=== PATIENT | female | born 1930 | race Caucasian/White ===

== ENCOUNTER 2016-07-04 15:36 | Inpatient (IN) ==
--- NOTE | 2016-07-04 16:04 | Emergency Department Note ---
Disposition Clinical Impression: Altered mental status, Pneumonia, UTI (urinary tract infection) Disposition: Admitted As Inpatient Condition: Good General Adult HPI - General Chief complaint: ED Altered Mental Status Stated complaint: altered mental Time Seen by Provider: 07/04/16 15:37 Source: patient, EMS Limitations: altered mental status, age - History of Present Illness Pain Scale: 0 - Related Data Home Medications Medication Instructions Recorded Confirmed Alprazolam [Xanax 1 MG Tablet] 1 mg PO TID PRN 07/04/16 07/04/16 Ascorbic Acid [Vitamin C] 1,000 mg PO DAILY 07/04/16 07/04/16 Brimonidine Tartrate/Timolol 1 drop BOTH EYES BID 07/04/16 07/04/16 [Combigan Eye Drops] Brinzolamide 1% [Azopt] 1 drop BOTH EYES QID 07/04/16 07/04/16 Candesartan Cilexetil [Atacand] 4 mg PO DAILY 07/04/16 07/04/16 Cholecalciferol (D-3) [Vitamin D] 1,000 unit PO DAILY 07/04/16 07/04/16 Cyanocobalamin (Vitamin B-12) 1,000 mcg PO DAILY 07/04/16 07/04/16 [Vitamin B12] Cyclosporine [Restasis] 1 each BOTH EYES BID 07/04/16 07/04/16 Docusate [Colace] 100 mg PO BID 07/04/16 07/04/16 Ferrous Sulfate 325 mg PO DAILY 07/04/16 07/04/16 Fluticasone Propionate Nasal 100 mcg NS DAILY 07/04/16 07/04/16 [Flonase] Fluticasone/Salmeterol [Advair 1 each IH BID 07/04/16 07/04/16 250-50 Diskus] Furosemide [Lasix] 20 mg PO DAILY 07/04/16 07/04/16 Latanoprost [Xalatan] 1 drop BOTH EYES HS 07/04/16 07/04/16 Levalbuterol HCl [Xopenex Neb] 1.25 mg IH QID 07/04/16 07/04/16 Levothyroxine [Synthroid] 100 mcg PO DAILY 07/04/16 07/04/16 Metoprolol XL (24 HR) Succ [Toprol 50 mg PO DAILY 07/04/16 07/04/16 XL] Nitroglycerin 0.3 mg SL Q5MIN PRN 07/04/16 07/04/16 Nystatin/Triamcinolone CRM 1 appl TP Q48H 07/04/16 07/04/16 [Mycolog] Omeprazole/Sodium Bicarbonate 1 each PO DAILY 07/04/16 07/04/16 [Zegerid 40 mg Capsule] Oxycodone HCl/Acetaminophen 1 each PO Q4H PRN 07/04/16 07/04/16 [Percocet 10-325 mg Tablet] Oxygen 2.5 l NS AD 07/04/16 07/04/16 PredniSONE 10 mg PO DAILY 07/04/16 07/04/16 Sertraline [Zoloft] 50 mg PO DAILY 07/04/16 07/04/16 Sodium Chloride for inhalation 4 ml IH BID 07/04/16 07/04/16 [Nebusal] Ubidecarenone [Coenzyme Q10] 200 mg PO DAILY 07/04/16 07/04/16 Vit C/E/Zn/Coppr/Lutein/Zeaxan 2 cap PO DAILY 07/04/16 07/04/16 [Preservision Areds 2 Softgel] Allergies Allergy/AdvReac Type Severity Reaction Status Date / Time escitalopram [From Lexapro] Allergy See Verified 07/04/16 15:41 Comments sulfamethoxazole Allergy See Verified 07/04/16 15:41 [From Bactrim] Comments trimethoprim [From Bactrim] Allergy See Verified 07/04/16 15:41 Comments Past Medical History - Past Medical History Medical history: Reports: atrial fibrillation, CHF, COPD, GERD, hyperlipidemia, hypertension, osteoporosis, venous stasis, other Psychiatric history: Reports: depression - Social History Smoking Status: Never smoker Alcohol use: Reports: none Drug use: Reports: none Physical Exam - General Limitations: altered mental status, age General appearance: in no apparent distress, lethargic Course - Reevaluation(s) Reevaluation #1: I saw the patient with resident, Dr. Dillon. Patient presents with altered mental status. She lives at home with family. They report that she is not eating or drinking and not urinating. They say that she is confused. They say she is decreased responsiveness as well. I find the patient to be responsive. However she lies in the bed with her eyes closed claiming that she is legally blind and therefore has to keep them closed. Further conversation indicates that the patient is indeed confused. She looks overall very unhealthy. She was just released from an outside facility after several days of admission for urinary tract infection and altered mental status that according to family was not dissimilar to today's presentation. We will get a workup going. We will get labs and a urine and some imaging studies. Neurologic examination does not indicate any focal findings. There are no signs of head trauma. Disposition will be based on diagnostic results and reevaluation. Time: 16:04 Vital Signs Temperature 98.1 F 07/04/16 15:37 Pulse Rate 77 07/04/16 15:37 Respiratory Rate 16 07/04/16 15:37 Blood Pressure 164/85 07/04/16 15:37 O2 Sat by Pulse Oximetry 97 07/04/16 15:37 Temperature 97.4 F L 07/08/16 11:16 Pulse Rate 82 07/08/16 11:16 Respiratory Rate 25 07/08/16 12:27 Blood Pressure 154/83 07/08/16 11:16 O2 Sat by Pulse Oximetry 99 07/08/16 12:27 Oxygen Delivery Oxygen Delivery Nasal Cannula Medical Decision Making - Lab Data Result diagrams: 07/08/16 04:28 07/08/16 04:28 Lab Results 07/04/16 07/04/16 07/04/16 Range/Units 16:25 16:38 16:38 WBC 11.0 (4.3-11.1) K/mcL RBC 4.48 (3.82-4.97) M/mcL Hgb 13.6 (11.5-15.4) g/dL Hct 43.7 (35.3-44.9) % MCV 97.5 (83.0-100.0) fL MCH 30.4 (28.0-33.3) pg MCHC 31.1 L (31.6-35.5) g/dL RDW 14.0 (11.5-14.5) % Plt Count 253 (140-400) K/mcL MPV 9.4 (9.4-12.4) fL Immature Gran % 3.4 (0-4) % Seg Neutrophils % 75.4 % Lymphocytes % 18.5 % Monocytes % 2.2 % Eosinophils % 0.0 % Basophils % 0.5 % Neutrophils # 8.3 (1.6-8.9) K/mcL Lymphocytes # 2.0 (0.6-4.6) K/mcL Monocytes # 0.2 (0.0-1.3) K/mcL Eosinophils # 0.0 (0.0-0.6) K/mcL Basophils # 0.1 (0.0-0.2) K/mcL PT 13.0 H (9.4-12.1) Seconds INR 1.2 ABG pH 7.38 (7.32-7.45) pH Units ABG pCO2 79 H* (35-45) mmHg ABG pO2 97 (85-104) mmHg ABG HCO3 46.7 H (21-27) mEQ/L ABG Total CO2 49.1 H (20-26) mEq/L ABG O2 Saturation 97 (95-98) % ABG Base Excess 16.3 H (-2.0 to 3.0) mEq/L Liter Flow 3 L/MIN Blood Gas Modality [place] Inspired O2 32 % Sodium (136-145) mEq/L Potassium (3.5-4.5) mEq/L Chloride (98-109) mEq/L Carbon Dioxide (19-29) mEq/L BUN (7-20) mg/dL Creatinine (0.57-1.11) mg/dL Est GFR ( Amer) (> 60) Est GFR (Non-Af Amer) (> 60) BUN/Creatinine Ratio (6-26) Glucose (70-99) mg/dL Calculated Osmolality (280-300) Lactic Acid (0.5-2.2) mmol/L Calcium (8.6-10.8) mg/dL Phosphorus (2.3-4.7) mg/dL Magnesium (1.6-2.6) mg/dL Total Bilirubin (0.2-1.2) mg/dL Direct Bilirubin (0.0-0.5) mg/dL Indirect Bilirubin (0.0-1.2) mg/dL AST (5-34) Units/L ALT (0-55) Units/L Alkaline Phosphatase (38-126) Units/L Ammonia (18-72) mcmol/L Troponin I (0-0.03) ng/mL Serum Total Protein (6.0-8.3) g/dL Albumin (3.5-5.0) g/dL Globulin (2.4-3.5) g/dL Albumin/Globulin Ratio (1.1-2.2) TSH (0.350-4.840) mcIU/mL Urine Color (Yellow) Urine Clarity (Clear) Urine pH (5.0-8.0) pH Units Ur Specific [place] (1.010-1.025) Urine Protein (Neg-Trace) mg/dL Urine Glucose (UA) (Normal) mg/dL Urine Ketones (Negative) mg/dL Urine Blood (Negative) Urine Nitrite (Negative) Urine Bilirubin (Negative) Urine Urobilinogen (Normal) mg/dL Ur Leukocyte Esterase (Negative) Urine Microscopic RBC (0-3) per hpf Urine Microscopic WBC (0-3) per hpf Ur Squamous Epith Cells (None-Few) per lpf Urine Bacteria (None-Few) per hpf Hyaline Casts (None-Few) per lpf Urine Yeast (None Seen) per hpf Ur Culture Indicated? (NO) 07/04/16 07/04/16 07/04/16 Range/Units 16:38 16:38 16:38 WBC (4.3-11.1) K/mcL RBC (3.82-4.97) M/mcL Hgb (11.5-15.4) g/dL Hct (35.3-44.9) % MCV (83.0-100.0) fL MCH (28.0-33.3) pg MCHC (31.6-35.5) g/dL RDW (11.5-14.5) % Plt Count (140-400) K/mcL MPV (9.4-12.4) fL Immature Gran % (0-4) % Seg Neutrophils % % Lymphocytes % % Monocytes % % Eosinophils % % Basophils % % Neutrophils # (1.6-8.9) K/mcL Lymphocytes # (0.6-4.6) K/mcL Monocytes # (0.0-1.3) K/mcL Eosinophils # (0.0-0.6) K/mcL Basophils # (0.0-0.2) K/mcL PT (9.4-12.1) Seconds INR ABG pH (7.32-7.45) pH Units ABG pCO2 (35-45) mmHg ABG pO2 (85-104) mmHg ABG HCO3 (21-27) mEQ/L ABG Total CO2 (20-26) mEq/L ABG O2 Saturation (95-98) % ABG Base Excess (-2.0 to 3.0) mEq/L Liter Flow L/MIN Blood Gas Modality Inspired O2 % Sodium 137 (136-145) mEq/L Potassium 4.1 (3.5-4.5) mEq/L Chloride 89 L (98-109) mEq/L Carbon Dioxide 39 H (19-29) mEq/L BUN 23 H (7-20) mg/dL Creatinine 0.83 (0.57-1.11) mg/dL Est GFR ( Amer) > 60 (> 60) Est GFR (Non-Af Amer) > 60 (> 60) BUN/Creatinine Ratio 28 H (6-26) Glucose 124 H (70-99) mg/dL Calculated Osmolality 289 (280-300) Lactic Acid 1.1 (0.5-2.2) mmol/L Calcium 9.8 (8.6-10.8) mg/dL Phosphorus 4.0 (2.3-4.7) mg/dL Magnesium 1.0 L (1.6-2.6) mg/dL Total Bilirubin 0.4 (0.2-1.2) mg/dL Direct Bilirubin 0.2 (0.0-0.5) mg/dL Indirect Bilirubin 0.2 (0.0-1.2) mg/dL AST 17 (5-34) Units/L ALT 7 (0-55) Units/L Alkaline Phosphatase 172 H (38-126) Units/L Ammonia (18-72) mcmol/L Troponin I 0.02 (0-0.03) ng/mL Serum Total Protein 6.4 (6.0-8.3) g/dL Albumin 2.2 L (3.5-5.0) g/dL Globulin 4.2 H (2.4-3.5) g/dL Albumin/Globulin Ratio 0.5 L (1.1-2.2) TSH 3.872 (0.350-4.840) mcIU/mL Urine Color (Yellow) Urine Clarity (Clear) Urine pH (5.0-8.0) pH Units Ur Specific [place] (1.010-1.025) Urine Protein (Neg-Trace) mg/dL Urine Glucose (UA) (Normal) mg/dL Urine Ketones (Negative) mg/dL Urine Blood (Negative) Urine Nitrite (Negative) Urine Bilirubin (Negative) Urine Urobilinogen (Normal) mg/dL Ur Leukocyte Esterase (Negative) Urine Microscopic RBC (0-3) per hpf Urine Microscopic WBC (0-3) per hpf Ur Squamous Epith Cells (None-Few) per lpf Urine Bacteria (None-Few) per hpf Hyaline Casts (None-Few) per lpf Urine Yeast (None Seen) per hpf Ur Culture Indicated? (NO) 07/04/16 07/04/16 Range/Units 16:38 18:52 WBC (4.3-11.1) K/mcL RBC (3.82-4.97) M/mcL Hgb (11.5-15.4) g/dL Hct (35.3-44.9) % MCV (83.0-100.0) fL MCH (28.0-33.3) pg MCHC (31.6-35.5) g/dL RDW (11.5-14.5) % Plt Count (140-400) K/mcL MPV (9.4-12.4) fL Immature Gran % (0-4) % Seg Neutrophils % % Lymphocytes % % Monocytes % % Eosinophils % % Basophils % % Neutrophils # (1.6-8.9) K/mcL Lymphocytes # (0.6-4.6) K/mcL Monocytes # (0.0-1.3) K/mcL Eosinophils # (0.0-0.6) K/mcL Basophils # (0.0-0.2) K/mcL PT (9.4-12.1) Seconds INR ABG pH (7.32-7.45) pH Units ABG pCO2 (35-45) mmHg ABG pO2 (85-104) mmHg ABG HCO3 (21-27) mEQ/L ABG Total CO2 (20-26) mEq/L ABG O2 Saturation (95-98) % ABG Base Excess (-2.0 to 3.0) mEq/L Liter Flow L/MIN Blood Gas Modality Inspired O2 % Sodium (136-145) mEq/L Potassium (3.5-4.5) mEq/L Chloride (98-109) mEq/L Carbon Dioxide (19-29) mEq/L BUN (7-20) mg/dL Creatinine (0.57-1.11) mg/dL Est GFR ( Amer) (> 60) Est GFR (Non-Af Amer) (> 60) BUN/Creatinine Ratio (6-26) Glucose (70-99) mg/dL Calculated Osmolality (280-300) Lactic Acid (0.5-2.2) mmol/L Calcium (8.6-10.8) mg/dL Phosphorus (2.3-4.7) mg/dL Magnesium (1.6-2.6) mg/dL Total Bilirubin (0.2-1.2) mg/dL Direct Bilirubin (0.0-0.5) mg/dL Indirect Bilirubin (0.0-1.2) mg/dL AST (5-34) Units/L ALT (0-55) Units/L Alkaline Phosphatase (38-126) Units/L Ammonia 13 L (18-72) mcmol/L Troponin I (0-0.03) ng/mL Serum Total Protein (6.0-8.3) g/dL Albumin (3.5-5.0) g/dL Globulin (2.4-3.5) g/dL Albumin/Globulin Ratio (1.1-2.2) TSH (0.350-4.840) mcIU/mL Urine Color Yellow (Yellow) Urine Clarity Cloudy A (Clear) Urine pH 5.5 (5.0-8.0) pH Units Ur Specific [place] 1.014 (1.010-1.025) Urine Protein Negative (Neg-Trace) mg/dL Urine Glucose (UA) Normal (Normal) mg/dL Urine Ketones Negative (Negative) mg/dL Urine Blood Negative (Negative) Urine Nitrite Negative (Negative) Urine Bilirubin Negative (Negative) Urine Urobilinogen Normal (Normal) mg/dL Ur Leukocyte Esterase Large H (Negative) Urine Microscopic RBC 0-3 (0-3) per hpf Urine Microscopic WBC TNTC H (0-3) per hpf Ur Squamous Epith Cells Few (None-Few) per lpf Urine Bacteria Few (None-Few) per hpf Hyaline Casts Few (None-Few) per lpf Urine Yeast Moderate H (None Seen) per hpf Ur Culture Indicated? YES A (NO) Attestation Statement - Attestation Attestation: I, Dr. Diaz, examined this patient [id number] and my medical decision- making was reviewed with Dr. Dillon, Resident Physician. I agree with the documented findings, disposition and treatment plan as described except to the extent set forth below. Please see my progress notes for details.
--- NOTE | 2016-07-04 16:14 | Emergency Department Note ---
Disposition Clinical Impression: Altered mental status Qualifiers: Altered mental status type: unspecified Qualified Code(s): R41.82 - Altered mental status, unspecified Pneumonia Qualifiers: Pneumonia type: due to unspecified organism Laterality: left Lung location: unspecified part of lung Qualified Code(s): J18.9 - Pneumonia, unspecified organism UTI (urinary tract infection) Qualifiers: Urinary tract infection type: site unspecified Hematuria presence: without hematuria Qualified Code(s): N39.0 - Urinary tract infection, site not specified Disposition: Admitted As Inpatient Condition: Good Forms: ED Satisfaction Letter Altered Mental Status HPI - General Chief Complaint: ED Altered Mental Status Stated Complaint: altered mental Time Seen by Provider: 07/04/16 15:37 Source: patient, EMS Limitations: altered mental status, age Nursing Notes Reviewed: Yes Vital Signs Reviewed: Yes - History of Present Illness HPI Narrative: Patient here for evaluation of altered mental status. Patient is an 86-year- old female with previous heart history including CHF and pacemaker placement, COPD requiring home oxygen. Present by EMS without family present at time of initial interview. Patient is alert and able to answer questions however she does not remember her date [employer] to go on tangents. [facility] with UTI upon similar symptoms. - Related Data Home Medications Medication Instructions Recorded Confirmed Alprazolam [Xanax 1 MG Tablet] 1 mg PO TID PRN 07/04/16 07/04/16 Ascorbic Acid [Vitamin C] 1,000 mg PO DAILY 07/04/16 07/04/16 Brimonidine Tartrate/Timolol 1 drop BOTH EYES BID 07/04/16 07/04/16 [Combigan Eye Drops] Brinzolamide 1% [Azopt] 1 drop BOTH EYES QID 07/04/16 07/04/16 Candesartan Cilexetil [Atacand] 4 mg PO DAILY 07/04/16 07/04/16 Cholecalciferol (D-3) [Vitamin D] 1,000 unit PO DAILY 07/04/16 07/04/16 Cyanocobalamin (Vitamin B-12) 1,000 mcg PO DAILY 07/04/16 07/04/16 [Vitamin B12] Cyclosporine [Restasis] 1 each BOTH EYES BID 07/04/16 07/04/16 Docusate [Colace] 100 mg PO BID 07/04/16 07/04/16 Ferrous Sulfate 325 mg PO DAILY 07/04/16 07/04/16 Fluticasone Propionate Nasal 100 mcg NS DAILY 07/04/16 07/04/16 [Flonase] Fluticasone/Salmeterol [Advair 1 each IH BID 07/04/16 07/04/16 250-50 Diskus] Furosemide [Lasix] 20 mg PO DAILY 07/04/16 07/04/16 Latanoprost [Xalatan] 1 drop BOTH EYES HS 07/04/16 07/04/16 Levalbuterol HCl [Xopenex Neb] 1.25 mg IH QID 07/04/16 07/04/16 Levothyroxine [Synthroid] 100 mcg PO DAILY 07/04/16 07/04/16 Metoprolol XL (24 HR) Succ [Toprol 50 mg PO DAILY 07/04/16 07/04/16 XL] Nitroglycerin 0.3 mg SL Q5MIN PRN 07/04/16 07/04/16 Nystatin/Triamcinolone CRM 1 appl TP Q48H 07/04/16 07/04/16 [Mycolog] Omeprazole/Sodium Bicarbonate 1 each PO DAILY 07/04/16 07/04/16 [Zegerid 40 mg Capsule] Oxycodone HCl/Acetaminophen 1 each PO Q4H PRN 07/04/16 07/04/16 [Percocet 10-325 mg Tablet] Oxygen 2.5 l NS AD 07/04/16 07/04/16 PredniSONE 10 mg PO DAILY 07/04/16 07/04/16 Sertraline [Zoloft] 50 mg PO DAILY 07/04/16 07/04/16 Sodium Chloride for inhalation 4 ml IH BID 07/04/16 07/04/16 [Nebusal] Ubidecarenone [Coenzyme Q10] 200 mg PO DAILY 07/04/16 07/04/16 Vit C/E/Zn/Coppr/Lutein/Zeaxan 2 cap PO DAILY 07/04/16 07/04/16 [Preservision Areds 2 Softgel] Allergies Allergy/AdvReac Type Severity Reaction Status Date / Time escitalopram [From Lexapro] Allergy See Verified 07/04/16 15:41 Comments sulfamethoxazole Allergy See Verified 07/04/16 15:41 [From Bactrim] Comments trimethoprim [From Bactrim] Allergy See Verified 07/04/16 15:41 Comments All systems ED: reviewed and negative except as stated. Constitutional: Reports: chills, weakness. Denies: fever Eyes: Denies: eye pain ENT ED: Denies: ear pain Cardiovascular: Denies: chest pain Respiratory: Denies: cough Gastrointestinal: Denies: abdominal pain, nausea, vomiting Genitourinary: Denies: urgency, dysuria Musculoskeletal: Denies: back pain Integumentary: Denies: rash Neurological: Reports: weakness, confusion. Denies: headache Endocrine: Reports: fatigue Past Medical History - Past Medical History Medical history: Reports: CHF, COPD, hypertension - Social History Smoking Status: Never smoker Alcohol use: Reports: none Drug use: Reports: none Physical Exam - General Limitations: altered mental status, age General appearance: in no apparent distress, lethargic - Head Head exam: atraumatic, normocephalic - Eye Eye exam: Present: normal appearance - ENT ENT exam: normal exam, normal oropharynx, mucous membranes dry - Neck Neck exam: Present: normal inspection - Chest Chest inspection: Present: normal inspection, symmetric chest wall rise, other ( candidal infection). Absent: tenderness - Respiratory Respiratory exam: Present: normal lung sounds bilaterally. 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 Initial ulcer superficial through the epidermis. Second ulcer into the dermis. Purple color change of the skin approximately 8 cm x 9 cm without erythema or purulent drainage.) - Neurological Exam Neurological exam: Present: other (Able to state name birthdate year and converse as well as follow simple commands.) - Skin Skin exam: Present: other (As described in other organ systems) Course - Reevaluation(s) Reevaluation #1: After discussing with social work. Patient has not been seen at this facility because the patient recently moved from [place]. Patient was initially healthy and then 1 day was not able to walk. Patient has had workup for that at the [facility] in February as well as geriatric eval which was unable to find a specific problem. Patient passed competency test. Patient is currently undergoing private home health care with cost about $12,000 monthly. Family moved to be closer to her grandson as he is able to help participate in care. Reevaluation #2: Patient's x-ray concerning for pneumonia. In light of her continued mental status the patient was placed on BiPAP. BiPAP delayed secondary to CO2 elevation appearing compensated and not likely causing her to mental status change. Patient has been on home oxygen that has been kept around 100% on 2 L. This time the patient was initially given ceftriaxone for concern of urinary tract infection however after chest x-ray reveals concern for pneumonia azithromycin was also added. Patient is not tolerating BiPAP and is upset that we would try to keep her from sleeping. Patient states she does not want that and she was told that we would put it on without pressure just to help get her used to it. Patient states she is not having any problems and is able to state her name and what is going on, that she is at the hospital. At this time will continue to encourage her getting used to BiPAP but she is not having an acute need for support. Recommend continued breathing treatments and encouragement of BiPAP at this time. - Consultations Consultation #1: Discussed with hospitalist. Dr. Ovalle. Patient accepted for admission. Vital Signs Temperature 98.1 F 07/04/16 15:37 Pulse Rate 77 07/04/16 15:37 Respiratory Rate 16 07/04/16 15:37 Blood Pressure 164/85 07/04/16 15:37 O2 Sat by Pulse Oximetry 97 07/04/16 15:37 Temperature 98.1 F 07/04/16 15:37 Pulse Rate 71 07/04/16 20:25 Respiratory Rate 14 07/04/16 20:25 Blood Pressure 145/62 07/04/16 20:25 O2 Sat by Pulse Oximetry 99 07/04/16 20:25 Oxygen Delivery Oxygen Delivery Nasal Cannula Altered Mental Status - Medical Records Medical records reviewed: Yes I reviewed the patient's medical records. - Lab Data Lab results reviewed: Yes I reviewed the patient's lab results. Result diagrams: 07/04/16 16:38 07/04/16 16:38 Lab Results 07/04/16 07/04/16 07/04/16 Range/Units 16:25 16:38 16:38 WBC 11.0 (4.3-11.1) K/mcL RBC 4.48 (3.82-4.97) M/mcL Hgb 13.6 (11.5-15.4) g/dL Hct 43.7 (35.3-44.9) % MCV 97.5 (83.0-100.0) fL MCH 30.4 (28.0-33.3) pg MCHC 31.1 L (31.6-35.5) g/dL RDW 14.0 (11.5-14.5) % Plt Count 253 (140-400) K/mcL MPV 9.4 (9.4-12.4) fL Immature Gran % 3.4 (0-4) % Seg Neutrophils % 75.4 % Lymphocytes % 18.5 % Monocytes % 2.2 % Eosinophils % 0.0 % Basophils % 0.5 % Neutrophils # 8.3 (1.6-8.9) K/mcL Lymphocytes # 2.0 (0.6-4.6) K/mcL Monocytes # 0.2 (0.0-1.3) K/mcL Eosinophils # 0.0 (0.0-0.6) K/mcL Basophils # 0.1 (0.0-0.2) K/mcL PT 13.0 H (9.4-12.1) Seconds INR 1.2 ABG pH 7.38 (7.32-7.45) pH Units ABG pCO2 79 H* (35-45) mmHg ABG pO2 97 (85-104) mmHg ABG HCO3 46.7 H (21-27) mEQ/L ABG Total CO2 49.1 H (20-26) mEq/L ABG O2 Saturation 97 (95-98) % ABG Base Excess 16.3 H (-2.0 to 3.0) mEq/L Liter Flow 3 L/MIN Blood Gas Modality NC Inspired O2 32 % Sodium (136-145) mEq/L Potassium (3.5-4.5) mEq/L Chloride (98-109) mEq/L Carbon Dioxide (19-29) mEq/L BUN (7-20) mg/dL Creatinine (0.57-1.11) mg/dL Est GFR ( Amer) (> 60) Est GFR (Non-Af Amer) (> 60) BUN/Creatinine Ratio (6-26) Glucose (70-99) mg/dL Calculated Osmolality (280-300) Lactic Acid (0.5-2.2) mmol/L Calcium (8.6-10.8) mg/dL Phosphorus (2.3-4.7) mg/dL Magnesium (1.6-2.6) mg/dL Total Bilirubin (0.2-1.2) mg/dL Direct Bilirubin (0.0-0.5) mg/dL Indirect Bilirubin (0.0-1.2) mg/dL AST (5-34) Units/L ALT (0-55) Units/L Alkaline Phosphatase (38-126) Units/L Ammonia (18-72) mcmol/L Troponin I (0-0.03) ng/mL Serum Total Protein (6.0-8.3) g/dL Albumin (3.5-5.0) g/dL Globulin (2.4-3.5) g/dL Albumin/Globulin Ratio (1.1-2.2) TSH (0.350-4.840) mcIU/mL Urine Color (Yellow) Urine Clarity (Clear) Urine pH (5.0-8.0) pH Units Ur Specific Mineral (1.010-1.025) Urine Protein (Neg-Trace) mg/dL Urine Glucose (UA) (Normal) mg/dL Urine Ketones (Negative) mg/dL Urine Blood (Negative) Urine Nitrite (Negative) Urine Bilirubin (Negative) Urine Urobilinogen (Normal) mg/dL Ur Leukocyte Esterase (Negative) Urine Microscopic RBC (0-3) per hpf Urine Microscopic WBC (0-3) per hpf Ur Squamous Epith Cells (None-Few) per lpf Urine Bacteria (None-Few) per hpf Hyaline Casts (None-Few) per lpf Urine Yeast (None Seen) per hpf Ur Culture Indicated? (NO) 07/04/16 07/04/16 07/04/16 Range/Units 16:38 16:38 16:38 WBC (4.3-11.1) K/mcL RBC (3.82-4.97) M/mcL Hgb (11.5-15.4) g/dL Hct (35.3-44.9) % MCV (83.0-100.0) fL MCH (28.0-33.3) pg MCHC (31.6-35.5) g/dL RDW (11.5-14.5) % Plt Count (140-400) K/mcL MPV (9.4-12.4) fL Immature Gran % (0-4) % Seg Neutrophils % % Lymphocytes % % Monocytes % % Eosinophils % % Basophils % % Neutrophils # (1.6-8.9) K/mcL Lymphocytes # (0.6-4.6) K/mcL Monocytes # (0.0-1.3) K/mcL Eosinophils # (0.0-0.6) K/mcL Basophils # (0.0-0.2) K/mcL PT (9.4-12.1) Seconds INR ABG pH (7.32-7.45) pH Units ABG pCO2 (35-45) mmHg ABG pO2 (85-104) mmHg ABG HCO3 (21-27) mEQ/L ABG Total CO2 (20-26) mEq/L ABG O2 Saturation (95-98) % ABG Base Excess (-2.0 to 3.0) mEq/L Liter Flow L/MIN Blood Gas Modality Inspired O2 % Sodium 137 (136-145) mEq/L Potassium 4.1 (3.5-4.5) mEq/L Chloride 89 L (98-109) mEq/L Carbon Dioxide 39 H (19-29) mEq/L BUN 23 H (7-20) mg/dL Creatinine 0.83 (0.57-1.11) mg/dL Est GFR ( Amer) > 60 (> 60) Est GFR (Non-Af Amer) > 60 (> 60) BUN/Creatinine Ratio 28 H (6-26) Glucose 124 H (70-99) mg/dL Calculated Osmolality 289 (280-300) Lactic Acid 1.1 (0.5-2.2) mmol/L Calcium 9.8 (8.6-10.8) mg/dL Phosphorus 4.0 (2.3-4.7) mg/dL Magnesium 1.0 L (1.6-2.6) mg/dL Total Bilirubin 0.4 (0.2-1.2) mg/dL Direct Bilirubin 0.2 (0.0-0.5) mg/dL Indirect Bilirubin 0.2 (0.0-1.2) mg/dL AST 17 (5-34) Units/L ALT 7 (0-55) Units/L Alkaline Phosphatase 172 H (38-126) Units/L Ammonia (18-72) mcmol/L Troponin I 0.02 (0-0.03) ng/mL Serum Total Protein 6.4 (6.0-8.3) g/dL Albumin 2.2 L (3.5-5.0) g/dL Globulin 4.2 H (2.4-3.5) g/dL Albumin/Globulin Ratio 0.5 L (1.1-2.2) TSH 3.872 (0.350-4.840) mcIU/mL Urine Color (Yellow) Urine Clarity (Clear) Urine pH (5.0-8.0) pH Units Ur Specific Mineral (1.010-1.025) Urine Protein (Neg-Trace) mg/dL Urine Glucose (UA) (Normal) mg/dL Urine Ketones (Negative) mg/dL Urine Blood (Negative) Urine Nitrite (Negative) Urine Bilirubin (Negative) Urine Urobilinogen (Normal) mg/dL Ur Leukocyte Esterase (Negative) Urine Microscopic RBC (0-3) per hpf Urine Microscopic WBC (0-3) per hpf Ur Squamous Epith Cells (None-Few) per lpf Urine Bacteria (None-Few) per hpf Hyaline Casts (None-Few) per lpf Urine Yeast (None Seen) per hpf Ur Culture Indicated? (NO) 07/04/16 07/04/16 Range/Units 16:38 18:52 WBC (4.3-11.1) K/mcL RBC (3.82-4.97) M/mcL Hgb (11.5-15.4) g/dL Hct (35.3-44.9) % MCV (83.0-100.0) fL MCH (28.0-33.3) pg MCHC (31.6-35.5) g/dL RDW (11.5-14.5) % Plt Count (140-400) K/mcL MPV (9.4-12.4) fL Immature Gran % (0-4) % Seg Neutrophils % % Lymphocytes % % Monocytes % % Eosinophils % % Basophils % % Neutrophils # (1.6-8.9) K/mcL Lymphocytes # (0.6-4.6) K/mcL Monocytes # (0.0-1.3) K/mcL Eosinophils # (0.0-0.6) K/mcL Basophils # (0.0-0.2) K/mcL PT (9.4-12.1) Seconds INR ABG pH (7.32-7.45) pH Units ABG pCO2 (35-45) mmHg ABG pO2 (85-104) mmHg ABG HCO3 (21-27) mEQ/L ABG Total CO2 (20-26) mEq/L ABG O2 Saturation (95-98) % ABG Base Excess (-2.0 to 3.0) mEq/L Liter Flow L/MIN Blood Gas Modality Inspired O2 % Sodium (136-145) mEq/L Potassium (3.5-4.5) mEq/L Chloride (98-109) mEq/L Carbon Dioxide (19-29) mEq/L BUN (7-20) mg/dL Creatinine (0.57-1.11) mg/dL Est GFR ( Amer) (> 60) Est GFR (Non-Af Amer) (> 60) BUN/Creatinine Ratio (6-26) Glucose (70-99) mg/dL Calculated Osmolality (280-300) Lactic Acid (0.5-2.2) mmol/L Calcium (8.6-10.8) mg/dL Phosphorus (2.3-4.7) mg/dL Magnesium (1.6-2.6) mg/dL Total Bilirubin (0.2-1.2) mg/dL Direct Bilirubin (0.0-0.5) mg/dL Indirect Bilirubin (0.0-1.2) mg/dL AST (5-34) Units/L ALT (0-55) Units/L Alkaline Phosphatase (38-126) Units/L Ammonia 13 L (18-72) mcmol/L Troponin I (0-0.03) ng/mL Serum Total Protein (6.0-8.3) g/dL Albumin (3.5-5.0) g/dL Globulin (2.4-3.5) g/dL Albumin/Globulin Ratio (1.1-2.2) TSH (0.350-4.840) mcIU/mL Urine Color Yellow (Yellow) Urine Clarity Cloudy A (Clear) Urine pH 5.5 (5.0-8.0) pH Units Ur Specific Mineral 1.014 (1.010-1.025) Urine Protein Negative (Neg-Trace) mg/dL Urine Glucose (UA) Normal (Normal) mg/dL Urine Ketones Negative (Negative) mg/dL Urine Blood Negative (Negative) Urine Nitrite Negative (Negative) Urine Bilirubin Negative (Negative) Urine Urobilinogen Normal (Normal) mg/dL Ur Leukocyte Esterase Large H (Negative) Urine Microscopic RBC 0-3 (0-3) per hpf Urine Microscopic WBC TNTC H (0-3) per hpf Ur Squamous Epith Cells Few (None-Few) per lpf Urine Bacteria Few (None-Few) per hpf Hyaline Casts Few (None-Few) per lpf Urine Yeast Moderate H (None Seen) per hpf Ur Culture Indicated? YES A (NO) - Radiology Data Radiology results reviewed: Yes I reviewed the patient's radiology results. - EKG Data EKG attestation: Yes I reviewed and interpreted this EKG. EKG results narrative: EKG shows paced rhythm with ventricular rate of 83 bpm. NH interval 159. QRS 155. QTC 448. Discogram ST segment elevation to V1 and V2 of approximately 1.5 boxes. T-wave inversions in lead 3 and aVF. No previous EKG. TPA Checklist - LKW: 3-4.5 hrs Add. Contraindications Patient/family understanding: The patient/family members have been counseled and understood the risk, benefit , and alternatives of treatment.
[2016-07-04 16:36] LABS: ABG Base Excess 16.3 mEq/L (-2.0 to 3.0); ABG HCO3 46.7 mEQ/L (21-27); ABG Oxygen Saturation 97 % (95-98); ABG PH 7.38 pH Units (7.32-7.45); ABG PO2 97 mmHg (85-104); ABG TCO2 49.1 mEq/L (20-26)
[2016-07-04 16:38] LABS: ABG PCO2 79 mmHg (35-45); Blood Gas FiO2 32 %; Blood Gas Liter Flow 3 L/MIN
[2016-07-04] MEDS ORDERED: Ipratropium/Albuterol Neb 3 ML IH ONE (16:58)
[2016-07-04 17:02] LABS: Basophils # 0.1 K/mcL (0.0-0.2); Basophils % 0.5 %; Hematocrit 43.7 % (35.3-44.9); Hemoglobin 13.6 g/dL (11.5-15.4); Immature Granulocytes % 3.4 % (0-4); Lymphocytes % 18.5 %; Mean Corpuscular HGB Conc 31.1 g/dL (31.6-35.5); Mean Corpuscular Hemoglobin 30.4 pg (28.0-33.3); Mean Corpuscular Volume 97.5 fL (83.0-100.0); Mean Platelet Volume 9.4 fL (9.4-12.4); Monocytes # 0.2 K/mcL (0.0-1.3); Monocytes % 2.2 %; Neutrophils # 8.3 K/mcL (1.6-8.9); Platelet Count 253 K/mcL (140-400); Red Blood Count 4.48 M/mcL (3.82-4.97); Segmented Neutrophils % 75.4 %
[2016-07-04 17:08] LABS: INR 1.2
[2016-07-04 17:20] LABS: Alanine Aminotransferase 7 Units/L (0-55); Albumin 2.2 g/dL (3.5-5.0); Albumin/Globulin Ratio 0.5 (1.1-2.2); Alkaline Phosphatase 172 Units/L (38-126); Aspartate Amino Transferase 17 Units/L (5-34); BUN/Creatinine Ratio 28 (6-26); Bilirubin,Direct 0.2 mg/dL (0.0-0.5); Bilirubin,Indirect 0.2 mg/dL (0.0-1.2); Bilirubin,Total 0.4 mg/dL (0.2-1.2); Blood Urea Nitrogen 23 mg/dL (7-20); Calcium 9.8 mg/dL (8.6-10.8); Carbon Dioxide 39 mEq/L (19-29); Chloride 89 mEq/L (98-109); Globulin 4.2 g/dL (2.4-3.5); Glucose 124 mg/dL (70-99); Osmolality,Calculated 289 (280-300); Potassium 4.1 mEq/L (3.5-4.5); Sodium 137 mEq/L (136-145); Total Protein 6.4 g/dL (6.0-8.3); eGFR For African Americans > 60 (> 60); eGFR For Non-African Americans > 60 (> 60)
[2016-07-04 18:14] LABS: Thyroid Stimulating Hormone 3.872 mcIU/mL (0.350-4.840)
[2016-07-04 19:03] LABS: Bilirubin,Urine Negative (Negative); Blood,Urine Negative (Negative); Clarity,Urine Cloudy (Clear); Color,Urine Yellow (Yellow); Glucose,Urine (UA) Normal (Normal); Ketones,Urine Negative (Negative); Leukocyte Esterase,Urine Large (Negative); Nitrite,Urine Negative (Negative); PH,Urine 5.5 pH Units (5.0-8.0); Protein,Urine Negative (Neg-Trace); Specific Gravity,Urine 1.014 (1.010-1.025); Urobilinogen,Urine Normal (Normal)
[2016-07-04 19:04] LABS: Squamous Epithelial Cell,Urine Few per lpf (None-Few); WBC,Urine TNTC per hpf (0-3)
[2016-07-04 19:15] LABS: RBC,Urine 0-3 per hpf (0-3)
[2016-07-04 19:16] LABS: Bacteria,Urine Few per hpf (None-Few); Hyaline Casts,Urine Few per lpf (None-Few); Yeast,Urine Moderate per hpf (None Seen)
[2016-07-04] MEDS ORDERED: Azithromycin 500 MG in D5% in Water 250 ML IVPB ONE (20:19)
[2016-07-04] MEDS ORDERED: Magnesium Sulfate 2 GM in D5% in Water 100 ML IVPB ONE (20:48)
[2016-07-04] MEDS ORDERED: Acetaminophen 325 MG TABLET PO PRN (22:07)
[2016-07-04] MEDS ORDERED: Naloxone 0.4 MG/ML INJ IVP PRN (22:07)
[2016-07-04] MEDS ORDERED: Nitroglycerin 0.4 MG TAB.SUBL SL PRN (22:17)
[2016-07-04] MEDS ORDERED: Albuterol 2.5 MG/3 ML NEBULIZER IH PRN (22:22)
--- NOTE | 2016-07-04 22:46 | Internal Med History&Physical ---
<Bethany Stein M - Last Filed: 07/04/16 23:40> Date of Encounter: 07/04/16 Time of Encounter: 22:28 Assessment and Plan (1) Pneumonia Current visit: Yes Status: Acute Patient with cough and some shortness of breath. CXR showed consolidative airspace disease of left lung base, moderate right basilar atelectasis, and mild diffuse interstitial edema. Ceftriaxone and Azithromycin initiated by ED Patient with recent admission to outside hospital for UTI, will treat for HCAP. Start Vancomycin and Zosyn. Duoneb treatments QIDR Albuterol nebulizer Q2 PRN titrate O2 to maintain O2 sat >92% Qualifiers: Pneumonia type: due to unspecified organism Laterality: left Lung location: unspecified part of lung Qualified Code(s): J18.9 - Pneumonia, unspecified organism (2) UTI (urinary tract infection) Current visit: Yes Status: Acute Patient with recent hospitalization for UTI. Urine cloudy in [place]. UA concerning for UTI, cultures pending. Rocephin/Azithromycin given by ED. Will start on Vanc/Zosyn for HCAP, which should also cover her UTI. Qualifiers: Urinary tract infection type: site unspecified Hematuria presence: without hematuria Qualified Code(s): N39.0 - Urinary tract infection, site not specified (3) Hypomagnesemia Current visit: Yes Status: Acute Magnesium of 1.0 2g magnesium sulfate IVPB given recheck in the morning. (4) COPD (chronic obstructive pulmonary disease) Current visit: Yes Status: Acute Wears 2L NC at home. titrate O2 to maintain O2 saturation > 92% duoneb treatments QIDR Albuterol nebulizer Q2hr PRN Qualifiers: COPD type: unspecified COPD Qualified Code(s): J44.9 - Chronic obstructive pulmonary disease, unspecified (5) Pressure ulcer of back Current visit: Yes Status: Acute Consult wound team Qualifiers: Pressure ulcer stage: unspecified pressure ulcer stage Qualified Code(s): L89.109 - Pressure ulcer of unspecified part of back, unspecified stage (6) Functional quadriplegia Current visit: Yes Status: Acute Patient has been bed bound for years, with know discernible cause. Per family, work up has not revealed any cause. She has 24 hour home health care. Turn and position Q2 hours Social work consulted Palliative care consulted (7) Altered mental status Current visit: Yes Status: Acute Patient alert and oriented x 2, but cannot remember birthdate. She answers questions appropriately and is aware of situation and context. CT head with no acute process Similar presentation as recent UTI. Likely due to infection. Qualifiers: Altered mental status type: unspecified Qualified Code(s): R41.82 - Altered mental status, unspecified (8) Hypertension Current visit: Yes Status: Acute Continued home doses of candesartan and metoprolol. Hydralazine 10mg IVP for SBP > 160. Qualifiers: Hypertension type: essential hypertension Qualified Code(s): I10 - Essential (primary) hypertension (9) DVT prophylaxis Current visit: Yes Status: Acute Up to chair BID as tolerated anti-embolic stockings Heparin 5,000u SQ BID Internal Medicine - H&P: HPI Chief complaint: Altered mental status Admitted From: Emergency Dept Plans for Post Hospital Care: [facility] History of present illness: Ms. Schulte is a 86 year old female with history of hypertension, hyperlipidemia , CAD s/p CABG, Afib, pacemaker, COPD presented to the ED with mental status change. Patient mildly confused and refusing to open her eyes, and family stated this is how she behaved when diagnosed with a UTI recently. Patient alert and oriented x 2, but cannot remember her own birthday. She reports worsening cough and shortness of breath. She wears oxygen at home. She denies any chest pain, palpitations, headache, nausea, vomiting or diarrhea. Evaluation in the ED was significant for CXR which showed consolidative airspace disease of left lung base, moderate right basilar atelectasis, and mild diffuse interstitial edema. UA consistent with UTI, cultures pending. Magnesium was low at 1.0 and she was given 2g of magnesium IVPB. Patient is functionally quadriplegic, having been bed bound for years and has 24 hour care at home. Per the family, she has been worked up for this, with no answers. On exam, patient is alert and oriented x 2, in no distress, and appears comfortable. Lungs have mild crackles in bilateral bases, Heart with regular rate and rhythm. Urine appears cloudy in sanches bag. Past Med Surg Social Fam HX - Past Medical History Medical history: atrial fibrillation, CHF, COPD, coronary artery disease, hyperlipidemia, hypertension Psychiatric history: depression - Past Surgical History Surgical History: coronary bypass (CABG), pacemaker - Social History Smoking Status: Never smoker Alcohol use: none Drug use: none Current living situation: Home Activity Level: Bed bound - Family History Mother Living Status: Age at : 69 Cause of : cva Father Living Status: Age at : 80 Cause of : CVA Internal Medicine - H&P: Meds Alprazolam [Xanax 1 MG Tablet] 1 mg PO TID PRN 07/04/16 [History] Ascorbic Acid [Vitamin C] 1,000 mg PO DAILY 07/04/16 [History] Brimonidine Tartrate/Timolol [Combigan Eye Drops] 1 drop BOTH EYES BID 07/04/16 [History] Brinzolamide 1% [Azopt] 1 drop BOTH EYES QID 07/04/16 [History] Candesartan Cilexetil [Atacand] 4 mg PO DAILY 07/04/16 [History] Cholecalciferol (D-3) [Vitamin D] 1,000 unit PO DAILY 07/04/16 [History] Cyanocobalamin (Vitamin B-12) [Vitamin B12] 1,000 mcg PO DAILY 07/04/16 [History ] Cyclosporine [Restasis] 1 each BOTH EYES BID 07/04/16 [History] Docusate [Colace] 100 mg PO BID 07/04/16 [History] Ferrous Sulfate 325 mg PO DAILY 07/04/16 [History] Fluticasone Propionate Nasal [Flonase] 100 mcg NS DAILY 07/04/16 [History] Fluticasone/Salmeterol [Advair 250-50 Diskus] 1 each IH BID 07/04/16 [History] Furosemide [Lasix] 20 mg PO DAILY 07/04/16 [History] Latanoprost [Xalatan] 1 drop BOTH EYES HS 07/04/16 [History] Levalbuterol HCl [Xopenex Neb] 1.25 mg IH QID 07/04/16 [History] Levothyroxine [Synthroid] 100 mcg PO DAILY 07/04/16 [History] Metoprolol XL (24 HR) Succ [Toprol XL] 50 mg PO DAILY 07/04/16 [History] Nitroglycerin 0.3 mg SL Q5MIN PRN 07/04/16 [History] Nystatin/Triamcinolone CRM [Mycolog] 1 appl TP Q48H 07/04/16 [History] Omeprazole/Sodium Bicarbonate [Zegerid 40 mg Capsule] 1 each PO DAILY 07/04/16 [ History] Oxycodone HCl/Acetaminophen [Percocet 10-325 mg Tablet] 1 each PO Q4H PRN [History] Oxygen 2.5 l NS AD 07/04/16 [History] PredniSONE 10 mg PO DAILY 07/04/16 [History] Sertraline [Zoloft] 50 mg PO DAILY 07/04/16 [History] Sodium Chloride for inhalation [Nebusal] 4 ml IH BID 07/04/16 [History] Ubidecarenone [Coenzyme Q10] 200 mg PO DAILY 07/04/16 [History] Vit C/E/Zn/Coppr/Lutein/Zeaxan [Preservision Areds 2 Softgel] 2 cap PO DAILY 06/08 [History] Allergies escitalopram [From Lexapro] Allergy (Verified 07/04/16 15:41) See Comments sulfamethoxazole [From Bactrim] Allergy (Verified 07/04/16 15:41) See Comments trimethoprim [From Bactrim] Allergy (Verified 07/04/16 15:41) See Comments All Systems PM: A 10-system review of systems was performed and is negative for pertinent findings except as documented above in the HPI. - Constitutional Constitutional: weakness, no chills, no fever(s), no night sweats - EENT Eyes: loss of vision (legally blind), no change in vision (legally blind), no discharge, no pain, no photophobia Ears: no ear discharge, no ear pain, no tinnitus Nose, mouth and throat: dry mouth, no dysphagia, no nasal discharge, no neck pain, no sore throat - Cardiovascular Cardiovascular ROS IM: dyspnea, no chest pain, no diaphoresis, no lightheadedness, no palpitations, no syncope - Respiratory Respiratory: cough, no dyspnea, no wheezing, no excessive phlegm production - Gastrointestinal Gastrointestinal: no abdominal pain, no diarrhea, no hematemesis, no hematochezia, no melena, no nausea, no vomiting - Genitourinary Genitourinary: no change in urinary stream, no dysuria, no flank pain, no hematuria - Musculoskeletal Musculoskeletal ROS IM: no numbness, no tingling - Integumentary Integumentary IM: no rash, no unusual bruising - Neurological Neurological ROS: no confusion, no convulsions, no focal weakness, no numbness, no tingling, no tremor(s) - Hematologic/Lymphatic Hematologic/Lymphatic: no easy bruising - Constitutional Vitals: Temp Pulse Resp BP Pulse Ox 0 F L 71 13 165/79 99 07/04/16 22:07 07/04/16 20:25 07/04/16 22:07 07/04/16 22:07 07/04/16 20:25 General appearance: Present: A&O X 2, no acute distress - Head Head exam: Present: atraumatic, normocephalic - Eye Eye exam: Present: conjunctival injection, conjuntiva pink, sclera anicteric Pupils: Present: PERRL Additional comments: pupils clouded over, clear drainage - Neck Neck exam general surgery: Present: supple, trachea midline. Absent: lymphadenopathy - Respiratory Respiratory exam: Present: CTAB. Absent: accessory muscle use, rales, rhonchi, wheezes - Cardiovascular Cardiovascular exam: Present: RRR, +S1, +S2. Absent: diastolic murmur, gallop, rubs, systolic murmur - GI/Abdominal GI/Abdominal exam: Present: normal bowel sounds, soft, tenderness (mildly diffuse ), no peritoneal signs. Absent: distended - Extremities Exam Extremities exam: Present: pedal edema, warm, radial pulses palpable and symetrical. Absent: calf tenderness, cyanotic - Neurological Exam Neurological exam: Present: CN II-XII intact, no focal deficits. 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 Schulte is a 86 year old female All Systems PM: A 10-system review of systems was performed and is negative for pertinent findings except as documented above in the HPI. - Constitutional Vitals: Temp Pulse Resp BP Pulse Ox 98.2 F 74 16 109/57 97 07/05/16 03:37 07/05/16 03:37 07/04/16 23:22 07/05/16 03:37 07/05/16 03:37 Internal Med - H&P Results - Labs CBC & Chem 7: 07/05/16 03:48 07/05/16 03:48 Labs: Short CBC 07/05/16 Range/Units 03:48 WBC 13.1 H (4.3-11.1) K/mcL Hgb 11.8 D (11.5-15.4) g/dL Hct 36.2 (35.3-44.9) % Plt Count 302 (140-400) K/mcL Neutrophils # 8.5 (1.6-8.9) K/mcL BMP 07/05/16 03:48 Sodium 135 L Potassium 3.8 Chloride 88 L Carbon Dioxide 38 H BUN 22 H Creatinine 0.75 Glucose 82 Calcium 9.2 - Attending Attestation Patient independently seen and examined at bedside. Admitted for change in mental status likely secondary to UTI and PNA. -PNA: hx of recent hospitalization, will treat as HCAP, continue Vanco and Zosyn. Pharmacy to dose Vanco and closely monitor Vanco trough. F/U Blood cultures -UTI: continue IV abx, f/u urine cultures -Closely monitor electrolytes and replace as needed -Hx of atrial fibrillation but not on anticoagulation due to unknown reasons. -Hx of COPD on home oxygen, not in acute exacerbation, continue O2 supplementation, bronchodilators as needed. Goal O2: 89-92% -Family unsure why the patient is bed bound. -Diffuse ulceration on bilateral lower extremities given history of actinic keratosis. Follow up wound care -Given extensive medical history and poor status, Palliative care consulted for goals of care and further discussion of advance directives/living will. Case was discussed with YSA Stein, I agree with her documented findings , assessment, and plan except as listed above.
[2016-07-04] MEDS: Ipratropium/Albuterol Neb 3 ML IH SCH (23:18)
[2016-07-04] MEDS: ALPRAZolam 1 MG TABLET PO PRN (23:23)
[2016-07-04] MEDS: *HR* HYDROcodone/Acet 5/325 mg TABLET PO PRN (23:24)
[2016-07-04] MEDS: 0.9 % Sodium Chloride 1,000 ML IVC SCH (23:31)
[2016-07-04] MEDS: Vancomycin 1,250 MG in D5% in Water 250 ML IVPB SCH (23:36)
[2016-07-05 04:19] LABS: BUN/Creatinine Ratio 29 (6-26); Basophils # 0.1 K/mcL (0.0-0.2); Basophils % 0.5 %; Blood Urea Nitrogen 22 mg/dL (7-20); Calcium 9.2 mg/dL (8.6-10.8); Carbon Dioxide 38 mEq/L (19-29); Chloride 88 mEq/L (98-109); Eosinophils # 0.1 K/mcL (0.0-0.6); Eosinophils % 0.5 %; Glucose 82 mg/dL (70-99); Hematocrit 36.2 % (35.3-44.9); Immature Granulocytes % 2.1 % (0-4); Lymphocytes # 3.4 K/mcL (0.6-4.6); Lymphocytes % 25.7 %; Magnesium 1.8 mg/dL (1.6-2.6); Mean Corpuscular HGB Conc 32.6 g/dL (31.6-35.5); Mean Corpuscular Hemoglobin 31.2 pg (28.0-33.3); Mean Corpuscular Volume 95.8 fL (83.0-100.0); Mean Platelet Volume 9.6 fL (9.4-12.4); Monocytes # 0.8 K/mcL (0.0-1.3); Neutrophils # 8.5 K/mcL (1.6-8.9); Osmolality,Calculated 282 (280-300); Phosphorous 3.4 mg/dL (2.3-4.7); Platelet Count 302 K/mcL (140-400); Potassium 3.8 mEq/L (3.5-4.5); Red Blood Count 3.78 M/mcL (3.82-4.97); Red Cell Distribution Width 14.2 % (11.5-14.5); Segmented Neutrophils % 65.2 %; Sodium 135 mEq/L (136-145); eGFR For African Americans > 60 (> 60); eGFR For Non-African Americans > 60 (> 60)
[2016-07-05 04:29] LABS: Hemoglobin 11.8 g/dL (11.5-15.4)
[2016-07-05] MEDS: Ipratropium/Albuterol Neb 3 ML IH SCH ×4 (05:04→21:53)
[2016-07-05] MEDS ORDERED: Vancomycin 1,250 MG in D5% in Water 250 ML IVPB SCH (06:00)
[2016-07-05] MEDS: Piperacillin/Tazobactam 3.375 GM in D5% in Water (Mini-Bag+) 100 ML IVPB SCH ×3 (06:24→22:57)
[2016-07-05] MEDS: *HR* Heparin 5,000 UNIT/ML VIAL SQ SCH ×2 (06:27→18:39)
[2016-07-05] MEDS ORDERED: Famotidine 20 MG TABLET PO SCH (09:00)
[2016-07-05] MEDS: Cholecalciferol (D-3) 1,000 UNIT TABLET PO SCH (09:09)
[2016-07-05] MEDS: Metoprolol XL (24 HR) Succ 50 MG TAB.ER.24H PO SCH (09:09)
[2016-07-05] MEDS: Cyanocobalamin (B-12) 1,000 MCG TABLET PO SCH (09:09)
[2016-07-05] MEDS: predniSONE 10 MG TABLET PO SCH (09:09)
[2016-07-05] MEDS: Ascorbic Acid 500 MG TABLET PO SCH (09:09)
[2016-07-05] MEDS: Brinzolamide 1% 10 ML BOTTLE BOTH EYES SCH ×4 (09:10→23:05)
[2016-07-05] MEDS: Furosemide 20 MG TABLET PO SCH (09:13)
[2016-07-05] MEDS: Fluticasone Propionate Nasal 50 MCG/SPRAY BOTTLE NS SCH (09:13)
[2016-07-05] MEDS: Ondansetron ODT 4 MG TAB.RAPDIS SL PRN (09:29)
[2016-07-05] MEDS: ALPRAZolam 1 MG TABLET PO PRN ×2 (09:29→20:07)
[2016-07-05] MEDS: *HR* HYDROcodone/Acet 5/325 mg TABLET PO PRN ×3 (09:30→20:08)
--- NOTE | 2016-07-05 10:03 | Electrocardiograph Report ---
[facility] Test Date: 2016-07-04 Pat Name: Conchita Schulte Department: 104 Room: 3B41 Gender: F Superintendent Drivers: [facility] : 1930 Requested By: Davy Dillon Order Number: [id number] Reading MD: Annetta Montesinos Measurements Intervals [place] Rate: 83 P: 30 FL: 159 QRS: 132 QRSD: 155 T: -17 QT: 408 QTc: 448 Interpretive Statements ELECTRONIC ATRIAL PACEMAKER ELECTRONIC VENTRICULAR PACEMAKER ABNORMAL RHYTHM ECG Electronically Signed On 07-05-16 10:01:06 EST by Annetta Montesinos
[2016-07-05] MEDS: Budesonide/Formoterol 160/4.5 MDI IH SCH ×2 (10:57→21:52)
[2016-07-05] MEDS: 0.9 % Sodium Chloride 1,000 ML IVC SCH (11:50)
--- NOTE | 2016-07-05 12:16 | Palliative - Consult Note ---
Date of Encounter: 07/05/16 Time of Encounter: 09:45 - Assessment and Plan (1) Goals of care, counseling/discussion Current Visit: Yes Status: Acute Assessment and plan: Discuss goals of care with the patient and her daughter Enid. Reviewed diagnosis, plan of care, treatment, discharge planning. Patient will likely return home with her 24-hour home care services. Family denies any additional DME needs. We also discussed long-term goals of care and CODE STATUS. Reviewed CODE STATUS options and what each entails. At this time, the patient and her daughter would like her to remain a full code. We will continue to follow up. (2) Functional quadriplegia Current Visit: Yes Status: Acute Assessment and plan: Ms. Schulte has been bed bound for many years. She resides with her daughter and son-in-law with 24 hour caregivers from [facility]. Plan will be to return home and resume care. Reposition frequently to prevent breakdown. (3) Chronic pain Current Visit: Yes Status: Acute Assessment and plan: Ms. Schulte reports generalized chronic pain. She describes it as "aches and pains" all over. She typically takes Percocet every 4 hours at home. Currently , she is on [place] with some improvement. Continue to monitor. Reposition frequently. Qualifiers: Chronic pain type: other chronic pain Qualified Code(s): G89.29 - Other chronic pain Palliative-CN HPI - Data of Consult Patient: new to practice Consult date: 07/05/16 Requesting Physician: Carlos Chapa Primary Care Provider: PCP NO - Consult Narrative Palliative Care/Comfort Measures: Palliative care Reason for consult: Goals of care History of present illness: Ms. Schulte is a 86 year old female presenting to [facility] with altered mental status. Ms. Schulte was recently admitted to [facility] and treated for urinary tract infection. Upon evaluation [place], she was found to have suspected left lower lobe pneumonia with initial UTI. She was admitted for further workup and treatment. She is being treated for healthcare acquired pneumonia as well as urinary tract infection. Cultures pending. The palliative care team has been consulted to assist with goals of care management as the patient has chronic medical conditions and is no for failure to thrive. According to Ms. Schulte's daughter, Enid, she has been bedbound for 2 and half years. She has been evaluated multiple places for the abrupt onset of weakness with no diagnosis found. Her daughter states that she was participating in therapy and had been progressing well, and the following day was unable to move her lower extremities. Once again, she has been evaluated at multiple facilities including the [facility]. Ms. Schulte recently relocated to [place] from [place]. She resides in her home with 24-hour care provided by and home health. She does have home health nurses to visit 2 times a week. Her oxygen is supplied by [employer]. Ms. Schulte's grandson assists with care that requires turning including repositioning and changing soiled sheet. CC: Carlos Chapa Past Med Surg Social Fam HX - Past Medical History Source: patient, old records reviewed Medical history: atrial fibrillation, CHF, COPD, coronary artery disease, hyperlipidemia, hypertension, other (skin cancer) Psychiatric history: depression - Past Surgical History Surgical History: coronary bypass (CABG), pacemaker - Social History Smoking Status: Never smoker Smokeless Tobacco Status: No Alcohol use: none Drug use: none Current living situation: Home (with 24 hour caregivers) Activity Level: Bed bound - Family History Mother Living Status: Age at : 69 Cause of : cva Father Living Status: Age at : 80 Cause of : CVA Medications and Allergies Alprazolam [Xanax 1 MG Tablet] 1 mg PO TID PRN 07/04/16 [History] Ascorbic Acid [Vitamin C] 1,000 mg PO DAILY 07/04/16 [History] Brimonidine Tartrate/Timolol [Combigan Eye Drops] 1 drop BOTH EYES BID 07/04/16 [History] Brinzolamide 1% [Azopt] 1 drop BOTH EYES QID 07/04/16 [History] Candesartan Cilexetil [Atacand] 4 mg PO DAILY 07/04/16 [History] Cholecalciferol (D-3) [Vitamin D] 1,000 unit PO DAILY 07/04/16 [History] Cyanocobalamin (Vitamin B-12) [Vitamin B12] 1,000 mcg PO DAILY 07/04/16 [History ] Cyclosporine [Restasis] 1 each BOTH EYES BID 07/04/16 [History] Docusate [Colace] 100 mg PO BID 07/04/16 [History] Ferrous Sulfate 325 mg PO DAILY 07/04/16 [History] Fluticasone Propionate Nasal [Flonase] 100 mcg NS DAILY 07/04/16 [History] Fluticasone/Salmeterol [Advair 250-50 Diskus] 1 each IH BID 07/04/16 [History] Furosemide [Lasix] 20 mg PO DAILY 07/04/16 [History] Latanoprost [Xalatan] 1 drop BOTH EYES HS 07/04/16 [History] Levalbuterol HCl [Xopenex Neb] 1.25 mg IH QID 07/04/16 [History] Levothyroxine [Synthroid] 100 mcg PO DAILY 07/04/16 [History] Metoprolol XL (24 HR) Succ [Toprol XL] 50 mg PO DAILY 07/04/16 [History] Nitroglycerin 0.3 mg SL Q5MIN PRN 07/04/16 [History] Nystatin/Triamcinolone CRM [Mycolog] 1 appl TP Q48H 07/04/16 [History] Omeprazole/Sodium Bicarbonate [Zegerid 40 mg Capsule] 1 each PO DAILY 07/04/16 [ History] Oxycodone HCl/Acetaminophen [Percocet 10-325 mg Tablet] 1 each PO Q4H PRN [History] Oxygen 2.5 l NS AD 07/04/16 [History] PredniSONE 10 mg PO DAILY 07/04/16 [History] Sertraline [Zoloft] 50 mg PO DAILY 07/04/16 [History] Sodium Chloride for inhalation [Nebusal] 4 ml IH BID 07/04/16 [History] Ubidecarenone [Coenzyme Q10] 200 mg PO DAILY 07/04/16 [History] Vit C/E/Zn/Coppr/Lutein/Zeaxan [Preservision Areds 2 Softgel] 2 cap PO DAILY 06/08 [History] Allergies escitalopram [From Lexapro] Allergy (Verified 07/04/16 15:41) See Comments sulfamethoxazole [From Bactrim] Allergy (Verified 07/04/16 15:41) See Comments trimethoprim [From Bactrim] Allergy (Verified 07/04/16 15:41) See Comments - Constitutional Constitutional ROS PAL: fatigue, no decreased appetite, no weight loss - EENT Eyes: loss of vision Ears: decreased hearing Ears, nose, mouth, throat: no dysphagia, no mouth pain, no sore throat - Cardiovascular Cardiovascular ROS: pedal edema (mild), no chest pain, no chest pain with activity - Respiratory Respiratory: cough, dyspnea on exertion (with activities like turning in bed), no dyspnea, no hemoptysis, no chest congestion, no excessive phlegm production - Gastrointestinal Gastrointestinal: nausea (Chronic), no abdominal pain, no bloating, no constipation, no diarrhea, no vomiting - Genitourinary Palliative ROS female: no dysuria - Musculoskeletal Musculoskeletal ROS IM: back pain (Chronic), muscle weakness (generalized weakness), other (bedbound for years) - Integumentary ROS Integumentary: dry skin, sores Additional comments: dry patchy lesions to extremities and head. - Neurological Neurological ROS: lack of coordination, weakness - Psychiatric Psychiatric general PM: anxiety Palliative Care-Exam - Constitutional Vitals: Temp Pulse Resp BP Pulse Ox 97.5 F L 85 17 94/58 100 07/05/16 10:54 07/05/16 10:54 07/05/16 10:54 07/05/16 10:54 07/05/16 10:54 Exam: 86 year old female appearing chronically ill - Head Additional comments: steri strips intact to right nondenominational area - Eye Eye exam: Present: EOMI - ENT ENT exam: Present: mucous membranes moist - Respiratory Respiratory exam: Present: decreased breath sounds. Absent: accessory muscle use - Cardiovascular Cardiovascular exam: Present: systolic murmur - GI/Abdominal Exam GI/Abdominal exam: Present: normal bowel sounds, soft. Absent: tenderness - Rectal Rectal exam: Present: deferred - Catheter Type: Urethral (Gabriel) - Neurological Exam Neurological exam: Present: alert, oriented X3 - Psychiatric Psychiatric exam: Present: flat affect. Absent: anxious - Skin Additional comments: scaly dry patches noted to extremities and head Internal Medicine - CN: Reslt - Labs CBC & Chem 7: 07/05/16 03:48 07/05/16 03:48 Labs: Short CBC 07/05/16 Range/Units 03:48 WBC 13.1 H (4.3-11.1) K/mcL Hgb 11.8 D (11.5-15.4) g/dL Hct 36.2 (35.3-44.9) % Plt Count 302 (140-400) K/mcL Neutrophils # 8.5 (1.6-8.9) K/mcL BMP 07/05/16 03:48 Sodium 135 L Potassium 3.8 Chloride 88 L Carbon Dioxide 38 H BUN 22 H Creatinine 0.75 Glucose 82 Calcium 9.2 - ABG Interpretation ABG results: ABG ABG pH 7.38 pH Units (7.32-7.45) 07/04/16 16:25 ABG pCO2 79 mmHg (35-45) H* 07/04/16 16:25 ABG pO2 97 mmHg (85-104) 07/04/16 16:25 ABG O2 Saturation 97 % (95-98) 07/04/16 16:25 PT/INR, D-dimer PT 13.0 Seconds (9.4-12.1) H 07/04/16 16:38 Consult Discharge Plan - Plan Referrals: NO,PCP [Primary Care Provider] - Palliative Quality Palliative Quality: Screen for Code Status: Yes, Screen for Goals of Care: Yes, Screen for Pain: Yes, If Pain Regimen Started, Initiate Bowel Regimen: Yes, Screen for Nausea/Vomitting: Yes
--- NOTE | 2016-07-05 18:53 | Internal Med Progress Note ---
Date of Encounter: 07/05/16 Time of Encounter: 18:50 - Assessment and plan (1) Pneumonia Current Visit: Yes Status: Acute Qualifiers: Pneumonia type: due to unspecified organism Laterality: left Lung location: unspecified part of lung Qualified Code(s): J18.9 - Pneumonia, unspecified organism (2) UTI (urinary tract infection) Current Visit: Yes Status: Acute Qualifiers: Urinary tract infection type: site unspecified Hematuria presence: without hematuria Qualified Code(s): N39.0 - Urinary tract infection, site not specified (3) COPD (chronic obstructive pulmonary disease) Current Visit: Yes Status: Acute Qualifiers: COPD type: unspecified COPD Qualified Code(s): J44.9 - Chronic obstructive pulmonary disease, unspecified (4) Functional quadriplegia Current Visit: Yes Status: Acute (5) Hypertension Current Visit: Yes Status: Acute Assessment and plan: continue IV abx, monitor for improvement follow blood cultures, urine cultures negative continue synthroid continue oral lasix monitor BP, continue toprol xl and prn hydralazine. palliative team consulted on admission. PT/OT assessment. Qualifiers: Hypertension type: essential hypertension Qualified Code(s): I10 - Essential (primary) hypertension - Subjective Interval history: Pt seen laying in bed, complains of mild respiratory congestion, reports some improvement. - Constitutional Vitals: Temp Pulse Resp BP Pulse Ox 97.8 F 92 18 155/82 98 07/05/16 15:40 07/05/16 15:40 07/05/16 16:35 07/05/16 15:40 07/05/16 16:35 General appearance: Present: A&O X 2, no acute distress - Head Head exam: Present: atraumatic, normocephalic - Eye Eye exam: Present: PERRL, conjuntiva pink, sclera anicteric Pupils: Present: PERRL - Neck Neck exam general surgery: Present: supple, trachea midline. Absent: lymphadenopathy - Respiratory Respiratory exam: Present: decreased breath sounds, CTAB, rhonchi. Absent: accessory muscle use, rales, wheezes - Cardiovascular Cardiovascular exam: Present: RRR, +S1, +S2. Absent: diastolic murmur, gallop, rubs, systolic murmur - GI/Abdominal GI/Abdominal exam: Present: normal bowel sounds, soft, no peritoneal signs. Absent: distended, tenderness - Extremities Exam Extremities exam: Present: warm, radial pulses palpable and symetrical. Absent : calf tenderness, cyanotic, pedal edema - Skin Skin exam: Present: dry, intact Additional comments: multiple chronic looking scaly raised lesions in the LE bilaterally. Internal Medicine: Result - Labs CBC & Chem 7: 07/05/16 03:48 07/05/16 03:48 Labs: Short CBC 07/05/16 Range/Units 03:48 WBC 13.1 H (4.3-11.1) K/mcL Hgb 11.8 D (11.5-15.4) g/dL Hct 36.2 (35.3-44.9) % Plt Count 302 (140-400) K/mcL Neutrophils # 8.5 (1.6-8.9) K/mcL BMP 07/05/16 03:48 Sodium 135 L Potassium 3.8 Chloride 88 L Carbon Dioxide 38 H BUN 22 H Creatinine 0.75 Glucose 82 Calcium 9.2 - ABG Interpretation ABG results: ABG ABG pH 7.38 pH Units (7.32-7.45) 07/04/16 16:25 ABG pCO2 79 mmHg (35-45) H* 07/04/16 16:25 ABG pO2 97 mmHg (85-104) 07/04/16 16:25 ABG O2 Saturation 97 % (95-98) 07/04/16 16:25 PT/INR, D-dimer PT 13.0 Seconds (9.4-12.1) H 07/04/16 16:38 Consult Discharge Plan - Plan Referrals: NO,PCP [Primary Care Provider] -
[2016-07-05] MEDS: Famotidine 20 MG TABLET PO SCH (20:08)
[2016-07-05] MEDS: Latanoprost 2.5 ML BOTTLE BOTH EYES SCH (20:09)
[2016-07-05] MEDS: Silvasorb 44.4 ML TUBE TP SCH (20:12)
[2016-07-06] MEDS ORDERED: *HR* Morphine 2 MG/ML SYRINGE IVP ONE (00:54)
[2016-07-06] MEDS: Sennosides 8.6 MG TABLET PO SCH ×3 (01:09→23:33)
[2016-07-06] MEDS: Vancomycin 1,250 MG in D5% in Water 250 ML IVPB SCH (01:12)
[2016-07-06] MEDS: Ondansetron ODT 4 MG TAB.RAPDIS SL PRN (02:05)
[2016-07-06] MEDS: ALPRAZolam 1 MG TABLET PO PRN (02:54)
[2016-07-06 03:26] LABS: Basophils # 0.1 K/mcL (0.0-0.2); Basophils % 0.4 %; Eosinophils % 0.2 %; Hematocrit 35.1 % (35.3-44.9); Hemoglobin 11.4 g/dL (11.5-15.4); Immature Granulocytes % 1.7 % (0-4); Lymphocytes # 2.3 K/mcL (0.6-4.6); Lymphocytes % 17.8 %; Mean Corpuscular HGB Conc 32.5 g/dL (31.6-35.5); Mean Corpuscular Hemoglobin 31.1 pg (28.0-33.3); Mean Corpuscular Volume 95.6 fL (83.0-100.0); Mean Platelet Volume 9.5 fL (9.4-12.4); Monocytes # 0.7 K/mcL (0.0-1.3); Monocytes % 5.2 %; Neutrophils # 9.8 K/mcL (1.6-8.9); Platelet Count 321 K/mcL (140-400); Red Blood Count 3.67 M/mcL (3.82-4.97); Red Cell Distribution Width 14.1 % (11.5-14.5); Segmented Neutrophils % 74.7 %
[2016-07-06 03:33] LABS: BUN/Creatinine Ratio 26 (6-26); Blood Urea Nitrogen 21 mg/dL (7-20); Calcium 8.9 mg/dL (8.6-10.8); Carbon Dioxide 38 mEq/L (19-29); Chloride 89 mEq/L (98-109); Glucose 128 mg/dL (70-99); Osmolality,Calculated 281 (280-300); Potassium 3.5 mEq/L (3.5-4.5); Sodium 133 mEq/L (136-145); eGFR For African Americans > 60 (> 60); eGFR For Non-African Americans > 60 (> 60)
[2016-07-06] MEDS: Ipratropium/Albuterol Neb 3 ML IH SCH ×4 (05:00→23:09)
[2016-07-06] MEDS: Piperacillin/Tazobactam 3.375 GM in D5% in Water (Mini-Bag+) 100 ML IVPB SCH ×3 (06:43→23:32)
[2016-07-06] MEDS: *HR* HYDROcodone/Acet 5/325 mg TABLET PO PRN ×4 (06:43→23:33)
[2016-07-06] MEDS: *HR* Heparin 5,000 UNIT/ML VIAL SQ SCH ×2 (06:46→18:20)
--- NOTE | 2016-07-06 09:48 | Internal Med Progress Note ---
Date of Encounter: 07/06/16 Time of Encounter: 09:25 - Assessment and plan (1) Physical deconditioning Current Visit: Yes Status: Acute Assessment and plan: Physical therapy. up to chair as tolerated , Add SSRI for depression and cut back on Xanax (2) Malnutrition of moderate degree Current Visit: Yes Status: Acute Assessment and plan: We will add appetite stimulant ,nutritional supplement with meal, consult dietary (3) Depression Current Visit: Yes Status: Acute Qualifiers: Depression Type: unspecified Qualified Code(s): F32.9 - Major depressive disorder, single episode, unspecified (4) COPD (chronic obstructive pulmonary disease) Current Visit: Yes Status: Acute Assessment and plan: Increase aerosol treatment to every 4 hour ,add Mucinex. Check MRSA screening , considers to stepdown on antibiotics . If persistent pneumonia we will consider swallow evaluation Qualifiers: COPD type: unspecified COPD Qualified Code(s): J44.9 - Chronic obstructive pulmonary disease, unspecified (5) Hypertension Current Visit: Yes Status: Acute Assessment and plan: Continue toprol xl and prn hydralazine. Qualifiers: Hypertension type: essential hypertension Qualified Code(s): I10 - Essential (primary) hypertension (6) Congestive heart failure (CHF) Current Visit: Yes Status: Acute Assessment and plan: Check cardiac echo, check BNP ,check chest x-ray Qualifiers: Congestive heart failure type: unspecified congestive heart failure type Congestive heart failure chronicity: unspecified congestive heart failure chronicity Qualified Code(s): I50.9 - Heart failure, unspecified (7) Constipation Current Visit: Yes Status: Acute Assessment and plan: Add colace Mirlax . Senna 1 tablet DAILY Qualifiers: Constipation type: slow transit constipation Qualified Code(s): K59.01 - Slow transit constipation - Subjective Interval history: Patient is complaining of generalized fatigue tiredness. Patient sustained I am not feeling will. She is saying she had trouble breathing occasionally. Does not know what is wrong with her - Constitutional Vitals: Temp Pulse Resp BP Pulse Ox 98.3 F 94 15 133/80 95 07/06/16 06:52 07/06/16 06:52 07/06/16 06:52 07/06/16 06:52 07/06/16 06:52 General appearance: Present: cooperative, no acute distress, answers questions appropriately - Respiratory Respiratory exam: Present: decreased breath sounds, prolonged expiratory phase ( Markedly diminished breathing sounds bilaterally, patient is taking very shallow breaths). Absent: accessory muscle use, rales, rhonchi, wheezes - Cardiovascular Cardiovascular exam: Present: RRR, +S1, +S2. Absent: diastolic murmur, gallop, rubs, systolic murmur - GI/Abdominal GI/Abdominal exam: Present: normal bowel sounds, soft, tenderness (Mild diffuse abdominal tenderness), no peritoneal signs. Absent: distended - Extremities Exam Extremities exam: Present: warm, radial pulses palpable and symetrical. Absent : calf tenderness, cyanotic, pedal edema - Skin Skin exam: Present: dry, intact Internal Medicine: Result - Labs CBC & Chem 7: 07/06/16 03:00 07/06/16 03:00 Labs: Short CBC 07/06/16 Range/Units 03:00 WBC 13.1 H (4.3-11.1) K/mcL Hgb 11.4 L (11.5-15.4) g/dL Hct 35.1 L (35.3-44.9) % Plt Count 321 (140-400) K/mcL Neutrophils # 9.8 H (1.6-8.9) K/mcL BMP 07/06/16 03:00 Sodium 133 L Potassium 3.5 Chloride 89 L Carbon Dioxide 38 H BUN 21 H Creatinine 0.82 Glucose 128 H Calcium 8.9 - ABG Interpretation ABG results: ABG ABG pH 7.38 pH Units (7.32-7.45) 07/04/16 16:25 ABG pCO2 79 mmHg (35-45) H* 07/04/16 16:25 ABG pO2 97 mmHg (85-104) 07/04/16 16:25 ABG O2 Saturation 97 % (95-98) 07/04/16 16:25 PT/INR, D-dimer PT 13.0 Seconds (9.4-12.1) H 07/04/16 16:38 Consult Discharge Plan - Plan Referrals: NO,PCP [Primary Care Provider] -
[2016-07-06] MEDS: Metoprolol XL (24 HR) Succ 50 MG TAB.ER.24H PO SCH (10:49)
[2016-07-06] MEDS: Cholecalciferol (D-3) 1,000 UNIT TABLET PO SCH (10:49)
[2016-07-06] MEDS: predniSONE 10 MG TABLET PO SCH (10:49)
[2016-07-06] MEDS: Famotidine 20 MG TABLET PO SCH ×2 (10:49→23:33)
[2016-07-06] MEDS: Furosemide 20 MG TABLET PO SCH (10:49)
[2016-07-06] MEDS: Cyanocobalamin (B-12) 1,000 MCG TABLET PO SCH (10:49)
[2016-07-06] MEDS: Ascorbic Acid 500 MG TABLET PO SCH (10:49)
[2016-07-06] MEDS: Thiamine (B-1) 100 MG TABLET PO SCH (10:50)
[2016-07-06] MEDS: Silvasorb 44.4 ML TUBE TP SCH (10:50)
[2016-07-06] MEDS: Fluticasone Propionate Nasal 50 MCG/SPRAY BOTTLE NS SCH (10:51)
[2016-07-06] MEDS: Albuterol 2.5 MG/3 ML NEBULIZER IH SCH ×4 (11:11→23:10)
[2016-07-06] MEDS: Budesonide/Formoterol 160/4.5 MDI IH SCH ×2 (11:12→23:09)
[2016-07-06] MEDS: Brinzolamide 1% 10 ML BOTTLE BOTH EYES SCH ×4 (11:38→23:28)
--- NOTE | 2016-07-06 14:38 | ECHO - Doppler Report ---
Echocardiogram Name: Conchita Schulte Date of Study: 07/06/2016 Date: 1930 Ht: 63.0 in Medical Record#: [id number] Age: 86 Wt: 153.0 lb Gender: Female BSA: 1.73 Order #: [id number] Location: [facility] Room #: [id number] Reading Physician: Lucio Jorgensen MD, [facility] Shiftman: Clary Sánchez RDCS, T Ordering Physician: Maxine Novak MD Primary Physician: None Indications: Congestive heart failure Impressions: LVEF 25-30%. No pulmonary hypertension. Severe global left ventricular systolic dysfunction. No severe valvular dysfunction. Left Ventricular Wall Motion: Rest Echo Findings The apex, apical inferior, mid inferior, basal inferior, apical anterior, mid anterior, basal anterior, apical septal, mid inferior septal, basal inferior septal, apical lateral, mid anterior lateral, basal anterior lateral, mid anterior septal, mid inferior lateral, basal anterior septal and basal inferior lateral cardenas were hypokinetic. Findings: Study Quality * Technically adequate exam. Left Atrium * Normal left atrial size. Right Atrium * Normal right atrial size. Aorta * Normally sized aortic root. * calcified Mitral Valve * No mitral stenosis. * Mildly calcified mitral valve leaflets. * Mild mitral regurgitation. Tricuspid Valve * Mild-moderate tricuspid regurgitation. * Estimated RVSP is 33 mmHg. * Estimated RA pressure is 3-5 mmHg. * No pulmonary hypertension. Pulmonic Valve * Pulmonic valve is not well visualized. * No pulmonic stenosis. * No pulmonic regurgitation. Pericardium * There is a trivial pericardial effusion present. ECG Findings * Atrial fibrillation. Left Ventricle * Indeterminate diastolic function. * LVEF 25-30%. * Severe global left ventricular systolic dysfunction. Aortic Valve * Mildly calcified aortic valve leaflets. * Mild aortic regurgitation. * Mildly sclerotic aortic valve leaflets. IVC * Normal IVC dimensions and inspiratory collapse. Interatrial Septum * Interatrial septum not well evaluated. Right Ventricle * not well visualized History Hypertension Hypercholesteremia History of CAD/PTCA Coronary Artery Bypass Graft Congestive Heart Failure Pacer/ICD Implant Measurements: BP: 135/ 82 2D Normal Values RVIDd: 3.87 cm <2.7 cm IVSd: .95 cm 0.6 - 1.0 cm LVIDd: 5.69 cm 3.7 - 5.6 cm LVPWd: .98 cm 0.6 - 1.1 cm LVIDs: 5.00 cm 1.5 - 3.6 cm AO: 2.20 cm < 4.0 cm LA: 4.50 cm 2.0 - 4.0cm %FS: 12.10 cm >25 % LA volume: 71 Mitral Valve Peak E:1.20 m/sec Peak E' Lat Reji:9.36 cm/s Peak E' Med Reji:8.49 cm/s E/E' Lat Ratio:12.8 E/E' Med Ratio:14.1 Aortic Valve Pressure 1/2 time:476.00 msec AI pressure Half-time: 476.00 msec Tricuspid Valve TV Regurg Peak Grad: 32.00mmHg TV Regurg Peak Reji: 2.84m/sec Updated by Lucio Jorgensen MD, [facility] on 07/06/2016 2:32:43 PM electronically signed on 07/06/2016 2:32:59 PM with status of Final Wall Motion Hopkins: 1=Normal, 2=Hypokinesis, 3=Akinesis, 4=Dyskinesis, 5=Aneurysmal, 6=Hyperkinetic, X=Not Visualized (Blank)=Missing
[2016-07-06] MEDS: ALPRAZolam 0.5 MG TABLET PO PRN (14:49)
[2016-07-06] MEDS ORDERED: Benzonatate 100 MG CAPSULE PO PRN (20:17)
[2016-07-06] MEDS: Latanoprost 2.5 ML BOTTLE BOTH EYES SCH (23:28)
[2016-07-06] MEDS: Menthol 9.1 MG LOZENGE PO PRN (23:31)
[2016-07-06] MEDS: Mirtazapine 15 MG TABLET PO SCH (23:32)
[2016-07-07] MEDS: ALPRAZolam 0.5 MG TABLET PO PRN ×2 (02:17→11:03)
[2016-07-07] MEDS: Albuterol 2.5 MG/3 ML NEBULIZER IH SCH ×5 (04:46→23:37)
[2016-07-07] MEDS: Ipratropium/Albuterol Neb 3 ML IH SCH ×5 (04:47→23:34)
[2016-07-07 06:13] LABS: Basophils # 0.1 K/mcL (0.0-0.2); Basophils % 0.6 %; Eosinophils # 0.1 K/mcL (0.0-0.6); Eosinophils % 1.2 %; Hematocrit 32.5 % (35.3-44.9); Hemoglobin 10.7 g/dL (11.5-15.4); Immature Granulocytes % 1.8 % (0-4); Lymphocytes # 2.2 K/mcL (0.6-4.6); Lymphocytes % 23.1 %; Mean Corpuscular HGB Conc 32.9 g/dL (31.6-35.5); Mean Corpuscular Hemoglobin 31.1 pg (28.0-33.3); Mean Corpuscular Volume 94.5 fL (83.0-100.0); Mean Platelet Volume 9.6 fL (9.4-12.4); Monocytes # 0.6 K/mcL (0.0-1.3); Monocytes % 5.8 %; Neutrophils # 6.5 K/mcL (1.6-8.9); Platelet Count 266 K/mcL (140-400); Red Blood Count 3.44 M/mcL (3.82-4.97); Red Cell Distribution Width 14.2 % (11.5-14.5); Segmented Neutrophils % 67.5 %
[2016-07-07] MEDS: Piperacillin/Tazobactam 3.375 GM in D5% in Water (Mini-Bag+) 100 ML IVPB SCH ×3 (06:21→22:45)
[2016-07-07] MEDS: *HR* Heparin 5,000 UNIT/ML VIAL SQ SCH ×2 (06:21→16:49)
[2016-07-07 06:24] LABS: BUN/Creatinine Ratio 23 (6-26); Blood Urea Nitrogen 18 mg/dL (7-20); Calcium 8.6 mg/dL (8.6-10.8); Carbon Dioxide 38 mEq/L (19-29); Chloride 91 mEq/L (98-109); Glucose 87 mg/dL (70-99); Osmolality,Calculated 283 (280-300); Potassium 3.1 mEq/L (3.5-4.5); Sodium 136 mEq/L (136-145); eGFR For African Americans > 60 (> 60); eGFR For Non-African Americans > 60 (> 60)
[2016-07-07] MEDS ORDERED: Aminoglycoside Consult 1 EACH MC ONE (07:50)
[2016-07-07] MEDS: Brinzolamide 1% 10 ML BOTTLE BOTH EYES SCH ×4 (08:03→21:39)
[2016-07-07] MEDS: *HR* HYDROcodone/Acet 5/325 mg TABLET PO PRN ×3 (08:09→21:36)
[2016-07-07] MEDS: Cyanocobalamin (B-12) 1,000 MCG TABLET PO SCH (08:09)
[2016-07-07] MEDS: Ascorbic Acid 500 MG TABLET PO SCH (08:10)
[2016-07-07] MEDS: Furosemide 20 MG TABLET PO SCH (08:10)
[2016-07-07] MEDS: Thiamine (B-1) 100 MG TABLET PO SCH (08:10)
[2016-07-07] MEDS: Sennosides 8.6 MG TABLET PO SCH (08:10)
[2016-07-07] MEDS: Metoprolol XL (24 HR) Succ 50 MG TAB.ER.24H PO SCH (08:10)
[2016-07-07] MEDS: Cholecalciferol (D-3) 1,000 UNIT TABLET PO SCH (08:10)
[2016-07-07] MEDS: Famotidine 20 MG TABLET PO SCH ×2 (08:11→21:37)
[2016-07-07] MEDS: Fluticasone Propionate Nasal 50 MCG/SPRAY BOTTLE NS SCH (08:11)
[2016-07-07] MEDS: predniSONE 10 MG TABLET PO SCH (08:11)
[2016-07-07] MEDS: Silvasorb 44.4 ML TUBE TP SCH (08:12)
[2016-07-07] MEDS ORDERED: Vancomycin 1,000 MG in D5% in Water 250 ML IVPB SCH (09:00)
[2016-07-07] MEDS: Budesonide/Formoterol 160/4.5 MDI IH SCH ×2 (11:22→23:34)
[2016-07-07] MEDS ORDERED: Potassium Citrate 10 MEQ TABLET.ER PO ONE (12:54)
[2016-07-07] MEDS ORDERED: Furosemide 20 MG/2 ML VIAL IVP SCH (13:00)
--- NOTE | 2016-07-07 14:22 | Cardiology Consult Note ---
Date of Encounter: 07/07/16 Time of Encounter: 14:21 Assessment and Plan (1) Altered mental status Current Visit: Yes Status: Acute Suspect this will improve with treatment of her infection. Watch for now. . Qualifiers: Altered mental status type: unspecified Qualified Code(s): R41.82 - Altered mental status, unspecified (2) Congestive heart failure (CHF) Current Visit: Yes Status: Acute Severe LV systolic dysfunciton with unknown baseline Will need to watch volume status closely - not grossly overloaded today. No immediate procedures planned Supportive care. Qualifiers: Congestive heart failure type: unspecified congestive heart failure type Congestive heart failure chronicity: unspecified congestive heart failure chronicity Qualified Code(s): I50.9 - Heart failure, unspecified (3) Physical deconditioning Current Visit: Yes Status: Acute (4) Pneumonia Current Visit: Yes Status: Acute Abx Per others Qualifiers: Pneumonia type: due to unspecified organism Laterality: left Lung location: unspecified part of lung Qualified Code(s): J18.9 - Pneumonia, unspecified organism History of Present Illness Consult date: 07/07/16 Requesting physician: Maxine Novak Consult reason: chf Chief complaint: MS changes History of present illness: Ms. Schulte is a 86 year old female with extensive CV history including CAD - S/ p CABG, Afib, h/o PPM implantation - previously followed by [facility] - present with mental status changes. Ultimately evaluated in the ER - with findings c/w PNA. Work up while admitted includes an Echo showeing severe LV sysytolic dysfunction prompting consult. Patient unable to give much useful history today. Reports that she was previously treated at the [facility]. Reports no khang chest pain, and requested Xanax a few times while trying get a history today. No focal complaints could be identified on several attempts. Past Med Surg Social Fam HX - Past Medical History Medical history: atrial fibrillation, CHF, COPD, coronary artery disease, hyperlipidemia, hypertension, other (skin cancer) Psychiatric history: depression - Past Surgical History Surgical History: coronary bypass (CABG), pacemaker - Social History Smoking Status: Never smoker Smokeless Tobacco Status: No Alcohol use: none Drug use: none - Family History Mother Living Status: Age at : 69 Cause of : cva Father Living Status: Age at : 80 Cause of : CVA Medications and Allergies Alprazolam [Xanax 1 MG Tablet] 1 mg PO TID PRN 07/04/16 [History] Ascorbic Acid [Vitamin C] 1,000 mg PO DAILY 07/04/16 [History] Brimonidine Tartrate/Timolol [Combigan Eye Drops] 1 drop BOTH EYES BID 07/04/16 [History] Brinzolamide 1% [Azopt] 1 drop BOTH EYES QID 07/04/16 [History] Candesartan Cilexetil [Atacand] 4 mg PO DAILY 07/04/16 [History] Cholecalciferol (D-3) [Vitamin D] 1,000 unit PO DAILY 07/04/16 [History] Cyanocobalamin (Vitamin B-12) [Vitamin B12] 1,000 mcg PO DAILY 07/04/16 [History ] Cyclosporine [Restasis] 1 each BOTH EYES BID 07/04/16 [History] Docusate [Colace] 100 mg PO BID 07/04/16 [History] Ferrous Sulfate 325 mg PO DAILY 07/04/16 [History] Fluticasone Propionate Nasal [Flonase] 100 mcg NS DAILY 07/04/16 [History] Fluticasone/Salmeterol [Advair 250-50 Diskus] 1 each IH BID 07/04/16 [History] Furosemide [Lasix] 20 mg PO DAILY 07/04/16 [History] Latanoprost [Xalatan] 1 drop BOTH EYES HS 07/04/16 [History] Levalbuterol HCl [Xopenex Neb] 1.25 mg IH QID 07/04/16 [History] Levothyroxine [Synthroid] 100 mcg PO DAILY 07/04/16 [History] Metoprolol XL (24 HR) Succ [Toprol XL] 50 mg PO DAILY 07/04/16 [History] Nitroglycerin 0.3 mg SL Q5MIN PRN 07/04/16 [History] Nystatin/Triamcinolone CRM [Mycolog] 1 appl TP Q48H 07/04/16 [History] Omeprazole/Sodium Bicarbonate [Zegerid 40 mg Capsule] 1 each PO DAILY 07/04/16 [ History] Oxycodone HCl/Acetaminophen [Percocet 10-325 mg Tablet] 1 each PO Q4H PRN [History] Oxygen 2.5 l NS AD 07/04/16 [History] PredniSONE 10 mg PO DAILY 07/04/16 [History] Sertraline [Zoloft] 50 mg PO DAILY 07/04/16 [History] Sodium Chloride for inhalation [Nebusal] 4 ml IH BID 07/04/16 [History] Ubidecarenone [Coenzyme Q10] 200 mg PO DAILY 07/04/16 [History] Vit C/E/Zn/Coppr/Lutein/Zeaxan [Preservision Areds 2 Softgel] 2 cap PO DAILY 06/08 [History] Allergies escitalopram [From Lexapro] Allergy (Verified 07/04/16 15:41) See Comments sulfamethoxazole [From Bactrim] Allergy (Verified 07/04/16 15:41) See Comments trimethoprim [From Bactrim] Allergy (Verified 07/04/16 15:41) See Comments ROS unobtainable: due to mental status All Systems Review: A 10-system review of systems was performed and is negative for pertinent findings except as documented above in the HPI. Physical Examination Vital Signs, Last 4 Hours Temp Pulse Resp BP Pulse Ox 07/07/16 11:15 98.6 F 79 17 112/68 96 General: Conversant, Other (poor visual acutiy) HEENT: Atraumatic, Normocephaly Neck: No JVD Cardiac: Normal S1 and S2, Other (Sys ,murmur at apex) Lungs: Other (Fair air movement - slightly decreased at bases) Neuro: Alert and responsive, Other (moves extremities spontaneoulsy) Abdomen: Soft, Non-Tender Skin: No rashes noted on visualized skin, Other (multiple areas of bandages and skin tears. ) Musculoskeletal: No Chest Wall Tenderness Extremities: No Clubbing, No Edema Results 07/07/16 05:26 07/07/16 05:26 Lab Results 07/07/16 07/07/16 05:26 05:26 WBC 9.7 Hgb 10.7 L Hct 32.5 L Plt Count 266 Sodium 136 Potassium 3.1 L Chloride 91 L Carbon Dioxide 38 H BUN 18 Creatinine 0.78 Glucose 87 Calcium 8.6 - Imaging and Cardiology Chest Xray: report reviewed, image reviewed Echo: report reviewed, image reviewed (Echo EF - ~ 25%, mild ot moderate MR, mild Ao Regurg) - EKG Interpretation EKG results cardiology: personally reviewed, ventricular paced rhythm Consult Discharge Plan - Plan Referrals: NO,PCP [Primary Care Provider] -
--- NOTE | 2016-07-07 16:29 | Palliative Progress Note ---
Date of Encounter: 07/07/16 Time of Encounter: 14:00 - Assessment and plan (1) Goals of care, counseling/discussion Current Visit: Yes Status: Acute (2) Functional quadriplegia Current Visit: Yes Status: Acute Assessment and plan: At baseline (3) Chronic pain Current Visit: Yes Status: Acute Assessment and plan: [place] every 4 hours as needed. She has used 2 doses today. Continue to monitor. Family reports possible over use of pain medications at home. Ms. Schulte has become sedated in the past from taking too much pain medication. Will continue to monitor. Qualifiers: Chronic pain type: other chronic pain Qualified Code(s): G89.29 - Other chronic pain (4) Constipation Current Visit: Yes Status: Acute Assessment and plan: Ms. Lorenzos contipation has resolved following manual disimpaction yesterday. She is now having loose stools secondary to her laxatives. Will discontinue Senna. Qualifiers: Constipation type: slow transit constipation Qualified Code(s): K59.01 - Slow transit constipation - Time Spent With Patient Total time spent is greater than 50% in coordination of care (as documented) at patient's floor/unit and/or counseling patient: - Subjective Interval history: Ms. Schulte is lying on her side. She reports increased anxiety today and requested Xanax multiple times during exam. She reports frequent BMs following manual disimpaction yesterday. She reports pain 9/10 to her buttock and rectum related to skin ulcerations. - Constitutional Vitals: Abnormal lab results RBC 3.44 M/mcL (3.82-4.97) L 07/07/16 05:26 Hgb 10.7 g/dL (11.5-15.4) L 07/07/16 05:26 Hct 32.5 % (35.3-44.9) L 07/07/16 05:26 PT 13.0 Seconds (9.4-12.1) H 07/04/16 16:38 ABG pCO2 79 mmHg (35-45) H* 07/04/16 16:25 ABG HCO3 46.7 mEQ/L (21-27) H 07/04/16 16:25 ABG Total CO2 49.1 mEq/L (20-26) H 07/04/16 16:25 ABG Base Excess 16.3 mEq/L (-2.0 to 3.0) H 07/04/16 16:25 Potassium 3.1 mEq/L (3.5-4.5) L 07/07/16 05:26 Chloride 91 mEq/L (98-109) L 07/07/16 05:26 Carbon Dioxide 38 mEq/L (19-29) H 07/07/16 05:26 Alkaline Phosphatase 172 Units/L (38-126) H 07/04/16 16:38 Ammonia 13 mcmol/L (18-72) L 07/04/16 16:38 Albumin 2.1 g/dL (3.5-5.0) L 07/06/16 18:12 Globulin 4.2 g/dL (2.4-3.5) H 07/04/16 16:38 Albumin/Globulin Ratio 0.5 (1.1-2.2) L 07/04/16 16:38 Vitamin B12 > 2000 pg/mL (213-816) H 07/06/16 18:12 Urine Clarity Cloudy (Clear) A 07/04/16 18:52 Ur Leukocyte Esterase Large (Negative) H 07/04/16 18:52 Urine Microscopic WBC TNTC per hpf (0-3) H 07/04/16 18:52 Urine Yeast Moderate per hpf (None Seen) H 07/04/16 18:52 Ur Culture Indicated? YES (NO) A 07/04/16 18:52 Vancomycin Trough 22.3 mcg/mL (10-20) H* 07/07/16 00:00 General appearance: Present: cooperative, no acute distress Exam: 86 year old female appearing chronically ill. - ENT ENT exam: Present: mucous membranes dry - Respiratory Respiratory exam: Present: decreased breath sounds. Absent: accessory muscle use, respiratory distress, rhonchi Additional comments: occasional moist cough - Cardiovascular Cardiovascular exam: Present: RRR - GI/Abdominal GI/Abdominal exam: Present: normal bowel sounds, soft. Absent: tenderness - Rectal Rectal exam: Present: hemorrhoids, tenderness - Extremities Exam Extremities exam: Present: pedal edema - Neurological Exam Neurological exam: Present: alert, no focal deficits (generalized weakness x4 extremities) - Psychiatric Psychiatric exam: Present: anxious - Skin Skin exam: Present: warm Additional comments: multiple areas of actinic keratosis, steri strips intact to oriental orthodox, open wound noted to buttocks, dressing intact to left thigh Palliative Quality Palliative Quality: Screen for Code Status: Yes, Screen for Goals of Care: Yes, Screen for Pain: Yes, If Pain Regimen Started, Initiate Bowel Regimen: Yes, Screen for Nausea/Vomitting: Yes - Labs CBC & Chem 7: 07/07/16 05:26 07/07/16 05:26 Labs: Laboratory Results - last 24 hr 07/06/16 07/06/16 07/07/16 18:12 18:12 00:00 WBC RBC Hgb Hct MCV MCH MCHC RDW Plt Count MPV Immature Gran % Seg Neutrophils % Lymphocytes % Monocytes % Eosinophils % Basophils % Neutrophils # Lymphocytes # Monocytes # Eosinophils # Basophils # Sodium Potassium Chloride Carbon Dioxide BUN Creatinine Est GFR ( Amer) Est GFR (Non-Af Amer) BUN/Creatinine Ratio Glucose Calculated Osmolality Calcium Albumin 2.1 L Vitamin B12 > 2000 H Vancomycin Trough 22.3 H* 07/07/16 07/07/16 05:26 05:26 WBC 9.7 RBC 3.44 L Hgb 10.7 L Hct 32.5 L MCV 94.5 MCH 31.1 MCHC 32.9 RDW 14.2 Plt Count 266 MPV 9.6 Immature Gran % 1.8 Seg Neutrophils % 67.5 Lymphocytes % 23.1 Monocytes % 5.8 Eosinophils % 1.2 Basophils % 0.6 Neutrophils # 6.5 Lymphocytes # 2.2 Monocytes # 0.6 Eosinophils # 0.1 Basophils # 0.1 Sodium 136 Potassium 3.1 L Chloride 91 L Carbon Dioxide 38 H BUN 18 Creatinine 0.78 Est GFR ( Amer) > 60 Est GFR (Non-Af Amer) > 60 BUN/Creatinine Ratio 23 Glucose 87 Calculated Osmolality 283 Calcium 8.6 Albumin Vitamin B12 Vancomycin Trough - ABG Interpretation ABG results: ABG ABG pH 7.38 pH Units (7.32-7.45) 07/04/16 16:25 ABG pCO2 79 mmHg (35-45) H* 07/04/16 16:25 ABG pO2 97 mmHg (85-104) 07/04/16 16:25 ABG O2 Saturation 97 % (95-98) 07/04/16 16:25 PT/INR, D-dimer PT 13.0 Seconds (9.4-12.1) H 07/04/16 16:38 Consult Discharge Plan - Plan Referrals: NO,PCP [Primary Care Provider] -
--- NOTE | 2016-07-07 17:57 | Internal Med Progress Note ---
Date of Encounter: 07/07/16 Time of Encounter: 17:57 - Assessment and plan (1) Physical deconditioning Current Visit: Yes Status: Acute Assessment and plan: I had Prolonged discussion with family about high dose of Xanax risk and benefit family agreeable to wean her off from Xanax will add BuSpar as augmenting agent for SSRI (2) Malnutrition of moderate degree Current Visit: Yes Status: Acute Assessment and plan: Counseling patient and family about malnutrition and risk of third spacing (3) Depression Current Visit: Yes Status: Acute Qualifiers: Depression Type: unspecified Qualified Code(s): F32.9 - Major depressive disorder, single episode, unspecified (4) COPD (chronic obstructive pulmonary disease) Current Visit: Yes Status: Acute Assessment and plan: Chest X ray reviewed , will step down on antibiotics Qualifiers: COPD type: unspecified COPD Qualified Code(s): J44.9 - Chronic obstructive pulmonary disease, unspecified (5) Hypertension Current Visit: Yes Status: Acute Qualifiers: Hypertension type: essential hypertension Qualified Code(s): I10 - Essential (primary) hypertension (6) Congestive heart failure (CHF) Current Visit: Yes Status: Acute Assessment and plan: With her third spacing , will add albumin with her lasix tonight Qualifiers: Congestive heart failure type: unspecified congestive heart failure type Congestive heart failure chronicity: unspecified congestive heart failure chronicity Qualified Code(s): I50.9 - Heart failure, unspecified (7) Constipation Current Visit: Yes Status: Acute Assessment and plan: Resolved Qualifiers: Constipation type: slow transit constipation Qualified Code(s): K59.01 - Slow transit constipation (8) Hypokalemia Current Visit: Yes Status: Acute Assessment and plan: Replace , Recheck next AM - Subjective Interval history: Patient is complaining of sob, She is feeling anxious, after taking xanax patient is so sleepy , Low oral intake - Constitutional Vitals: Temp Pulse Resp BP Pulse Ox 98.3 F 96 15 151/78 95 07/07/16 14:47 07/07/16 14:47 07/07/16 14:47 07/07/16 14:47 07/07/16 14:47 General appearance: Present: cooperative, mild distress - Respiratory Respiratory exam: Present: decreased breath sounds, prolonged expiratory phase. Absent: rales, rhonchi, wheezes - Cardiovascular Cardiovascular exam: Present: RRR, +S1, +S2, systolic murmur. Absent: diastolic murmur, gallop, rubs - GI/Abdominal GI/Abdominal exam: Present: normal bowel sounds, soft, no peritoneal signs. Absent: distended, tenderness - Extremities Exam Extremities exam: Present: warm, radial pulses palpable and symetrical. Absent : calf tenderness, cyanotic, pedal edema Internal Medicine: Result - Labs CBC & Chem 7: 07/07/16 05:26 07/07/16 05:26 Labs: Short CBC 07/07/16 Range/Units 05:26 WBC 9.7 (4.3-11.1) K/mcL Hgb 10.7 L (11.5-15.4) g/dL Hct 32.5 L (35.3-44.9) % Plt Count 266 (140-400) K/mcL Neutrophils # 6.5 (1.6-8.9) K/mcL BMP 07/07/16 05:26 Sodium 136 Potassium 3.1 L Chloride 91 L Carbon Dioxide 38 H BUN 18 Creatinine 0.78 Glucose 87 Calcium 8.6 Liver Function 07/06/16 Range/Units 18:12 Albumin 2.1 L (3.5-5.0) g/dL - ABG Interpretation ABG results: ABG ABG pH 7.38 pH Units (7.32-7.45) 07/04/16 16:25 ABG pCO2 79 mmHg (35-45) H* 07/04/16 16:25 ABG pO2 97 mmHg (85-104) 07/04/16 16:25 ABG O2 Saturation 97 % (95-98) 07/04/16 16:25 PT/INR, D-dimer PT 13.0 Seconds (9.4-12.1) H 07/04/16 16:38 Consult Discharge Plan - Plan Referrals: NO,PCP [Primary Care Provider] -
[2016-07-07] MEDS: Menthol 9.1 MG LOZENGE PO PRN (20:42)
[2016-07-07] MEDS: Mirtazapine 15 MG TABLET PO SCH (21:38)
[2016-07-07] MEDS: Latanoprost 2.5 ML BOTTLE BOTH EYES SCH (21:39)
[2016-07-07] MEDS: Furosemide 20 MG/2 ML VIAL IVP SCH (21:39)
[2016-07-08] MEDS: Menthol 9.1 MG LOZENGE PO PRN ×2 (00:02→09:42)
[2016-07-08] MEDS: Albumin 25% 25gram/100mL 25 GM/100 ML IV.SOLN IVPB SCH ×2 (00:54→09:33)
[2016-07-08] MEDS: *HR* HYDROcodone/Acet 5/325 mg TABLET PO PRN ×3 (02:11→14:05)
[2016-07-08] MEDS: Ondansetron ODT 4 MG TAB.RAPDIS SL PRN ×2 (02:16→10:21)
[2016-07-08] MEDS: ALPRAZolam 0.5 MG TABLET PO PRN ×2 (03:50→19:57)
[2016-07-08] MEDS: Albuterol 2.5 MG/3 ML NEBULIZER IH SCH ×2 (04:18→08:00)
[2016-07-08] MEDS: Ipratropium/Albuterol Neb 3 ML IH SCH ×4 (04:18→20:39)
[2016-07-08 04:37] LABS: Basophils # 0.1 K/mcL (0.0-0.2); Basophils % 0.5 %; Eosinophils # 0.1 K/mcL (0.0-0.6); Eosinophils % 0.4 %; Immature Granulocytes % 1.7 % (0-4); Lymphocytes # 2.6 K/mcL (0.6-4.6); Lymphocytes % 21.9 %; Mean Corpuscular HGB Conc 32.4 g/dL (31.6-35.5); Mean Corpuscular Hemoglobin 30.5 pg (28.0-33.3); Mean Corpuscular Volume 94.2 fL (83.0-100.0); Mean Platelet Volume 9.6 fL (9.4-12.4); Monocytes # 0.9 K/mcL (0.0-1.3); Monocytes % 7.7 %; Neutrophils # 8.1 K/mcL (1.6-8.9); Platelet Count 254 K/mcL (140-400); Red Blood Count 3.61 M/mcL (3.82-4.97); Red Cell Distribution Width 14.4 % (11.5-14.5); Segmented Neutrophils % 67.8 %
[2016-07-08 04:52] LABS: BUN/Creatinine Ratio 18 (6-26); Blood Urea Nitrogen 18 mg/dL (7-20); Calcium 8.9 mg/dL (8.6-10.8); Carbon Dioxide 36 mEq/L (19-29); Chloride 90 mEq/L (98-109); Glucose 88 mg/dL (70-99); Osmolality,Calculated 283 (280-300); Sodium 136 mEq/L (136-145); eGFR For African Americans > 60 (> 60); eGFR For Non-African Americans 53 (> 60)
[2016-07-08 04:55] LABS: Potassium 4.7 mEq/L (3.5-4.5)
[2016-07-08] MEDS: Piperacillin/Tazobactam 3.375 GM in D5% in Water (Mini-Bag+) 100 ML IVPB SCH ×3 (05:51→21:36)
[2016-07-08] MEDS: *HR* Heparin 5,000 UNIT/ML VIAL SQ SCH ×2 (05:52→17:26)
[2016-07-08] MEDS: predniSONE 10 MG TABLET PO SCH (09:30)
[2016-07-08] MEDS: Cholecalciferol (D-3) 1,000 UNIT TABLET PO SCH (09:30)
[2016-07-08] MEDS: Metoprolol XL (24 HR) Succ 50 MG TAB.ER.24H PO SCH (09:30)
[2016-07-08] MEDS: Famotidine 20 MG TABLET PO SCH ×2 (09:30→19:56)
[2016-07-08] MEDS: Thiamine (B-1) 100 MG TABLET PO SCH (09:30)
[2016-07-08] MEDS: Ascorbic Acid 500 MG TABLET PO SCH (09:30)
[2016-07-08] MEDS: Fluticasone Propionate Nasal 50 MCG/SPRAY BOTTLE NS SCH (09:31)
[2016-07-08] MEDS: Furosemide 20 MG/2 ML VIAL IVP SCH ×2 (09:31→19:59)
[2016-07-08] MEDS: Cyanocobalamin (B-12) 1,000 MCG TABLET PO SCH (09:31)
[2016-07-08] MEDS: Silvasorb 44.4 ML TUBE TP SCH (09:32)
[2016-07-08] MEDS: Brinzolamide 1% 10 ML BOTTLE BOTH EYES SCH ×4 (09:32→20:06)
[2016-07-08] MEDS ORDERED: Albuterol 2.5 MG/3 ML NEBULIZER IH PRN (10:13)
--- NOTE | 2016-07-08 10:23 | Internal Med Progress Note ---
Date of Encounter: 07/08/16 Time of Encounter: 10:00 - Assessment and plan (1) Acute and chronic respiratory failure Current Visit: Yes Status: Acute Assessment and plan: Patient is on 2.5 L continuously at home. On examination, poor aeration with absent breath sounds noted and moderate to severe respiratory distress. Patient stating she currently feels as if she is dying. BiPAP stat. IV Ativan as the patient is having a panic attack. We will monitor closely. Full CODE STATUS. Continue Zosyn for suspected pneumonia of unknown etiology. Albumin has also been stopped as she could be experiencing fluid overload and an adverse reaction given her severe systolic heart failure. ITS Impressions Chest X-Ray 07/04/16 19:19 IMPRESSION: Large amount of consolidative airspace disease of the left lung base, nonspecific but most likely atelectasis or pneumonia. Moderate amount right basilar atelectasis versus pneumonia Mild diffuse interstitial edema. Given the cardiac enlargement CHF is considered D/ / Castillo Begum MD / Castillo Begum MD Interpreting Provider: Castillo Begum MD Chest X-Ray 07/06/16 08:53 IMPRESSION: CHF, unchanged. D/ / Michael West MD / Michael West MD Interpreting Provider: Michael West MD (2) Anxiety Current Visit: Yes Status: Chronic Assessment and plan: Severe. Takes Xanax 3 times a day at home as needed. She is currently having a severe anxiety attack/panic attack, we will treat with IV Ativan. Will not attempt to wean this end-stage COPD with severe heart failure 86-year-old off Xanax as it is not clinically indicated. (3) Pneumonia Current Visit: Yes Status: Acute Assessment and plan: Continue Zosyn. Unknown etiology. ITS Impressions Chest X-Ray 07/04/16 19:19 IMPRESSION: Large amount of consolidative airspace disease of the left lung base, nonspecific but most likely atelectasis or pneumonia. Moderate amount right basilar atelectasis versus pneumonia Mild diffuse interstitial edema. Given the cardiac enlargement CHF is considered D/ / Castillo Begum MD / Castillo Begum MD Interpreting Provider: Castillo Begum MD Chest X-Ray 07/06/16 08:53 IMPRESSION: CHF, unchanged. D/ / Michael West MD / Michael West MD Interpreting Provider: Michael West MD Qualifiers: Pneumonia type: due to unspecified organism Laterality: left Lung location: unspecified part of lung Qualified Code(s): J18.9 - Pneumonia, unspecified organism (4) Altered mental status Current Visit: Yes Status: Resolved Assessment and plan: Patient alert and oriented 3 during my interaction with her although she was the middle of the panic attack, will assess her mentation throughout the day. Qualifiers: Altered mental status type: unspecified Qualified Code(s): R41.82 - Altered mental status, unspecified (5) COPD (chronic obstructive pulmonary disease) Current Visit: Yes Status: Chronic Assessment and plan: Treating for pneumonia, CHF overload. Does not appear to be an acute exacerbation of COPD however aeration poor, will initiate Solu-Medrol and monitor closely. Qualifiers: COPD type: unspecified COPD Qualified Code(s): J44.9 - Chronic obstructive pulmonary disease, unspecified (6) Chronic pain Current Visit: Yes Status: Chronic Qualifiers: Chronic pain type: other chronic pain Qualified Code(s): G89.29 - Other chronic pain (7) Congestive heart failure (CHF) Current Visit: Yes Status: Acute Assessment and plan: Echocardiogram revealing ejection fraction of 25-30% with indeterminate diastolic dysfunction. Cardiology is on board. Suspect acute on chronic systolic heart failure. Possibly combined heart failure given that she was on Lasix at home. She appears to be having an adverse reaction to albumin, this has been stopped. Echocardiogram impressions: LVEF 25-30%. No pulmonary hypertension. Severe global left ventricle systolic dysfunction. No severe valvular dysfunction. (8) Constipation Current Visit: Yes Status: Acute Assessment and plan: Resolved Qualifiers: Constipation type: slow transit constipation Qualified Code(s): K59.01 - Slow transit constipation (9) DVT prophylaxis Current Visit: Yes Status: Acute Assessment and plan: Subcutaneous heparin (10) Depression Current Visit: Yes Status: Chronic Qualifiers: Depression Type: unspecified Qualified Code(s): F32.9 - Major depressive disorder, single episode, unspecified (11) Functional quadriplegia Current Visit: Yes Status: Chronic Assessment and plan: Has 24-hour care at home. Palliative is on board. She is currently a full code. She has been bedridden for several years. OT and PT without recommendations given her bedridden status. (12) Goals of care, counseling/discussion Current Visit: Yes Status: Acute Assessment and plan: Palliative on board. (13) Hypertension Current Visit: Yes Status: Chronic Assessment and plan: Controlled, Continue toprol xl and prn hydralazine (have not had to use hydralazine thus far). Qualifiers: Hypertension type: essential hypertension Qualified Code(s): I10 - Essential (primary) hypertension (14) Hypokalemia Current Visit: Yes Status: Resolved Assessment and plan: Now mildly hyperkalemic- will trend (15) Hypomagnesemia Current Visit: Yes Status: Resolved (16) Physical deconditioning Current Visit: Yes Status: Acute Assessment and plan: Patient has been bedridden for 2 years. She receives around the clock care at home. It would not be beneficial at this time the wean the patient off the Xanax given her end-stage COPD and severe heart failure. (17) Pressure ulcer of back Current Visit: Yes Status: Chronic Assessment and plan: Present on admission, continue Uribe sorb and foam dressing changes and frequent turning Qualifiers: Pressure ulcer stage: stage II Qualified Code(s): L89.102 - Pressure ulcer of unspecified part of back, stage 2 (18) UTI (urinary tract infection) Current Visit: Yes Status: Ruled-out Assessment and plan: Ruled out. Urine culture negative. Qualifiers: Urinary tract infection type: site unspecified Hematuria presence: without hematuria Qualified Code(s): N39.0 - Urinary tract infection, site not specified (19) Inadequate dietary caloric intake Current Visit: Yes Status: Acute Assessment and plan: Per nutritional report, patient with an adequate food/beverage intake related to depression, functional decline AE BPO and takes less than 25%. Recommend Ensure supplementation and Remeron - Subjective Interval history: Patient seen and examined. On examination, patient restless stating she cannot breathe. She is stating that she is dying. She is continually asking "do not let me ." - Constitutional Vitals: Temp Pulse Resp BP Pulse Ox 98.1 F 84 15 121/61 95 07/08/16 07:07 07/08/16 07:07 07/08/16 07:07 07/08/16 07:07 07/08/16 07:07 General appearance: Present: disheveled, A&O X 3, severe distress, answers questions appropriately - Head Head exam: Present: atraumatic, normocephalic - Eye Eye exam: Present: PERRL, conjuntiva pink, sclera anicteric Pupils: Present: PERRL - Neck Neck exam general surgery: Present: supple, trachea midline. Absent: lymphadenopathy - Respiratory Respiratory exam: Present: accessory muscle use, decreased breath sounds, prolonged expiratory phase, respiratory distress. Absent: rales, rhonchi, wheezes - Cardiovascular Cardiovascular exam: Present: RRR, +S1, +S2, tachycardia. Absent: diastolic murmur, gallop, rubs, systolic murmur - GI/Abdominal GI/Abdominal exam: Present: normal bowel sounds, soft, no peritoneal signs. Absent: distended, tenderness - Extremities Exam Extremities exam: Present: warm, radial pulses palpable and symetrical. Absent : calf tenderness, cyanotic, pedal edema - Neurological Exam Neurological exam: Present: alert, CN II-XII intact, oriented X3, no focal deficits, strengths equal and symetr throughout (MOEx4). Absent: pronater drift , facial droop, speech deficit - Skin Skin exam: Present: dry, intact, pallor, warm Internal Medicine: Result - Labs CBC & Chem 7: 07/08/16 04:28 07/08/16 04:28 Labs: Short CBC 07/08/16 Range/Units 04:28 WBC 12.0 H (4.3-11.1) K/mcL Hgb 11.0 L (11.5-15.4) g/dL Hct 34.0 L (35.3-44.9) % Plt Count 254 (140-400) K/mcL Neutrophils # 8.1 (1.6-8.9) K/mcL BMP 07/08/16 04:28 Sodium 136 Potassium 4.7 H D Chloride 90 L Carbon Dioxide 36 H BUN 18 Creatinine 0.99 Glucose 88 Calcium 8.9 - ABG Interpretation ABG results: ABG ABG pH 7.38 pH Units (7.32-7.45) 07/04/16 16:25 ABG pCO2 79 mmHg (35-45) H* 07/04/16 16:25 ABG pO2 97 mmHg (85-104) 07/04/16 16:25 ABG O2 Saturation 97 % (95-98) 07/04/16 16:25 PT/INR, D-dimer PT 13.0 Seconds (9.4-12.1) H 07/04/16 16:38 Consult Discharge Plan - Plan Referrals: NO,PCP [Primary Care Provider] -
[2016-07-08] MEDS: *HR* LORazepam 2 MG/ML VIAL IVP PRN ×2 (10:29→21:43)
[2016-07-08] MEDS ORDERED: MethylPREDNISolone 40 MG/ML VIAL IVP ONE (10:30)
[2016-07-08] MEDS ORDERED: Furosemide 20 MG/2 ML VIAL IVP STA (10:45)
[2016-07-08] MEDS ORDERED: Furosemide 40 MG/4 ML VIAL IVP STA (10:45)
--- NOTE | 2016-07-08 10:50 | Event Note ---
Date of Encounter: 07/08/16 Time of Encounter: 10:40 Patient placed on BiPAP and given 1 mg of IV Ativan. She is currently asleep and appears more comfortable though she remains tachycardic with a respiratory rate between 30 and 40 on BiPAP. We will check ABGs, stat chest x-ray, give 20 more milligrams of IV Lasix to make a.m. dose 40 mg for suspected adverse reactions albumin. We will monitor closely; will intubate if indicated.
[2016-07-08 11:23] LABS: ABG Base Excess 16.2 mEq/L (-2.0 to 3.0); ABG HCO3 43.5 mEQ/L (21-27); ABG Oxygen Saturation 97 % (95-98); ABG PCO2 64 mmHg (35-45); ABG PH 7.44 pH Units (7.32-7.45); ABG PO2 88 mmHg (85-104); ABG TCO2 45.5 mEq/L (20-26); Blood Gas FiO2 40 %
--- NOTE | 2016-07-08 12:00 | Cardiology Progress Note ---
Date of Encounter: 07/08/16 Time of Encounter: 11:58 Assessment and Plan (1) Congestive heart failure (CHF) Current Visit: Yes Status: Acute - Echo 07/06/16 showed severe LV systolic dysfunciton with EF 20-25% - Per palliative, patients cathy reports baseline EF around 25% but no documentation available - Continue to monitor volume status closely - Has edema to BLE and is now on BiPAP for shortness of breath - Strict I/O's - Daily weights - Continue Lasix - Supportive care Qualifiers: Congestive heart failure type: combined Congestive heart failure chronicity : acute on chronic Qualified Code(s): I50.43 - Acute on chronic combined systolic (congestive) and diastolic (congestive) heart failure (2) Acute and chronic respiratory failure Current Visit: Yes Status: Acute - Continue current therapy - Exacerbation could be infectious or related to her CHF - Currently on BiPAP - Further management per [facility] [place] Qualifiers: Respiratory failure complication: hypercapnia Qualified Code(s): J96.22 - Acute and chronic respiratory failure with hypercapnia (3) Pneumonia Current Visit: Yes Status: Acute - Management per [facility] [place] - Changed from Rocephin/Azithro to Zosyn - Afebrile overnight, mild leukocytosis Qualifiers: Pneumonia type: due to unspecified organism Laterality: left Lung location: unspecified part of lung Qualified Code(s): J18.9 - Pneumonia, unspecified organism (4) Hypertension Current Visit: Yes Status: Chronic - Well controlled - Continue home Losartan and metoprolol. - Agree with PRN Hydralazine 10mg IVP for SBP > 160 Qualifiers: Hypertension type: essential hypertension Qualified Code(s): I10 - Essential (primary) hypertension (5) COPD (chronic obstructive pulmonary disease) Current Visit: Yes Status: Chronic - Home O2 dependent at 2L - Continue current meds and symptomatic care - On BiPAP, doing well, asking to be taken off - Monitor closely Qualifiers: COPD type: unspecified COPD Qualified Code(s): J44.9 - Chronic obstructive pulmonary disease, unspecified (6) Functional quadriplegia Current Visit: Yes Status: Chronic - Reportedly was ambulatory until 2 years ago - unclear etilogy - Workups previously - palliative following as well - able to move upper extremities well but limited in BLE (7) Altered mental status Current Visit: Yes Status: Resolved - At baseline - GCS 14 - Moves all extremities Qualifiers: Altered mental status type: unspecified Qualified Code(s): R41.82 - Altered mental status, unspecified (8) Goals of care, counseling/discussion Current Visit: Yes Status: Acute - Palliative care following Discussion w patient/family: The assessment and plan as outlined above was discussed with the patient and/or family members who expressed understanding and agreement. All questions were answered. Thank you for involving us in the care of your patient. Please call with any questions. Subjective Principal diagnosis: Acute on chronic respiratory failure Interval history: Patient was developing increased dyspnea and "having a panic attack" this morning. Of note, she was weaned off home dose of Xanax over the weekend. THis morning, she was placed on BiPAP, given ativan, IV lasix, and repeated ABG/ CXR. Upon my examination, the patient states that she hurts all over. 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 Denies any chest pain but states she was having trouble breathing earlier. Reports remote history of CABG x2 and A-fib but now has a pacemaker. No acute change in complaints other than feeling more SOB. Objective Vital Signs, Last 4 Hours Temp Pulse Resp BP Pulse Ox 07/08/16 11:16 97.4 F L 82 17 154/83 99 On BiPAP General: Other (somnolent, frail, chronically ill) HEENT: Atraumatic, Normocephaly Neck: No JVD, Normal carotid pulses Cardiac: Reg Rate and Rhythm, Normal S1 and S2, No Murmur Lungs: Other (crackles in all lung [place], tachypnic, decreased breathsounds in all lung [place], moderate respiratory distress and on BiPAP.) Neuro: Other (somnolent, answers all questions appropriately, GCS 14 (E3,V5,M6) , moves upper extremities well, weak in BLE) Abdomen: Soft, Non-Tender Skin: Other (extensive ulcerated lesions to extremities) Musculoskeletal: No Chest Wall Tenderness Extremities: No Clubbing, No Cyanosis, Normal Pulses, Other (2-3+ pitting edema BLE) Results 07/08/16 04:28 07/08/16 04:28 Lab Results 07/08/16 07/08/16 04:28 04:28 WBC 12.0 H Hgb 11.0 L Hct 34.0 L Plt Count 254 Sodium 136 Potassium 4.7 H D Chloride 90 L Carbon Dioxide 36 H BUN 18 Creatinine 0.99 Glucose 88 Calcium 8.9 - Imaging and Cardiology Chest Xray: pending Echo: report reviewed - EKG Interpretation EKG results cardiology: personally reviewed, other (paced rhythm) Consult Discharge Plan - Plan Referrals: NO,PCP [Primary Care Provider] -
--- NOTE | 2016-07-08 12:10 | Palliative Progress Note ---
Date of Encounter: 07/08/16 Time of Encounter: 12:10 - Assessment and plan (1) Goals of care, counseling/discussion Current Visit: Yes Status: Acute Assessment and plan: Family was update on morning events. No change in goals of care, family continues to seek aggressive care. (2) Functional quadriplegia Current Visit: Yes Status: Chronic Assessment and plan: At baseline (3) Chronic pain Current Visit: Yes Status: Chronic Assessment and plan: Ms. Schulte has been asking nursing frequently for her doses of pain medication. Her home dose is percocet 10/325 every 4-6 hours. Will d/c norco and start percocet 5mg/325mg every 6 hours as needed. Qualifiers: Chronic pain type: other chronic pain Qualified Code(s): G89.29 - Other chronic pain (4) Constipation Current Visit: Yes Status: Acute Assessment and plan: Ms. Lorenzos contipation has resolved. Senna d/c'd yesterday due to frequent loose stools (related to laxative use). BM frequency has decreased. Continue to follow. Qualifiers: Constipation type: slow transit constipation Qualified Code(s): K59.01 - Slow transit constipation - Time Spent With Patient Total time spent is greater than 50% in coordination of care (as documented) at patient's floor/unit and/or counseling patient: - Subjective Interval history: Ms. Schulte is lying in bed resting on BiPAP. Events from earlier noted. Respiratory rate now 28. - Constitutional Vitals: Abnormal lab results WBC 12.0 K/mcL (4.3-11.1) H 07/08/16 04:28 RBC 3.61 M/mcL (3.82-4.97) L 07/08/16 04:28 Hgb 11.0 g/dL (11.5-15.4) L 07/08/16 04:28 Hct 34.0 % (35.3-44.9) L 07/08/16 04:28 PT 13.0 Seconds (9.4-12.1) H 07/04/16 16:38 ABG pCO2 64 mmHg (35-45) H 07/08/16 11:09 ABG HCO3 43.5 mEQ/L (21-27) H 07/08/16 11:09 ABG Total CO2 45.5 mEq/L (20-26) H 07/08/16 11:09 ABG Base Excess 16.2 mEq/L (-2.0 to 3.0) H 07/08/16 11:09 Potassium 4.7 mEq/L (3.5-4.5) H D 07/08/16 04:28 Chloride 90 mEq/L (98-109) L 07/08/16 04:28 Carbon Dioxide 36 mEq/L (19-29) H 07/08/16 04:28 Est GFR (Non-Af Amer) 53 (> 60) L 07/08/16 04:28 Alkaline Phosphatase 172 Units/L (38-126) H 07/04/16 16:38 Ammonia 13 mcmol/L (18-72) L 07/04/16 16:38 Albumin 2.1 g/dL (3.5-5.0) L 07/06/16 18:12 Globulin 4.2 g/dL (2.4-3.5) H 07/04/16 16:38 Albumin/Globulin Ratio 0.5 (1.1-2.2) L 07/04/16 16:38 Vitamin B12 > 2000 pg/mL (213-816) H 07/06/16 18:12 Urine Clarity Cloudy (Clear) A 07/04/16 18:52 Ur Leukocyte Esterase Large (Negative) H 07/04/16 18:52 Urine Microscopic WBC TNTC per hpf (0-3) H 07/04/16 18:52 Urine Yeast Moderate per hpf (None Seen) H 07/04/16 18:52 Ur Culture Indicated? YES (NO) A 07/04/16 18:52 Vancomycin Trough 22.3 mcg/mL (10-20) H* 07/07/16 00:00 General appearance: Present: cooperative, mild distress Exam: 86 year old female appearing chronically ill - Respiratory Respiratory exam: Present: accessory muscle use, respiratory distress (mild, improved with BiPAP. ) - Cardiovascular Cardiovascular exam: Present: RRR - GI/Abdominal GI/Abdominal exam: Present: soft. Absent: tenderness - Neurological Exam Neurological exam: Present: alert, oriented X3 Palliative Quality Palliative Quality: Screen for Code Status: Yes, Screen for Goals of Care: Yes, Screen for Pain: Yes, If Pain Regimen Started, Initiate Bowel Regimen: Yes, Screen for Nausea/Vomitting: Yes - Labs CBC & Chem 7: 07/08/16 04:28 07/08/16 04:28 Labs: Laboratory Results - last 24 hr 07/08/16 07/08/16 07/08/16 04:28 04:28 11:09 WBC 12.0 H RBC 3.61 L Hgb 11.0 L Hct 34.0 L MCV 94.2 MCH 30.5 MCHC 32.4 RDW 14.4 Plt Count 254 MPV 9.6 Immature Gran % 1.7 Seg Neutrophils % 67.8 Lymphocytes % 21.9 Monocytes % 7.7 Eosinophils % 0.4 Basophils % 0.5 Neutrophils # 8.1 Lymphocytes # 2.6 Monocytes # 0.9 Eosinophils # 0.1 Basophils # 0.1 ABG pH 7.44 ABG pCO2 64 H ABG pO2 88 ABG HCO3 43.5 H ABG Total CO2 45.5 H ABG O2 Saturation 97 ABG Base Excess 16.2 H Blood Gas Modality BIPAP Inspired O2 40 Sodium 136 Potassium 4.7 H D Chloride 90 L Carbon Dioxide 36 H BUN 18 Creatinine 0.99 Est GFR ( Amer) > 60 Est GFR (Non-Af Amer) 53 L BUN/Creatinine Ratio 18 Glucose 88 Calculated Osmolality 283 Calcium 8.9 - Impressions Impressions Chest X-Ray 07/08/16 10:50 IMPRESSION: No substantial change in appearance of the lungs. Small bilateral pleural effusions as well as bibasilar opacities. D/ / Jeannie Medley MD / Jeannie Medley MD Interpreting Provider: Jeannie Medley MD - ABG Interpretation ABG results: ABG ABG pH 7.44 pH Units (7.32-7.45) 07/08/16 11:09 ABG pCO2 64 mmHg (35-45) H 07/08/16 11:09 ABG pO2 88 mmHg (85-104) 07/08/16 11:09 ABG O2 Saturation 97 % (95-98) 07/08/16 11:09 PT/INR, D-dimer PT 13.0 Seconds (9.4-12.1) H 07/04/16 16:38 Consult Discharge Plan - Plan Referrals: NO,PCP [Primary Care Provider] -
[2016-07-08] MEDS: Budesonide/Formoterol 160/4.5 MDI IH SCH ×2 (12:13→20:39)
--- NOTE | 2016-07-08 13:23 | Event Note ---
Date of Encounter: 07/08/16 Time of Encounter: 12:30 Patient seen and reexamined. On examination, patient's respiratory rate is now 20 and she appears much more comfortable. She does open her eyes and answer questions and then quickly falls back to sleep. Aeration has improved, now with fair aeration and diffuse expiratory wheezing present. ABGs repeated with decrease in her PCO2 since 4 days ago during her last ABG report. DuoNeb's changed to every 4 hours. Suspect acute volume overload secondary to albumin and fenestrations which have been stopped. The patient was given extra Lasix and is improving. We will continue BiPAP as needed.
[2016-07-08] MEDS: *HR* OxyCODONE/APAP 5/325 TABLET PO PRN (17:27)
[2016-07-08] MEDS: MethylPREDNISolone 40 MG/ML VIAL IVP SCH (17:34)
[2016-07-08] MEDS: Mirtazapine 15 MG TABLET PO SCH (19:57)
[2016-07-08] MEDS: Latanoprost 2.5 ML BOTTLE BOTH EYES SCH (20:07)
[2016-07-08] MEDS ORDERED: *HR* Morphine 2 MG/ML SYRINGE IVP ONE (21:22)
[2016-07-08] MEDS ORDERED: Water for inj. (sterile) 10 ML IV ONE (21:41)
[2016-07-09] MEDS: *HR* OxyCODONE/APAP 5/325 TABLET PO PRN ×2 (00:07→06:40)
[2016-07-09] MEDS: MethylPREDNISolone 40 MG/ML VIAL IVP SCH ×4 (00:07→22:37)
[2016-07-09] MEDS ORDERED: *HR* LORazepam 2 MG/ML VIAL IVP ONE (01:52)
[2016-07-09] MEDS ORDERED: Water for inj. (sterile) 10 ML IV ONE (02:07)
[2016-07-09] MEDS: Ipratropium/Albuterol Neb 3 ML IH SCH ×7 (03:44→23:54)
[2016-07-09 04:42] LABS: Basophils % 0.1 %; Hematocrit 34.8 % (35.3-44.9); Hemoglobin 11.2 g/dL (11.5-15.4); Immature Granulocytes % 2.4 % (0-4); Lymphocytes # 0.4 K/mcL (0.6-4.6); Lymphocytes % 4.5 %; Mean Corpuscular HGB Conc 32.2 g/dL (31.6-35.5); Mean Corpuscular Hemoglobin 30.7 pg (28.0-33.3); Mean Corpuscular Volume 95.3 fL (83.0-100.0); Mean Platelet Volume 9.9 fL (9.4-12.4); Monocytes # 0.2 K/mcL (0.0-1.3); Monocytes % 1.8 %; Neutrophils # 8.6 K/mcL (1.6-8.9); Platelet Count 223 K/mcL (140-400); Red Blood Count 3.65 M/mcL (3.82-4.97); Red Cell Distribution Width 14.4 % (11.5-14.5); Segmented Neutrophils % 91.2 %
[2016-07-09 05:06] LABS: BUN/Creatinine Ratio 18 (6-26); Blood Urea Nitrogen 16 mg/dL (7-20); Carbon Dioxide 33 mEq/L (19-29); Chloride 97 mEq/L (98-109); Glucose 145 mg/dL (70-99); Osmolality,Calculated 292 (280-300); Sodium 139 mEq/L (136-145); eGFR For African Americans > 60 (> 60); eGFR For Non-African Americans > 60 (> 60)
[2016-07-09 05:21] LABS: Calcium 7.5 mg/dL (8.6-10.8); Potassium 3.1 mEq/L (3.5-4.5)
[2016-07-09] MEDS: Piperacillin/Tazobactam 3.375 GM in D5% in Water (Mini-Bag+) 100 ML IVPB SCH ×3 (06:36→21:27)
[2016-07-09] MEDS: *HR* Heparin 5,000 UNIT/ML VIAL SQ SCH ×2 (06:39→17:06)
[2016-07-09] MEDS: Budesonide/Formoterol 160/4.5 MDI IH SCH ×2 (07:54→20:15)
[2016-07-09] MEDS: Brinzolamide 1% 10 ML BOTTLE BOTH EYES SCH ×4 (07:55→19:58)
[2016-07-09] MEDS: Furosemide 20 MG/2 ML VIAL IVP SCH ×2 (07:55→19:56)
[2016-07-09] MEDS: Thiamine (B-1) 100 MG TABLET PO SCH (07:56)
[2016-07-09] MEDS: Fluticasone Propionate Nasal 50 MCG/SPRAY BOTTLE NS SCH ×2 (07:56→08:12)
[2016-07-09] MEDS: Cyanocobalamin (B-12) 1,000 MCG TABLET PO SCH (07:56)
[2016-07-09] MEDS: Famotidine 20 MG TABLET PO SCH ×2 (07:57→19:56)
[2016-07-09] MEDS: Ascorbic Acid 500 MG TABLET PO SCH (07:57)
[2016-07-09] MEDS: Cholecalciferol (D-3) 1,000 UNIT TABLET PO SCH (07:57)
[2016-07-09] MEDS: Metoprolol XL (24 HR) Succ 50 MG TAB.ER.24H PO SCH (07:58)
[2016-07-09] MEDS: Silvasorb 44.4 ML TUBE TP SCH (07:58)
[2016-07-09] MEDS: ALPRAZolam 0.5 MG TABLET PO PRN ×2 (08:30→22:37)
[2016-07-09] MEDS ORDERED: Potassium Chloride Elixir 20 MEQ/15 ML UDC PO ONE (08:46)
[2016-07-09] MEDS: Ondansetron ODT 4 MG TAB.RAPDIS SL PRN (08:50)
--- NOTE | 2016-07-09 10:10 | Cardiology Progress Note ---
Date of Encounter: 07/09/16 Time of Encounter: 10:07 Assessment and Plan (1) Acute and chronic respiratory failure Current Visit: Yes Status: Acute In the setting of CHF and pnuemonia. Continue diuresis. IV diuretic increased. CXR 07/08/16 showed no change in appearance. Small bilateral pleural effusions and bibasilar atelectasis. Qualifiers: Respiratory failure complication: hypercapnia Qualified Code(s): J96.22 - Acute and chronic respiratory failure with hypercapnia (2) Congestive heart failure (CHF) Current Visit: Yes Status: Acute - Echo 07/06/16 showed severe LV systolic dysfunciton with EF 20-25% Pt family reports known CMP, EF 25%. Recently seen at the [facility]. Reports ordered to compare. Given advanced age, immobility, and deconditioning continued medical management recommended. Continues to c/o SOB. Rales noted in posterior bases. 1+ BLE edema. Increase lasix to 40 mg BID. Replace potassium. K3.1. 40 Meq given today. Will start maintenance dose. Monitor BMP. continue beta-reyna and arb. Qualifiers: Congestive heart failure type: combined Congestive heart failure chronicity : acute on chronic Qualified Code(s): I50.43 - Acute on chronic combined systolic (congestive) and diastolic (congestive) heart failure (3) CAD (coronary artery disease) Current Visit: Yes Status: Acute H/O CAD S/P CABG. Asa, statin, and beta-reyna recommended. Qualifiers: Coronary Disease-Associated Artery/Lesion type: [place] artery [place] vs. transplanted heart: [place] heart Associated angina: angina presence unspecified Qualified Code(s): I25.10 - Atherosclerotic heart disease of [place] coronary artery without angina pectoris (4) Atrial fibrillation Current Visit: Yes Status: Acute FAmily reported history of afib s/p PPM. She was not on anticoagulation or asa. Asa started. Awaiting records from [facility]. Currently AV paced. Telemetry review showed atrial tachycardia at 8:30 Pm with maximum HR 130 bpm. Avg HR was 86 bpm over 24 hours. Continue metoprolol. Qualifiers: Atrial fibrillation type: unspecified Qualified Code(s): I48.91 - Unspecified atrial fibrillation Discussion w patient/family: The assessment and plan as outlined above was discussed with the patient and/or family members who expressed understanding and agreement. All questions were answered. Thank you for involving us in the care of your patient. Please call with any questions. Subjective Principal diagnosis: Acute on chronic respiratory failure Interval history: Pt resting quietly in bed. Reports symptoms unchanged. Continues to have SOB at rest. C/o intermittent chest discomfort with deep breaths. Objective Vital Signs, Last 4 Hours Temp Pulse Resp BP Pulse Ox 07/09/16 08:19 97 07/09/16 07:49 99.0 F 108 15 129/71 97 General: Conversant, No Apparent Distress, Other (Frail elderly female) HEENT: Atraumatic, Normocephaly, Mucus Membranes Moist Neck: No JVD, Normal carotid pulses Cardiac: Reg Rate and Rhythm, Normal S1 and S2, No Murmur Lungs: Other (Coarse rales noted in posterior bases. ) Neuro: Alert and responsive, No focal deficits noted Abdomen: Soft, Non-Tender Skin: Other (Multiple actenic keratosis lesions over all of her body, couple of skin ulers noted on BLE. ) Musculoskeletal: No Chest Wall Tenderness Extremities: No Clubbing, No Cyanosis, Normal Pulses, Other (1+ edema from mid [place]dy to feet. ) Results 07/09/16 04:14 07/09/16 04:14 Lab Results 07/09/16 07/09/16 04:14 04:14 WBC 9.5 Hgb 11.2 L Hct 34.8 L Plt Count 223 Sodium 139 Potassium 3.1 L D Chloride 97 L Carbon Dioxide 33 H BUN 16 Creatinine 0.88 Glucose 145 H Calcium 7.5 L D Consult Discharge Plan - Plan Referrals: NO,PCP [Primary Care Provider] -
[2016-07-09] MEDS: Menthol 9.1 MG LOZENGE PO PRN ×2 (10:47→17:10)
[2016-07-09] MEDS: *HR* OxyCODONE Immed Rel 5 MG TABLET PO PRN ×3 (10:47→17:08)
[2016-07-09] MEDS: Aspirin Enteric Coated 81 MG Tablet PO SCH (10:47)
--- NOTE | 2016-07-09 11:27 | Palliative Progress Note ---
<Jose Manuel Parsons - Last Filed: 07/09/16 11:34> Date of Encounter: 07/09/16 Time of Encounter: 11:25 - Assessment and plan (1) Chronic pain Current Visit: Yes Status: Chronic Assessment and plan: Increased pain medication to 10mg oxycodone q3h prn as her pain was not being adequately reduced. Qualifiers: Chronic pain type: other chronic pain Qualified Code(s): G89.29 - Other chronic pain (2) Constipation Current Visit: Yes Status: Resolved Assessment and plan: Resolved. Laxatives d/c'd to avoid diarrhea Qualifiers: Constipation type: slow transit constipation Qualified Code(s): K59.01 - Slow transit constipation (3) Goals of care, counseling/discussion Current Visit: Yes Status: Acute Assessment and plan: No change in goals. Full code status remains. Pt. has no questions this am regarding code status or goals of care. (4) Functional quadriplegia Current Visit: Yes Status: Chronic Assessment and plan: appears to be at her baseline. - Time Spent With Patient Total time spent is greater than 50% in coordination of care (as documented) at patient's floor/unit and/or counseling patient: - Subjective Interval history: Patient seen and examined. Laying in bed, appears to be in mild distress. States her pain is 10/10 and is not due for pain medicine. States she is still having anxiety. She was previously constipated but received laxatives and had multiple episodes of diarrhea. Her diarrhea has now subsided but she states her rectum is very tender/painful. No other complaints at this time. - Constitutional Vitals: Abnormal lab results RBC 3.65 M/mcL (3.82-4.97) L 07/09/16 04:14 Hgb 11.2 g/dL (11.5-15.4) L 07/09/16 04:14 Hct 34.8 % (35.3-44.9) L 07/09/16 04:14 Lymphocytes # 0.4 K/mcL (0.6-4.6) L 07/09/16 04:14 PT 13.0 Seconds (9.4-12.1) H 07/04/16 16:38 ABG pCO2 64 mmHg (35-45) H 07/08/16 11:09 ABG HCO3 43.5 mEQ/L (21-27) H 07/08/16 11:09 ABG Total CO2 45.5 mEq/L (20-26) H 07/08/16 11:09 ABG Base Excess 16.2 mEq/L (-2.0 to 3.0) H 07/08/16 11:09 Potassium 3.1 mEq/L (3.5-4.5) L D 07/09/16 04:14 Chloride 97 mEq/L (98-109) L 07/09/16 04:14 Carbon Dioxide 33 mEq/L (19-29) H 07/09/16 04:14 Glucose 145 mg/dL (70-99) H 07/09/16 04:14 Calcium 7.5 mg/dL (8.6-10.8) L D 07/09/16 04:14 Alkaline Phosphatase 172 Units/L (38-126) H 07/04/16 16:38 Ammonia 13 mcmol/L (18-72) L 07/04/16 16:38 Albumin 2.1 g/dL (3.5-5.0) L 07/06/16 18:12 Globulin 4.2 g/dL (2.4-3.5) H 07/04/16 16:38 Albumin/Globulin Ratio 0.5 (1.1-2.2) L 07/04/16 16:38 Vitamin B12 > 2000 pg/mL (213-816) H 07/06/16 18:12 Urine Clarity Cloudy (Clear) A 07/04/16 18:52 Ur Leukocyte Esterase Large (Negative) H 07/04/16 18:52 Urine Microscopic WBC TNTC per hpf (0-3) H 07/04/16 18:52 Urine Yeast Moderate per hpf (None Seen) H 07/04/16 18:52 Ur Culture Indicated? YES (NO) A 07/04/16 18:52 Vancomycin Trough 22.3 mcg/mL (10-20) H* 07/07/16 00:00 General appearance: Present: disheveled, mild distress - Respiratory Respiratory exam: Absent: respiratory distress - Cardiovascular Cardiovascular exam: Present: RRR - GI/Abdominal GI/Abdominal exam: Absent: firm - Neurological Exam Neurological exam: Present: alert, oriented X3 Palliative Quality Palliative Quality: Screen for Code Status: Yes, Screen for Goals of Care: Yes, Screen for Pain: Yes, If Pain Regimen Started, Initiate Bowel Regimen: Yes, Screen for Nausea/Vomitting: Yes - Labs CBC & Chem 7: 07/09/16 04:14 07/09/16 04:14 Labs: Laboratory Results - last 24 hr 07/06/16 07/09/16 07/09/16 18:12 04:14 04:14 WBC 9.5 RBC 3.65 L Hgb 11.2 L Hct 34.8 L MCV 95.3 MCH 30.7 MCHC 32.2 RDW 14.4 Plt Count 223 MPV 9.9 Immature Gran % 2.4 Seg Neutrophils % 91.2 Lymphocytes % 4.5 Monocytes % 1.8 Eosinophils % 0.0 Basophils % 0.1 Neutrophils # 8.6 Lymphocytes # 0.4 L Monocytes # 0.2 Eosinophils # 0.0 Basophils # 0.0 Sodium 139 Potassium 3.1 L D Chloride 97 L Carbon Dioxide 33 H BUN 16 Creatinine 0.88 Est GFR ( Amer) > 60 Est GFR (Non-Af Amer) > 60 BUN/Creatinine Ratio 18 Glucose 145 H Calculated Osmolality 292 Calcium 7.5 L D 25-OH Vitamin D Total 32 - Impressions Impressions Chest X-Ray 07/08/16 10:50 IMPRESSION: No substantial change in appearance of the lungs. Small bilateral pleural effusions as well as bibasilar opacities. D/ / Jeannie Medley MD / Jeannie Medley MD Interpreting Provider: Jeannie Medley MD - ABG Interpretation ABG results: ABG ABG pH 7.44 pH Units (7.32-7.45) 07/08/16 11:09 ABG pCO2 64 mmHg (35-45) H 07/08/16 11:09 ABG pO2 88 mmHg (85-104) 07/08/16 11:09 ABG O2 Saturation 97 % (95-98) 07/08/16 11:09 PT/INR, D-dimer PT 13.0 Seconds (9.4-12.1) H 07/04/16 16:38 Consult Discharge Plan - Plan Referrals: NO,PCP [Primary Care Provider] - <Orlin Burrows L - Last Filed: 07/09/16 13:55> Date of Encounter: 07/09/16 - Time Spent With Patient Total time spent is greater than 50% in coordination of care (as documented) at patient's floor/unit and/or counseling patient: - Constitutional Vitals: Abnormal lab results RBC 3.65 M/mcL (3.82-4.97) L 07/09/16 04:14 Hgb 11.2 g/dL (11.5-15.4) L 07/09/16 04:14 Hct 34.8 % (35.3-44.9) L 07/09/16 04:14 Lymphocytes # 0.4 K/mcL (0.6-4.6) L 07/09/16 04:14 PT 13.0 Seconds (9.4-12.1) H 07/04/16 16:38 ABG pCO2 64 mmHg (35-45) H 07/08/16 11:09 ABG HCO3 43.5 mEQ/L (21-27) H 07/08/16 11:09 ABG Total CO2 45.5 mEq/L (20-26) H 07/08/16 11:09 ABG Base Excess 16.2 mEq/L (-2.0 to 3.0) H 07/08/16 11:09 Potassium 3.1 mEq/L (3.5-4.5) L D 07/09/16 04:14 Chloride 97 mEq/L (98-109) L 07/09/16 04:14 Carbon Dioxide 33 mEq/L (19-29) H 07/09/16 04:14 Glucose 145 mg/dL (70-99) H 07/09/16 04:14 Calcium 7.5 mg/dL (8.6-10.8) L D 07/09/16 04:14 Alkaline Phosphatase 172 Units/L (38-126) H 07/04/16 16:38 Ammonia 13 mcmol/L (18-72) L 07/04/16 16:38 Albumin 2.1 g/dL (3.5-5.0) L 07/06/16 18:12 Globulin 4.2 g/dL (2.4-3.5) H 07/04/16 16:38 Albumin/Globulin Ratio 0.5 (1.1-2.2) L 07/04/16 16:38 Vitamin B12 > 2000 pg/mL (213-816) H 07/06/16 18:12 Urine Clarity Cloudy (Clear) A 07/04/16 18:52 Ur Leukocyte Esterase Large (Negative) H 07/04/16 18:52 Urine Microscopic WBC TNTC per hpf (0-3) H 07/04/16 18:52 Urine Yeast Moderate per hpf (None Seen) H 07/04/16 18:52 Ur Culture Indicated? YES (NO) A 07/04/16 18:52 Vancomycin Trough 22.3 mcg/mL (10-20) H* 07/07/16 00:00 - Attending Attestation I examined this patient and my medical decision-making was reviewed with the POUL[employer]ER/PA/Advanced Practice Nurse/Resident Physician. I agree with the documented findings, disposition and treatment plan as described except to the extent set forth below. Palliative Quality Palliative Quality: Screen for Code Status: Yes, Screen for Goals of Care: Yes, Screen for Pain: Yes, If Pain Regimen Started, Initiate Bowel Regimen: Yes, Screen for Nausea/Vomitting: Yes - Labs CBC & Chem 7: 07/09/16 04:14 07/09/16 04:14 Labs: Laboratory Results - last 24 hr 07/09/16 07/09/16 04:14 04:14 WBC 9.5 RBC 3.65 L Hgb 11.2 L Hct 34.8 L MCV 95.3 MCH 30.7 MCHC 32.2 RDW 14.4 Plt Count 223 MPV 9.9 Immature Gran % 2.4 Seg Neutrophils % 91.2 Lymphocytes % 4.5 Monocytes % 1.8 Eosinophils % 0.0 Basophils % 0.1 Neutrophils # 8.6 Lymphocytes # 0.4 L Monocytes # 0.2 Eosinophils # 0.0 Basophils # 0.0 Sodium 139 Potassium 3.1 L D Chloride 97 L Carbon Dioxide 33 H BUN 16 Creatinine 0.88 Est GFR ( Amer) > 60 Est GFR (Non-Af Amer) > 60 BUN/Creatinine Ratio 18 Glucose 145 H Calculated Osmolality 292 Calcium 7.5 L D - ABG Interpretation ABG results: ABG ABG pH 7.44 pH Units (7.32-7.45) 07/08/16 11:09 ABG pCO2 64 mmHg (35-45) H 07/08/16 11:09 ABG pO2 88 mmHg (85-104) 07/08/16 11:09 ABG O2 Saturation 97 % (95-98) 07/08/16 11:09 PT/INR, D-dimer PT 13.0 Seconds (9.4-12.1) H 07/04/16 16:38
--- NOTE | 2016-07-09 14:03 | Internal Med Progress Note ---
Date of Encounter: 07/09/16 Time of Encounter: 09:00 (and 1030) - Assessment and plan (1) Acute and chronic respiratory failure Current Visit: Yes Status: Acute Assessment and plan: Patient is currently requiring 3 L per nasal cannula continuously. Aeration much improved today. Respirations are even and mildly labored. Patient has not needed BiPAP since yesterday morning, suspect acute fluid overload secondary to albumin administration which has since resolved. She was also started on Solu-Medrol yesterday. Plan is for the patient to return back to her prior living situation as early as tomorrow pending clinical outcomes. Patient continually complaining of pain, her home oxycodone 10 mg every 4 hours has been continued at every 3 hours as needed. I had a realistic conversation with the patient this morning regarding pain management. She is aware that her pain cannot be completely alleviated but can be at a more tolerable level. 07/08/16 Patient is on 2.5 L continuously at home. On examination, poor aeration with absent breath sounds noted and moderate to severe respiratory distress. Patient stating she currently feels as if she is dying. BiPAP stat. IV Ativan as the patient is having a panic attack. We will monitor closely. Full CODE STATUS. Continue Zosyn for suspected pneumonia of unknown etiology. Albumin has also been stopped as she could be experiencing fluid overload and an adverse reaction given her severe systolic heart failure. ITS Impressions Chest X-Ray 07/04/16 19:19 IMPRESSION: Large amount of consolidative airspace disease of the left lung base, nonspecific but most likely atelectasis or pneumonia. Moderate amount right basilar atelectasis versus pneumonia Mild diffuse interstitial edema. Given the cardiac enlargement CHF is considered D/ / Castillo Begum MD / Castillo Begum MD Interpreting Provider: Castillo Begum MD Chest X-Ray 07/06/16 08:53 IMPRESSION: CHF, unchanged. D/ / Michael West MD / Michael West MD Interpreting Provider: Michael West MD (2) Anxiety Current Visit: Yes Status: Chronic Assessment and plan: Severe. Takes Xanax 3 times a day at home as needed. Patient had a panic attack yesterday which resolved with IV Ativan. Will not attempt to wean this end-stage COPD with severe heart failure 86-year-old off Xanax as it is not clinically indicated. (3) Pneumonia Current Visit: Yes Status: Acute Assessment and plan: Continue Zosyn. Unknown etiology. ITS Impressions Chest X-Ray 07/04/16 19:19 IMPRESSION: Large amount of consolidative airspace disease of the left lung base, nonspecific but most likely atelectasis or pneumonia. Moderate amount right basilar atelectasis versus pneumonia Mild diffuse interstitial edema. Given the cardiac enlargement CHF is considered D/ / Castillo Begum MD / Castillo Begum MD Interpreting Provider: Castillo Begum MD Chest X-Ray 07/06/16 08:53 IMPRESSION: CHF, unchanged. D/ / Michael West MD / Michael West MD Interpreting Provider: Michael West MD Qualifiers: Pneumonia type: due to unspecified organism Laterality: left Lung location: unspecified part of lung Qualified Code(s): J18.9 - Pneumonia, unspecified organism (4) Altered mental status Current Visit: Yes Status: Resolved Assessment and plan: Patient alert and oriented 3 during my interaction Qualifiers: Altered mental status type: unspecified Qualified Code(s): R41.82 - Altered mental status, unspecified (5) COPD (chronic obstructive pulmonary disease) Current Visit: Yes Status: Chronic Assessment and plan: Aeration much improved today. Continue Solu-Medrol. She has not required BiPAP since yesterday morning. 07/08/16 Treating for pneumonia, CHF overload. Does not appear to be an acute exacerbation of COPD however aeration poor, will initiate Solu-Medrol and monitor closely. Qualifiers: COPD type: unspecified COPD Qualified Code(s): J44.9 - Chronic obstructive pulmonary disease, unspecified (6) Chronic pain Current Visit: Yes Status: Chronic Qualifiers: Chronic pain type: other chronic pain Qualified Code(s): G89.29 - Other chronic pain (7) Congestive heart failure (CHF) Current Visit: Yes Status: Acute Assessment and plan: Patient was likely overloaded yesterday with albumin which was stopped. She was also given extra Lasix. Aeration much improved today. She has not needed BiPAP since yesterday morning. 07/08/16 Echocardiogram revealing ejection fraction of 25-30% with indeterminate diastolic dysfunction. Cardiology is on board. Suspect acute on chronic systolic heart failure. Possibly combined heart failure given that she was on Lasix at home. She appears to be having an adverse reaction to albumin, this has been stopped. Echocardiogram impressions: LVEF 25-30%. No pulmonary hypertension. Severe global left ventricle systolic dysfunction. No severe valvular dysfunction. (8) Constipation Current Visit: Yes Status: Resolved Assessment and plan: Resolved Qualifiers: Constipation type: slow transit constipation Qualified Code(s): K59.01 - Slow transit constipation (9) DVT prophylaxis Current Visit: Yes Status: Acute Assessment and plan: Subcutaneous heparin (10) Depression Current Visit: Yes Status: Chronic Qualifiers: Depression Type: unspecified Qualified Code(s): F32.9 - Major depressive disorder, single episode, unspecified (11) Functional quadriplegia Current Visit: Yes Status: Chronic Assessment and plan: Has 24-hour care at home. Palliative is on board. She is currently a full code. She has been bedridden for several years. OT and PT without recommendations given her bedridden status. Plan is for her to return home with her [id number] care. Possible discharge as early as tomorrow pending clinical outcomes and respiratory status. (12) Goals of care, counseling/discussion Current Visit: Yes Status: Acute Assessment and plan: Palliative on board. Patient informed me this morning that she is sick and tired of going through pain and suffering. CODE STATUS conversation was brought up again and again she decided to remain a full code. (13) Hypertension Current Visit: Yes Status: Chronic Assessment and plan: Controlled, Continue toprol xl and prn hydralazine (have not had to use hydralazine thus far). Qualifiers: Hypertension type: essential hypertension Qualified Code(s): I10 - Essential (primary) hypertension (14) Hypokalemia Current Visit: Yes Status: Acute Assessment and plan: Now mildly hyperkalemic- will replace (15) Physical deconditioning Current Visit: Yes Status: Acute Assessment and plan: Patient has been bedridden for 2 years. She receives around the clock care at home. It would not be beneficial at this time the wean the patient off the Xanax given her end-stage COPD and severe heart failure. OT and PT has no services to offer given that she is bedridden. Plan is to return her back home pending clinical outcomes. (16) Pressure ulcer of back Current Visit: Yes Status: Chronic Assessment and plan: Present on admission, continue Uribe sorb and foam dressing changes and frequent turning Qualifiers: Pressure ulcer stage: stage II Qualified Code(s): L89.102 - Pressure ulcer of unspecified part of back, stage 2 (17) UTI (urinary tract infection) Current Visit: Yes Status: Ruled-out Assessment and plan: Ruled out. Urine culture negative. Qualifiers: Urinary tract infection type: site unspecified Hematuria presence: without hematuria Qualified Code(s): N39.0 - Urinary tract infection, site not specified (18) Inadequate dietary caloric intake Current Visit: Yes Status: Acute Assessment and plan: Per nutritional report, patient with an adequate food/beverage intake related to depression, functional decline AE BPO and takes less than 25%. 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 Tropic helplessness. Continue to encourage and empower patient - Subjective Interval history: Patient seen and examined. On examination, patient is resting in bed and continually complaining of "pain everywhere, even in my nose." She is continually asking for pain and anxiety medication. She states she is shaking too much to feed herself and is requesting assistance eating her breakfast. - Constitutional Vitals: Temp Pulse Resp BP Pulse Ox 98.5 F 60 14 120/65 95 07/09/16 12:22 07/09/16 12:22 07/09/16 12:22 07/09/16 12:22 07/09/16 12:22 General appearance: Present: disheveled, mild distress, A&O X 3, answers questions appropriately - Head Head exam: Present: atraumatic, normocephalic - Eye Eye exam: Present: PERRL, conjuntiva pink, sclera anicteric Pupils: Present: PERRL - Neck Neck exam general surgery: Present: supple, trachea midline. Absent: lymphadenopathy - Respiratory Respiratory exam: Present: accessory muscle use, decreased breath sounds, prolonged expiratory phase, respiratory distress. Absent: rales, rhonchi, wheezes - Cardiovascular Cardiovascular exam: Present: RRR, +S1, +S2. Absent: diastolic murmur, gallop, rubs, systolic murmur - GI/Abdominal GI/Abdominal exam: Present: normal bowel sounds, soft, no peritoneal signs. Absent: distended, tenderness - Extremities Exam Extremities exam: Present: warm, radial pulses palpable and symetrical. Absent : calf tenderness, cyanotic, pedal edema - Neurological Exam Neurological exam: Present: alert, CN II-XII intact, oriented X3, no focal deficits, strengths equal and symetr throughout. Absent: pronater drift, facial droop, speech deficit - Skin Skin exam: Present: dry, intact, pallor, warm Internal Medicine: Result - Labs CBC & Chem 7: 07/09/16 04:14 07/09/16 04:14 Labs: Short CBC 07/09/16 Range/Units 04:14 WBC 9.5 (4.3-11.1) K/mcL Hgb 11.2 L (11.5-15.4) g/dL Hct 34.8 L (35.3-44.9) % Plt Count 223 (140-400) K/mcL Neutrophils # 8.6 (1.6-8.9) K/mcL BMP 07/09/16 04:14 Sodium 139 Potassium 3.1 L D Chloride 97 L Carbon Dioxide 33 H BUN 16 Creatinine 0.88 Glucose 145 H Calcium 7.5 L D - ABG Interpretation ABG results: ABG ABG pH 7.44 pH Units (7.32-7.45) 07/08/16 11:09 ABG pCO2 64 mmHg (35-45) H 07/08/16 11:09 ABG pO2 88 mmHg (85-104) 07/08/16 11:09 ABG O2 Saturation 97 % (95-98) 07/08/16 11:09 PT/INR, D-dimer PT 13.0 Seconds (9.4-12.1) H 07/04/16 16:38 Consult Discharge Plan - Plan Referrals: NO,PCP [Primary Care Provider] -
[2016-07-09] MEDS ORDERED: Potassium Chloride 40 MEQ, Lidocaine 1% 2 ML in D5% in Water 500 ML IVPB ONE (14:24)
[2016-07-09] MEDS: *HR* LORazepam 2 MG/ML VIAL IVP PRN (19:56)
[2016-07-09] MEDS: Mirtazapine 15 MG TABLET PO SCH (19:57)
[2016-07-09] MEDS: Latanoprost 2.5 ML BOTTLE BOTH EYES SCH (19:58)
[2016-07-09] MEDS ORDERED: *HR* OxyCODONE/APAP 10/325 TABLET PO STA (21:10)
[2016-07-10] MEDS: ALPRAZolam 0.5 MG TABLET PO PRN ×2 (03:51→08:13)
[2016-07-10] MEDS: Ipratropium/Albuterol Neb 3 ML IH SCH ×6 (04:03→23:25)
[2016-07-10] MEDS: *HR* OxyCODONE Immed Rel 5 MG TABLET PO PRN (04:27)
[2016-07-10] MEDS: *HR* Heparin 5,000 UNIT/ML VIAL SQ SCH ×2 (06:45→18:04)
[2016-07-10] MEDS: Piperacillin/Tazobactam 3.375 GM in D5% in Water (Mini-Bag+) 100 ML IVPB SCH ×3 (06:45→21:59)
[2016-07-10] MEDS: Budesonide/Formoterol 160/4.5 MDI IH SCH ×2 (07:38→20:05)
[2016-07-10 08:09] LABS: Calcium 8.8 mg/dL (8.6-10.8); Magnesium 1.2 mg/dL (1.6-2.6); Potassium 4.9 mEq/L (3.5-4.5)
[2016-07-10] MEDS: Thiamine (B-1) 100 MG TABLET PO SCH (08:14)
[2016-07-10] MEDS: Ascorbic Acid 500 MG TABLET PO SCH (08:14)
[2016-07-10] MEDS: Cyanocobalamin (B-12) 1,000 MCG TABLET PO SCH (08:14)
[2016-07-10] MEDS: Famotidine 20 MG TABLET PO SCH ×2 (08:15→21:05)
[2016-07-10] MEDS: Cholecalciferol (D-3) 1,000 UNIT TABLET PO SCH (08:15)
[2016-07-10] MEDS: Aspirin Enteric Coated 81 MG Tablet PO SCH (08:15)
[2016-07-10] MEDS: MethylPREDNISolone 40 MG/ML VIAL IVP SCH ×3 (08:16→23:41)
[2016-07-10] MEDS: Furosemide 20 MG/2 ML VIAL IVP SCH (08:16)
[2016-07-10] MEDS: Metoprolol XL (24 HR) Succ 50 MG TAB.ER.24H PO SCH (08:16)
[2016-07-10] MEDS: Brinzolamide 1% 10 ML BOTTLE BOTH EYES SCH ×4 (08:17→21:06)
[2016-07-10] MEDS: Fluticasone Propionate Nasal 50 MCG/SPRAY BOTTLE NS SCH (08:18)
--- NOTE | 2016-07-10 08:43 | Cardiology Progress Note ---
Date of Encounter: 07/10/16 Time of Encounter: 09:29 Assessment and Plan (1) Acute and chronic respiratory failure Current Visit: Yes Status: Acute In the setting of CHF and pnuemonia. We will stop IV lasix d/t creatinine increase. CXR 07/08/16 showed no change in appearance. Small bilateral pleural effusions and bibasilar atelectasis. Qualifiers: Respiratory failure complication: hypercapnia Qualified Code(s): J96.22 - Acute and chronic respiratory failure with hypercapnia (2) Congestive heart failure (CHF) Current Visit: Yes Status: Acute - Echo 07/06/16 showed severe LV systolic dysfunciton with EF 20-25% Pt family reports known CMP, EF 25%. Recently seen at the [facility]. Reports ordered to compare, unfortunatly they have not been obtained. Given advanced age, immobility, and deconditioning continued medical management recommended. Stop lasix d/t creatinine increase. Hold lasix today. Consider maintenance/ home dose once creatinine improves. D/c potassium. Potassium 4.9 today. Monitor BMP. continue beta-reyna and arb. F/u with cardiology in 1-2 weeks. Call with questions. 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 Asa, statin, and beta-reyna recommended. Qualifiers: Coronary Disease-Associated Artery/Lesion type: [place] artery [place] vs. transplanted heart: [place] heart Associated angina: angina presence unspecified Qualified Code(s): I25.10 - Atherosclerotic heart disease of [place] coronary artery without angina pectoris (4) Atrial fibrillation Current Visit: Yes Status: Acute Family reported history of afib s/p PPM. She was not on anticoagulation or asa. Asa started. Awaiting records from [facility]. Currently AV paced. Telemetry review showed atrial tachycardia at 8:30 Pm with maximum HR 130 bpm. Avg HR was 86 bpm over 24 hours. Continue metoprolol. Continue asa. In the setting of decreased mobility increasing fall risk and multiple ulcers pt is not a good candidate for AC. Qualifiers: Atrial fibrillation type: unspecified Qualified Code(s): I48.91 - Unspecified atrial fibrillation Discussion w patient/family: The assessment and plan as outlined above was discussed with the patient and/or family members who expressed understanding and agreement. All questions were answered. Thank you for involving us in the care of your patient. Please call with any questions. Subjective Principal diagnosis: Acute on chronic respiratory failure Interval history: Pt resting quietly in bed. Reports symptoms unchanged. Continues to have SOB at rest. C/o pain all over. She voiced concerns of not taking enough percocet for her pain. Nurse notified that pt requesting pain medication. Objective Vital Signs, Last 4 Hours Temp Pulse Resp BP Pulse Ox 07/10/16 08:22 98.5 F 106 16 154/81 90 L General: Conversant, Other (anxious) HEENT: Atraumatic, Normocephaly, Mucus Membranes Moist Neck: No JVD, Normal carotid pulses Cardiac: Reg Rate and Rhythm, Normal S1 and S2, No Murmur Lungs: Other (rales noted in RLL, better airmovement than yeaterday) Neuro: Alert and responsive, No focal deficits noted, Other (Foot drop noted. Moves all extremities.) Abdomen: Soft, Non-Tender Skin: Other (Multiple lesions on legs and arms. ) Musculoskeletal: No Chest Wall Tenderness Extremities: No Clubbing, No Cyanosis, Normal Pulses, Other (RLE with edema. Multiple skin ulcers. ) Results 07/09/16 04:14 07/10/16 06:01 Lab Results 07/10/16 06:01 Sodium 136 Potassium 4.9 H D Chloride 92 L Carbon Dioxide 22 BUN 23 H Creatinine 1.45 H D Glucose 139 H Calcium 8.8 D Magnesium 1.2 L - EKG Interpretation EKG results cardiology: other (24 hour telemetry review shows atrial pacing with SR and PAC underlying.) Consult Discharge Plan - Plan Referrals: NO,PCP [Primary Care Provider] - Prescriptions: Bed - Hospital [Hospital Bed] 1 each .ROUTE AD #1 each Oxygen 3 l IN CONT #1 each
[2016-07-10] MEDS ORDERED: *HR* OxyCODONE/APAP 10/325 TABLET PO PRN ×2 (09:39→09:51)
--- NOTE | 2016-07-10 10:15 | Palliative Progress Note ---
<Jose Manuel Parsons - Last Filed: 07/10/16 10:21> Date of Encounter: 07/10/16 Time of Encounter: 10:08 - Assessment and plan (1) Chronic pain Current Visit: Yes Status: Chronic Assessment and plan: Changed roxicodone 10mg to percocet 10/325 mg. Patient requested this as she takes percocet 10/325 mg at home. She was counseled about usage of Tylenol in pain medication, but she stated she wanted her percocet anyway. Oxycodone 10/325mg q4h PRN. Qualifiers: Chronic pain type: other chronic pain Qualified Code(s): G89.29 - Other chronic pain (2) Constipation Current Visit: Yes Status: Resolved Assessment and plan: Currently stable. Laxatives d/c'd as she is still having some loose stools from recent laxative use. Qualifiers: Constipation type: slow transit constipation Qualified Code(s): K59.01 - Slow transit constipation (3) Goals of care, counseling/discussion Current Visit: Yes Status: Acute Assessment and plan: No change in goals. Full code status remains. Pt. has no questions this am regarding code status or goals of care. (4) Functional quadriplegia Current Visit: Yes Status: Chronic Assessment and plan: appears to be at her baseline. - Time Spent With Patient Total time spent is greater than 50% in coordination of care (as documented) at patient's floor/unit and/or counseling patient: - Subjective Interval history: Patient seen and examined. Laying in bed and appears to be in distress. She is complaining that the new pain medicine she was switched to yesterday, roxicodone 10mg, is not what she usually takes at home and she does not like it. She is requesting percocet 10mg/325mg. She was advised that the percocet has tylenol which could cause her damage to her liver, but she stated she still wanted her percocet. She had two loose stools yesterday. Will continue to hold laxatives. No other complaints at this time. - Constitutional Vitals: Abnormal lab results RBC 3.65 M/mcL (3.82-4.97) L 07/09/16 04:14 Hgb 11.2 g/dL (11.5-15.4) L 07/09/16 04:14 Hct 34.8 % (35.3-44.9) L 07/09/16 04:14 Lymphocytes # 0.4 K/mcL (0.6-4.6) L 07/09/16 04:14 PT 13.0 Seconds (9.4-12.1) H 07/04/16 16:38 ABG pCO2 64 mmHg (35-45) H 07/08/16 11:09 ABG HCO3 43.5 mEQ/L (21-27) H 07/08/16 11:09 ABG Total CO2 45.5 mEq/L (20-26) H 07/08/16 11:09 ABG Base Excess 16.2 mEq/L (-2.0 to 3.0) H 07/08/16 11:09 Potassium 4.9 mEq/L (3.5-4.5) H D 07/10/16 06:01 Chloride 92 mEq/L (98-109) L 07/10/16 06:01 BUN 23 mg/dL (7-20) H 07/10/16 06:01 Creatinine 1.45 mg/dL (0.57-1.11) H D 07/10/16 06:01 Est GFR ( Amer) 42 (> 60) L 07/10/16 06:01 Est GFR (Non-Af Amer) 34 (> 60) L 07/10/16 06:01 Glucose 139 mg/dL (70-99) H 07/10/16 06:01 Magnesium 1.2 mg/dL (1.6-2.6) L 07/10/16 06:01 Alkaline Phosphatase 172 Units/L (38-126) H 07/04/16 16:38 Ammonia 13 mcmol/L (18-72) L 07/04/16 16:38 Albumin 2.1 g/dL (3.5-5.0) L 07/06/16 18:12 Globulin 4.2 g/dL (2.4-3.5) H 07/04/16 16:38 Albumin/Globulin Ratio 0.5 (1.1-2.2) L 07/04/16 16:38 Vitamin B12 > 2000 pg/mL (213-816) H 07/06/16 18:12 Urine Clarity Cloudy (Clear) A 07/04/16 18:52 Ur Leukocyte Esterase Large (Negative) H 07/04/16 18:52 Urine Microscopic WBC TNTC per hpf (0-3) H 07/04/16 18:52 Urine Yeast Moderate per hpf (None Seen) H 07/04/16 18:52 Ur Culture Indicated? YES (NO) A 07/04/16 18:52 Vancomycin Trough 22.3 mcg/mL (10-20) H* 07/07/16 00:00 General appearance: Present: disheveled, mild distress - Respiratory Respiratory exam: Present: rales - Cardiovascular Cardiovascular exam: Present: RRR - GI/Abdominal GI/Abdominal exam: Present: normal bowel sounds - Neurological Exam Neurological exam: Present: alert, oriented X3 Palliative Quality Palliative Quality: Screen for Code Status: Yes, Screen for Goals of Care: Yes, Screen for Pain: Yes, If Pain Regimen Started, Initiate Bowel Regimen: No (hold bowel regimen d/t diarrhea), Screen for Nausea/Vomitting: Yes - Labs CBC & Chem 7: 07/09/16 04:14 07/10/16 06:01 Labs: Laboratory Results - last 24 hr 07/10/16 06:01 Sodium 136 Potassium 4.9 H D Chloride 92 L Carbon Dioxide 22 BUN 23 H Creatinine 1.45 H D Est GFR ( Amer) 42 L Est GFR (Non-Af Amer) 34 L BUN/Creatinine Ratio 16 Glucose 139 H Calculated Osmolality 288 Calcium 8.8 D Magnesium 1.2 L - ABG Interpretation ABG results: ABG ABG pH 7.44 pH Units (7.32-7.45) 07/08/16 11:09 ABG pCO2 64 mmHg (35-45) H 07/08/16 11:09 ABG pO2 88 mmHg (85-104) 07/08/16 11:09 ABG O2 Saturation 97 % (95-98) 07/08/16 11:09 PT/INR, D-dimer PT 13.0 Seconds (9.4-12.1) H 07/04/16 16:38 Consult Discharge Plan - Plan Referrals: NO,PCP [Primary Care Provider] - Prescriptions: Bed - Hospital [Hospital Bed] 1 each .ROUTE AD #1 each Oxygen 3 l IN CONT #1 each <Orlin Burrows L - Last Filed: 07/10/16 13:01> Date of Encounter: 07/10/16 - Time Spent With Patient Total time spent is greater than 50% in coordination of care (as documented) at patient's floor/unit and/or counseling patient: - Constitutional Vitals: Abnormal lab results RBC 3.65 M/mcL (3.82-4.97) L 07/09/16 04:14 Hgb 11.2 g/dL (11.5-15.4) L 07/09/16 04:14 Hct 34.8 % (35.3-44.9) L 07/09/16 04:14 Lymphocytes # 0.4 K/mcL (0.6-4.6) L 07/09/16 04:14 PT 13.0 Seconds (9.4-12.1) H 07/04/16 16:38 ABG pCO2 64 mmHg (35-45) H 07/08/16 11:09 ABG HCO3 43.5 mEQ/L (21-27) H 07/08/16 11:09 ABG Total CO2 45.5 mEq/L (20-26) H 07/08/16 11:09 ABG Base Excess 16.2 mEq/L (-2.0 to 3.0) H 07/08/16 11:09 Potassium 4.9 mEq/L (3.5-4.5) H D 07/10/16 06:01 Chloride 92 mEq/L (98-109) L 07/10/16 06:01 BUN 23 mg/dL (7-20) H 07/10/16 06:01 Creatinine 1.45 mg/dL (0.57-1.11) H D 07/10/16 06:01 Est GFR ( Amer) 42 (> 60) L 07/10/16 06:01 Est GFR (Non-Af Amer) 34 (> 60) L 07/10/16 06:01 Glucose 139 mg/dL (70-99) H 07/10/16 06:01 Magnesium 1.2 mg/dL (1.6-2.6) L 07/10/16 06:01 Alkaline Phosphatase 172 Units/L (38-126) H 07/04/16 16:38 Ammonia 13 mcmol/L (18-72) L 07/04/16 16:38 Albumin 2.1 g/dL (3.5-5.0) L 07/06/16 18:12 Globulin 4.2 g/dL (2.4-3.5) H 07/04/16 16:38 Albumin/Globulin Ratio 0.5 (1.1-2.2) L 07/04/16 16:38 Vitamin B12 > 2000 pg/mL (213-816) H 07/06/16 18:12 Urine Clarity Cloudy (Clear) A 07/04/16 18:52 Ur Leukocyte Esterase Large (Negative) H 07/04/16 18:52 Urine Microscopic WBC TNTC per hpf (0-3) H 07/04/16 18:52 Urine Yeast Moderate per hpf (None Seen) H 07/04/16 18:52 Ur Culture Indicated? YES (NO) A 07/04/16 18:52 Vancomycin Trough 22.3 mcg/mL (10-20) H* 07/07/16 00:00 - Attending Attestation I examined this patient and my medical decision-making was reviewed with the TOBACCO HANGER/PA/Advanced Practice Nurse/Resident Physician. I agree with the documented findings, disposition and treatment plan as described except to the extent set forth below. - Labs CBC & Chem 7: 07/09/16 04:14 07/10/16 06:01 Labs: Laboratory Results - last 24 hr 07/10/16 06:01 Sodium 136 Potassium 4.9 H D Chloride 92 L Carbon Dioxide 22 BUN 23 H Creatinine 1.45 H D Est GFR ( Amer) 42 L Est GFR (Non-Af Amer) 34 L BUN/Creatinine Ratio 16 Glucose 139 H Calculated Osmolality 288 Calcium 8.8 D Magnesium 1.2 L - ABG Interpretation ABG results: ABG ABG pH 7.44 pH Units (7.32-7.45) 07/08/16 11:09 ABG pCO2 64 mmHg (35-45) H 07/08/16 11:09 ABG pO2 88 mmHg (85-104) 07/08/16 11:09 ABG O2 Saturation 97 % (95-98) 07/08/16 11:09 PT/INR, D-dimer PT 13.0 Seconds (9.4-12.1) H 07/04/16 16:38
[2016-07-10] MEDS ORDERED: ALPRAZolam 0.5 MG TABLET PO PRN (10:42)
[2016-07-10] MEDS ORDERED: 0.9 % Sodium Chloride 1,000 ML IVC SCH ×2 (10:45)
--- NOTE | 2016-07-10 10:50 | Internal Med Progress Note ---
Date of Encounter: 07/10/16 Time of Encounter: 10:00 - Assessment and plan (1) Goals of care, counseling/discussion Current Visit: Yes Status: Acute Assessment and plan: Palliative on board. Patient has made it very clear to me that her main concern is controlling her pain and anxiety yet she still wants to remain a full code. Quite the dichotomy. She states that she does not want to suffer anymore. She states she does not want to be in pain, she does want to not shake , and she does not want to be anxious. She again states that she wants everything done for her including CPR and intubation should the need arise. At this point, will transition to keeping her comfortable even though she wants to remain a full code. Patient is continually talking about Xanax and Percocet and is unable/unwilling to answer any other questions unrelated to Percocet and Xanax. Her Percocet 10 will be scheduled every 6 hours and her Xanax 1 mg will be scheduled 3 times a day. This should hopefully alleviate her main concerns so that we can address other issues i.e. respiratory status and by mouth intake. OARRS report in [place] negative, suspect control substances still prescribed from [place] given her recent move. We did verify that she takes 1 mg of Xanax 3 times a day with her pharmacy. Monitor closely for over sedation and respiratory depression. I have explained to her extensively that this is a concern but the patient stating that she still wants her Xanax and Percocet and wants to be comfortable. (2) Acute and chronic respiratory failure Current Visit: Yes Status: Acute Assessment and plan: Aeration much improved today. Patient has no longer required BiPAP. Respirations even and unlabored. Fair to good aeration throughout. Patient was unwilling to answer whether or not she was short of breath as the only topic she would be willing to discuss was that of her pain medication. She is on 4-5 L per nasal cannula. 07/09/16 Patient is currently requiring 3 L per nasal cannula continuously. Aeration much improved today. Respirations are even and mildly labored. Patient has not needed BiPAP since yesterday morning, suspect acute fluid overload secondary to albumin administration which has since resolved. She was also started on Solu-Medrol yesterday. Plan is for the patient to return back to her prior living situation as early as tomorrow pending clinical outcomes. Patient continually complaining of pain, her home oxycodone 10 mg every 4 hours has been continued at every 3 hours as needed. I had a realistic conversation with the patient this morning regarding pain management. She is aware that her pain cannot be completely alleviated but can be at a more tolerable level. 07/08/16 Patient is on 2.5 L continuously at home. On examination, poor aeration with absent breath sounds noted and moderate to severe respiratory distress. Patient stating she currently feels as if she is dying. BiPAP stat. IV Ativan as the patient is having a panic attack. We will monitor closely. Full CODE STATUS. Continue Zosyn for suspected pneumonia of unknown etiology. Albumin has also been stopped as she could be experiencing fluid overload and an adverse reaction given her severe systolic heart failure. ITS Impressions Chest X-Ray 07/04/16 19:19 IMPRESSION: Large amount of consolidative airspace disease of the left lung base, nonspecific but most likely atelectasis or pneumonia. Moderate amount right basilar atelectasis versus pneumonia Mild diffuse interstitial edema. Given the cardiac enlargement CHF is considered D/ / Castillo Begum MD / Castillo Begum MD Interpreting Provider: Castillo Begum MD Chest X-Ray 07/06/16 08:53 IMPRESSION: CHF, unchanged. D/ / Michael West MD / Michael West MD Interpreting Provider: Michael West MD (3) Anxiety Current Visit: Yes Status: Chronic Assessment and plan: Severe and uncontrolled. We have verified with her pharmacy that she takes 1 mg of Xanax 3 times a day, scheduled at this time as the patient's anxiety is severe and uncontrolled and she is continually asking for more Xanax and more Percocet. 07/09/16 Takes Xanax 3 times a day at home as needed. Patient had a panic attack yesterday which resolved with IV Ativan. Will not attempt to wean this end- stage COPD with severe heart failure 86-year-old off Xanax as it is not clinically indicated. (4) Pneumonia Current Visit: Yes Status: Acute Assessment and plan: Continue Zosyn. Unknown etiology. Aeration improving. ITS Impressions Chest X-Ray 07/04/16 19:19 IMPRESSION: Large amount of consolidative airspace disease of the left lung base, nonspecific but most likely atelectasis or pneumonia. Moderate amount right basilar atelectasis versus pneumonia Mild diffuse interstitial edema. Given the cardiac enlargement CHF is considered D/ / Castillo Begum MD / Castillo Begum MD Interpreting Provider: Castillo Begum MD Chest X-Ray 07/06/16 08:53 IMPRESSION: CHF, unchanged. D/ / Michael West MD / Michael West MD Interpreting Provider: Michael West MD Qualifiers: Pneumonia type: due to unspecified organism Laterality: left Lung location: unspecified part of lung Qualified Code(s): J18.9 - Pneumonia, unspecified organism (5) Altered mental status Current Visit: Yes Status: Resolved Assessment and plan: Patient alert and oriented 3 during my interaction Qualifiers: Altered mental status type: unspecified Qualified Code(s): R41.82 - Altered mental status, unspecified (6) COPD (chronic obstructive pulmonary disease) Current Visit: Yes Status: Chronic Assessment and plan: Aeration much improved today. Continue Solu-Medrol. She has not required BiPAP in 2 days 07/08/16 Treating for pneumonia, CHF overload. Does not appear to be an acute exacerbation of COPD however aeration poor, will initiate Solu-Medrol and monitor closely. Qualifiers: COPD type: unspecified COPD Qualified Code(s): J44.9 - Chronic obstructive pulmonary disease, unspecified (7) Chronic pain Current Visit: Yes Status: Chronic Qualifiers: Chronic pain type: other chronic pain Qualified Code(s): G89.29 - Other chronic pain (8) Congestive heart failure (CHF) Current Visit: Yes Status: Acute Assessment and plan: Euvolemic/slightly dehydrated on examination. Gentle IVF. Lasix held. MU overnight. 07/09/16 Patient was likely overloaded yesterday with albumin which was stopped. She was also given extra Lasix. Aeration much improved today. She has not needed BiPAP since yesterday morning. 07/08/16 Echocardiogram revealing ejection fraction of 25-30% with indeterminate diastolic dysfunction. Cardiology is on board. Suspect acute on chronic systolic heart failure. Possibly combined heart failure given that she was on Lasix at home. She appears to be having an adverse reaction to albumin, this has been stopped. Echocardiogram impressions: LVEF 25-30%. No pulmonary hypertension. Severe global left ventricle systolic dysfunction. No severe valvular dysfunction. (9) Constipation Current Visit: Yes Status: Resolved Assessment and plan: Resolved Qualifiers: Constipation type: slow transit constipation Qualified Code(s): K59.01 - Slow transit constipation (10) DVT prophylaxis Current Visit: Yes Status: Acute Assessment and plan: Subcutaneous heparin (11) Depression Current Visit: Yes Status: Chronic Assessment and plan: denies SI Qualifiers: Depression Type: unspecified Qualified Code(s): F32.9 - Major depressive disorder, single episode, unspecified (12) Functional quadriplegia Current Visit: Yes Status: Chronic Assessment and plan: Has 24-hour care at home. Palliative is on board. She is currently a full code. She has been bedridden for several years. OT and PT without recommendations given her bedridden status. Plan is for her to return home with her [id number] care. Was going to possibly DC today, however MU overnight needs addressed prior to dispo. Likely discharge tomorrow pending clinical outcomes and respiratory status. (13) Hypertension Current Visit: Yes Status: Chronic Assessment and plan: Controlled, Continue toprol xl and prn hydralazine (have not had to use hydralazine thus far). Qualifiers: Hypertension type: essential hypertension Qualified Code(s): I10 - Essential (primary) hypertension (14) Hypokalemia Current Visit: Yes Status: Resolved Assessment and plan: Now hyperkalemic likely secondary to acute kidney injury overnight, gentle IV fluids and recheck in a.m. (15) Physical deconditioning Current Visit: Yes Status: Acute Assessment and plan: Patient has been bedridden for 2 years. She receives around the clock care at home. It would not be beneficial at this time the wean the patient off the Xanax given her end-stage COPD and severe heart failure. OT and PT has no services to offer given that she is bedridden. Plan is to return her back home pending clinical outcomes. (16) Pressure ulcer of back Current Visit: Yes Status: Chronic Assessment and plan: Present on admission, continue Uribe sorb and foam dressing changes and frequent turning Qualifiers: Pressure ulcer stage: stage 2 Qualified Code(s): L89.102 - Pressure ulcer of unspecified part of back, stage 2 (17) UTI (urinary tract infection) Current Visit: Yes Status: Ruled-out Assessment and plan: Ruled out. Urine culture negative. Qualifiers: Urinary tract infection type: site unspecified Hematuria presence: without hematuria Qualified Code(s): N39.0 - Urinary tract infection, site not specified (18) Inadequate dietary caloric intake Current Visit: Yes Status: Acute Assessment and plan: Per nutritional report, patient with an adequate food/beverage intake related to depression, functional decline AE BPO and takes less than 25%. 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 Cleona helplessness. Continue to encourage and empower patient. Patient is stating that she lost her on 06/25/15 and shortly thereafter she was unable to walk. Progressively more dependent upon others since that time. (20) MU (acute kidney injury) Current Visit: Yes Status: Acute Assessment and plan: Over diuresed overnight, gentle IV fluids, recheck tomorrow morning and likely discharge if improved. - Time Spent With Patient Greater than 35 minutes - Subjective Interval history: Patient seen and examined. On examination, patient is alert and oriented 3 and resting in bed and continually requesting that her medication be changed to Percocet 10 mg. She states that she is shaky all over and is miserable. She is endorsing severe pain. - Constitutional Vitals: Temp Pulse Resp BP Pulse Ox 98.5 F 106 16 154/81 90 L 07/10/16 08:22 07/10/16 08:22 07/10/16 08:22 07/10/16 08:22 07/10/16 08:22 General appearance: Present: disheveled, A&O X 3, no acute distress, answers questions appropriately - Head Head exam: Present: atraumatic, normocephalic - Eye Eye exam: Present: PERRL, conjuntiva pink, sclera anicteric Pupils: Present: PERRL - Neck Neck exam general surgery: Present: supple, trachea midline. Absent: lymphadenopathy - Respiratory Respiratory exam: Present: decreased breath sounds. Absent: accessory muscle use, rales, respiratory distress, rhonchi, wheezes - Cardiovascular Cardiovascular exam: Present: RRR, +S1, +S2. Absent: diastolic murmur, gallop, rubs, systolic murmur - GI/Abdominal GI/Abdominal exam: Present: normal bowel sounds, soft, no peritoneal signs. Absent: distended, tenderness - Extremities Exam Extremities exam: Present: warm, radial pulses palpable and symetrical. Absent : calf tenderness, cyanotic, pedal edema - Neurological Exam Neurological exam: Present: alert, CN II-XII intact, oriented X3, no focal deficits, strengths equal and symetr throughout. Absent: pronater drift, facial droop, speech deficit - Skin Skin exam: Present: dry, intact, pallor, warm Internal Medicine: Result - Labs CBC & Chem 7: 07/09/16 04:14 07/10/16 06:01 Labs: BMP 07/10/16 06:01 Sodium 136 Potassium 4.9 H D Chloride 92 L Carbon Dioxide 22 BUN 23 H Creatinine 1.45 H D Glucose 139 H Calcium 8.8 D - ABG Interpretation ABG results: ABG ABG pH 7.44 pH Units (7.32-7.45) 07/08/16 11:09 ABG pCO2 64 mmHg (35-45) H 07/08/16 11:09 ABG pO2 88 mmHg (85-104) 07/08/16 11:09 ABG O2 Saturation 97 % (95-98) 07/08/16 11:09 PT/INR, D-dimer PT 13.0 Seconds (9.4-12.1) H 07/04/16 16:38 Consult Discharge Plan - Plan Referrals: NO,PCP [Primary Care Provider] - Prescriptions: Bed - Hospital [Hospital Bed] 1 each .ROUTE AD #1 each Oxygen 3 l IN CONT #1 each
[2016-07-10] MEDS: Magnesium Oxide 400 MG TABLET PO SCH ×2 (11:43→21:05)
[2016-07-10] MEDS: ALPRAZolam 0.5 MG TABLET PO SCH ×3 (11:43→21:05)
[2016-07-10] MEDS: *HR* OxyCODONE/APAP 10/325 TABLET PO SCH ×4 (11:44→23:40)
[2016-07-10] MEDS: Silvasorb 44.4 ML TUBE TP SCH (11:44)
--- NOTE | 2016-07-10 13:45 | Event Note ---
Date of Encounter: 07/10/16 Time of Encounter: 13:15 I heard screaming coming from the patient's room and I stepped in. The patient' s grandson, Sebastian Benz, had shown up to demand money from the patient. Patient bought him a 40,000 dollar car for [employer] and he was demanding turner to pay for the incsurance. Patient stated she wanted to call the insurance company to ask why she could not write a check, and Sebastian escalated. The patient became upset and told Sebastian to leave. Her other grandson, Cm, was present and was very supportive of her. Security was called and Sebastian was escorted out and instructed not to return. Patient visibly shaking after incident, but otherwise doing okay. Will continue to monitor her. Aeration remains fair to good with mild respiratory distress noted. Patient appears much more alert and interactive than she did this morning. Patient has received her Percocet 10 and her Ativan as she requested however now she states that we gave her the wrong Percocet tens.
[2016-07-10] MEDS: Nystatin SUSP 5 ML UD.LIQ PO SCH ×2 (18:02→21:05)
[2016-07-10] MEDS: Vancomycin 1,250 MG in D5% in Water 250 ML IVPB SCH (19:58)
[2016-07-10] MEDS: Mirtazapine 15 MG TABLET PO SCH (21:04)
[2016-07-10] MEDS: Latanoprost 2.5 ML BOTTLE BOTH EYES SCH (21:11)
[2016-07-10] MEDS: Menthol 9.1 MG LOZENGE PO PRN (23:41)
[2016-07-11] MEDS: Ipratropium/Albuterol Neb 3 ML IH SCH ×4 (03:35→15:17)
[2016-07-11] MEDS: Piperacillin/Tazobactam 3.375 GM in D5% in Water (Mini-Bag+) 100 ML IVPB SCH (05:11)
[2016-07-11] MEDS: *HR* Heparin 5,000 UNIT/ML VIAL SQ SCH (05:12)
[2016-07-11] MEDS: *HR* OxyCODONE/APAP 10/325 TABLET PO SCH ×2 (05:12→11:59)
[2016-07-11 06:31] LABS: Calcium 8.1 mg/dL (8.6-10.8); Magnesium 1.2 mg/dL (1.6-2.6)
[2016-07-11 06:38] LABS: Potassium 4.2 mEq/L (3.5-4.5)
[2016-07-11] MEDS: Budesonide/Formoterol 160/4.5 MDI IH SCH (07:55)
[2016-07-11] MEDS: Nystatin SUSP 5 ML UD.LIQ PO SCH ×2 (08:00→12:02)
[2016-07-11] MEDS: Ascorbic Acid 500 MG TABLET PO SCH (08:01)
[2016-07-11] MEDS: Fluticasone Propionate Nasal 50 MCG/SPRAY BOTTLE NS SCH (08:01)
[2016-07-11] MEDS: Magnesium Oxide 400 MG TABLET PO SCH (08:02)
[2016-07-11] MEDS: Aspirin Enteric Coated 81 MG Tablet PO SCH (08:02)
[2016-07-11] MEDS: Cholecalciferol (D-3) 1,000 UNIT TABLET PO SCH (08:02)
[2016-07-11] MEDS: Thiamine (B-1) 100 MG TABLET PO SCH (08:02)
[2016-07-11] MEDS: MethylPREDNISolone 40 MG/ML VIAL IVP SCH (08:02)
[2016-07-11] MEDS: ALPRAZolam 0.5 MG TABLET PO SCH ×2 (08:02→13:01)
[2016-07-11] MEDS: Famotidine 20 MG TABLET PO SCH (08:02)
[2016-07-11] MEDS: Metoprolol XL (24 HR) Succ 50 MG TAB.ER.24H PO SCH (08:02)
[2016-07-11] MEDS: Cyanocobalamin (B-12) 1,000 MCG TABLET PO SCH (08:02)
[2016-07-11] MEDS: Brinzolamide 1% 10 ML BOTTLE BOTH EYES SCH ×2 (08:03→12:01)
[2016-07-11 11:15] VITALS: BP 156/78
[2016-07-11] MEDS: Silvasorb 44.4 ML TUBE TP SCH (12:08)
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
--- NOTE | 2016-07-11 15:24 | Physician Discharge Referral ---
Home Health/Hosp Referral Info Transfer to: Home Health Attending Provider: Eleanor Pugh CNP Provider in Charge Post Discharge: PCP - Diagnosis (1) Goals of care, counseling/discussion Priority: Primary Status: Acute (2) Acute and chronic respiratory failure Priority: Primary Status: Acute (3) Anxiety Priority: Secondary Status: Chronic (4) Pneumonia Priority: Primary Status: Resolved (5) Altered mental status Priority: Primary Status: Resolved (6) COPD (chronic obstructive pulmonary disease) Priority: Secondary Status: Chronic (7) Chronic pain Priority: Secondary Status: Chronic (8) Congestive heart failure (CHF) Priority: Primary Status: Acute (9) Constipation Priority: Primary Status: Resolved (10) DVT prophylaxis Priority: Primary Status: Acute (11) Depression Priority: Secondary Status: Chronic (12) Functional quadriplegia Priority: Secondary Status: Chronic (13) Hypertension Priority: Secondary Status: Chronic (14) Hypokalemia Priority: Primary Status: Resolved (15) Physical deconditioning Priority: Primary Status: Acute (16) Pressure ulcer of back Priority: Secondary Status: Chronic (17) UTI (urinary tract infection) Priority: Primary Status: Ruled-out (18) Inadequate dietary caloric intake Priority: Primary Status: Acute (19) Dependence on caregiver Priority: Secondary Status: Chronic (20) MU (acute kidney injury) Priority: Primary Status: Acute - Respiratory Orders Oxygen / L per min (3) Smoking Cessation: Smoking cessation has been advised. For more information, call the [place] Tobacco Quit Line at 7-448-DWMT-NOW. - Diet/Nutrition Diet/Nutrition Orders: No Added Salt (LENORE), No Concentrated Sweets - Activity Activity Orders: Bedrest - Services Needed Following services are medically necessary services: Nursing, Home Health Aide, Physical Therapy, Occupational Therapy - Transfer Medications Prescriptions: OxyCODONE/APAP 10/325 [Percocet 10/325 MG] 1 each PO Q6HR PRN #30 tablet PRN Reason: Pain Alprazolam [Xanax 1 MG Tablet] 1 mg PO TID PRN #21 tablet PRN Reason: Anxiety Aspirin Enteric Coated [Aspirin EC] 81 mg PO DAILY #30 tablet. Atorvastatin [Lipitor] 40 mg PO HS #30 tablet Bed - Hospital [Hospital Bed] 1 each .ROUTE AD #1 each GuaiFENesin ER [Mucinex] 600 mg PO BID #10 tbbp.12hr Magnesium Oxide [Mag-Ox] 400 mg PO BID #28 tablet Oxygen 3 l IN CONT #1 each PredniSONE 10 mg PO DAILY #56 tablet Silvasorb 1 appl TP DAILY #1 tube Home Medications: Ascorbic Acid [Vitamin C] 1,000 mg PO DAILY 07/04/16 [History] Brimonidine Tartrate/Timolol [Combigan 0.2%-0.5% Eye Drops] 1 drop BOTH EYES BID 07/04/16 [History] Brinzolamide 1% [Azopt] 1 drop BOTH EYES QID 07/04/16 [History] Candesartan Cilexetil [Atacand] 4 mg PO DAILY 07/04/16 [History] Cholecalciferol (D-3) [Vitamin D] 1,000 unit PO DAILY 07/04/16 [History] Cyanocobalamin (Vitamin B-12) [Vitamin B12] 1,000 mcg PO DAILY 07/04/16 [History ] Cyclosporine [Restasis] 1 each BOTH EYES BID 07/04/16 [History] Docusate [Colace] 100 mg PO BID 07/04/16 [History] Ferrous Sulfate 325 mg PO DAILY 07/04/16 [History] Fluticasone Propionate Nasal [Flonase] 100 mcg NS DAILY 07/04/16 [History] Fluticasone/Salmeterol [Advair 250-50 Diskus] 1 each IH BID 07/04/16 [History] Furosemide [Lasix] 20 mg PO DAILY 07/04/16 [History] Latanoprost [Xalatan] 1 drop BOTH EYES HS 07/04/16 [History] Levalbuterol HCl [Xopenex Neb] 1.25 mg IH QID 07/04/16 [History] Levothyroxine [Synthroid] 100 mcg PO DAILY 07/04/16 [History] Metoprolol XL (24 HR) Succ [Toprol Xl] 50 mg PO DAILY 07/04/16 [History] Nitroglycerin 0.3 mg SL Q5MIN PRN 07/04/16 [History] Nystatin/Triamcinolone CRM [Mycolog] 1 appl TP Q48H 07/04/16 [History] Omeprazole/Sodium Bicarbonate [Zegerid 40 mg Capsule] 1 each PO DAILY 07/04/16 [ History] Oxycodone HCl/Acetaminophen [Percocet 10-325 mg Tablet] 1 each PO Q4H PRN [History] Sertraline [Zoloft] 50 mg PO DAILY 07/04/16 [History] Sodium Chloride for inhalation [Nebusal] 4 ml IH BID 07/04/16 [History] Ubidecarenone [Coenzyme Q10] 200 mg PO DAILY 07/04/16 [History] Vit C/E/Zn/Coppr/Lutein/Zeaxan [Preservision Areds 2 Softgel] 2 cap PO DAILY 06/08 [History] Bed - Hospital [Hospital Bed] 1 each .ROUTE AD #1 each 07/09/16 [Rx] Alprazolam [Xanax 1 MG Tablet] 1 mg PO TID PRN #21 tablet 07/11/16 [Rx] Aspirin Enteric Coated [Aspirin EC] 81 mg PO DAILY #30 tablet. 07/11/16 [Rx] Atorvastatin [Lipitor] 40 mg PO HS #30 tablet 07/11/16 [Rx] GuaiFENesin ER [Mucinex] 600 mg PO BID #10 tbbp.12hr 07/11/16 [Rx] Magnesium Oxide [Mag-Ox] 400 mg PO BID #28 tablet 07/11/16 [Rx] OxyCODONE/APAP 10/325 [Percocet 10/325 MG] 1 each PO Q6HR PRN #30 tablet [Rx] Oxygen 3 l IN CONT #1 each 07/11/16 [Rx] PredniSONE 10 mg PO DAILY #56 tablet 07/11/16 [Rx] Silvasorb 1 appl TP DAILY #1 tube 07/11/16 [Rx] Allergies/Adverse Reactions: Allergies escitalopram [From Lexapro] Allergy (Verified 07/04/16 15:41) See Comments sulfamethoxazole [From Bactrim] Allergy (Verified 07/04/16 15:41) See Comments trimethoprim [From Bactrim] Allergy (Verified 07/04/16 15:41) See Comments Certification: Further, I certify that my clinical findings support that this patient is homebound (i.e. absences from home require considerable and taxing effort and are for medical reasons or roman catholic services or infrequently or short duration when for other reasons) because: Homebound Reason: Patient requires assistance of a person or device to safely leave home, Leaving home requires considerable and taxing effort due to condition, Severity of cardiac or pulmonary status limits activity tolerance Attestation: My signature below is to certify that this patient is under my care and that I, or nurse practitioner, or a physician's social worker assistant working with me, has a face-to -face encounter with this patient.
== END 2016-07-11 15:49 | disposition home health service (06) | DRG 190 ==
LOC: 3BNU 15:36 → EMEROO 15:36 → SUATTDRO 22:07 → 3BNU 22:10
PROVIDERS: ADMIT Nurse Practitioner Family; ATTEND Nurse Practitioner Family

== ENCOUNTER 2016-07-23 14:28 | Inpatient (IN) ==
[2016-07-23] MEDS ORDERED: Ipratropium/Albuterol Neb 3 ML IH ONE (14:33)
--- NOTE | 2016-07-23 15:27 | Emergency Department Note ---
Disposition Clinical Impression: HCAP (healthcare-associated pneumonia), CHF (congestive heart failure), Elevated troponin Disposition: Admitted As Inpatient Referrals: NO,PCP [Primary Care Provider] - Forms: ED Satisfaction Letter SOB HPI - General Chief Complaint: ED Shortness of Breath/Dyspnea Stated Complaint: AMS/SOB Time Seen by Provider: 07/23/16 14:31 Source: EMS Limitations: altered mental status Nursing Notes Reviewed: Yes Vital Signs Reviewed: Yes - History of Present Illness Patient presents with complaint of mental status. Per family report patient has been acting altered mental for 1-2 days. Patient also complains of shortness of breath. Patient admits to subjective fevers and chills. Patient denies chest pain. Patient denies numbness or tingling. Patient complains of weakness and decreased appetite. - Related Data Home Medications Medication Instructions Recorded Confirmed Ascorbic Acid [Vitamin C] 1,000 mg PO DAILY 07/04/16 07/23/16 Brimonidine Tartrate/Timolol 1 drop BOTH EYES BID 07/04/16 07/23/16 [Combigan 0.2%-0.5% Eye Drops] Brinzolamide 1% [Azopt] 1 drop BOTH EYES QID 07/04/16 07/23/16 Candesartan Cilexetil [Atacand] 4 mg PO DAILY 07/04/16 07/23/16 Cholecalciferol (D-3) [Vitamin D] 1,000 unit PO DAILY 07/04/16 07/23/16 Cyanocobalamin (Vitamin B-12) 1,000 mcg PO DAILY 07/04/16 07/23/16 [Vitamin B12] Cyclosporine [Restasis] 1 each BOTH EYES BID 07/04/16 07/23/16 Docusate [Colace] 100 mg PO BID 07/04/16 07/23/16 Ferrous Sulfate 325 mg PO DAILY 07/04/16 07/23/16 Fluticasone Propionate Nasal 100 mcg NS DAILY 07/04/16 07/23/16 [Flonase] Fluticasone/Salmeterol [Advair 1 each IH BID 07/04/16 07/23/16 250-50 Diskus] Furosemide [Lasix] 20 mg PO DAILY 07/04/16 07/23/16 Latanoprost [Xalatan] 1 drop BOTH EYES HS 07/04/16 07/23/16 Levalbuterol HCl [Xopenex Neb] 1.25 mg IH QID 07/04/16 07/23/16 Levothyroxine [Synthroid] 100 mcg PO DAILY 07/04/16 07/23/16 Metoprolol XL (24 HR) Succ [Toprol 50 mg PO DAILY 07/04/16 07/23/16 Xl] Nitroglycerin 0.3 mg SL Q5MIN PRN 07/04/16 07/23/16 Nystatin/Triamcinolone CRM 1 appl TP Q48H 07/04/16 07/23/16 [Mycolog] Omeprazole/Sodium Bicarbonate 1 each PO DAILY 07/04/16 07/23/16 [Zegerid 40 mg Capsule] Sertraline [Zoloft] 50 mg PO DAILY 07/04/16 07/23/16 Sodium Chloride for inhalation 4 ml IH BID 07/04/16 07/23/16 [Nebusal] Ubidecarenone [Coenzyme Q10] 200 mg PO DAILY 07/04/16 07/23/16 Vit C/E/Zn/Coppr/Lutein/Zeaxan 2 cap PO DAILY 07/04/16 07/23/16 [Preservision Areds 2 Softgel] Previous Rx's Medication Instructions Recorded Alprazolam [Xanax 1 MG Tablet] 1 mg PO TID PRN #21 tablet 07/11/16 Aspirin Enteric Coated [Aspirin EC] 81 mg PO DAILY #30 tablet. 07/11/16 Atorvastatin [Lipitor] 40 mg PO HS #30 tablet 07/11/16 GuaiFENesin ER [Mucinex] 600 mg PO BID #10 tbbp.12hr 07/11/16 Magnesium Oxide [Mag-Ox] 400 mg PO BID #28 tablet 07/11/16 OxyCODONE/APAP 10/325 [Percocet 1 each PO Q6HR PRN #30 tablet 07/11/16 10/325 MG] Oxygen 3 l IN CONT #1 each 07/11/16 PredniSONE 10 mg PO DAILY #56 tablet 07/11/16 Silvasorb 1 appl TP DAILY #1 tube 07/11/16 Allergies Allergy/AdvReac Type Severity Reaction Status Date / Time escitalopram [From Lexapro] Allergy See Verified 07/04/16 15:41 Comments sulfamethoxazole Allergy See Verified 07/04/16 15:41 [From Bactrim] Comments trimethoprim [From Bactrim] Allergy See Verified 07/04/16 15:41 Comments All systems ED: reviewed and negative except as stated. Past Medical History - Past Medical History Source: patient, old records reviewed, obtained from family Medical history: Reports: atrial fibrillation, CHF, COPD, GERD, hyperlipidemia, hypertension, osteoporosis, venous stasis, other Surgical history: Reports: coronary bypass (CABG), pacemaker Psychiatric history: Reports: depression - Social History Smoking Status: Never smoker Smokeless Tobacco Status: No Alcohol use: Reports: none Drug use: Reports: none Physical Exam - General Limitations: altered mental status General appearance: alert, in distress - Head Head exam: atraumatic, normocephalic, normal inspection - Eye Eye exam: Present: normal appearance, PERRL, EOMI - ENT ENT exam: normal exam, normal oropharynx, mucous membranes moist - Neck Neck exam: Present: normal inspection, full ROM, trachea midline - Chest Chest inspection: Present: symmetric chest wall rise, tenderness. Absent: rash - Respiratory Respiratory exam: Present: wheezes. Absent: respiratory distress, accessory muscle use, prolonged expiratory phase - Cardiovascular Cardiovascular exam: Present: regular rate, normal rhythm, normal heart sounds - Abdominal Exam Abdominal exam: Present: soft, Non-Tender. Absent: tenderness, distention, guarding, rebound, rigidity - Extremities Exam Extremities exam: Present: pedal edema. Absent: tenderness - Back Exam Back exam: Present: normal inspection, full ROM. Absent: tenderness - Neurological Exam Neurological exam: Present: other (Limited seconded patient mental status) - Psychiatric Psychiatric exam: Present: other (Limited secondary to patient's mental status) - Skin Skin exam: Present: warm, dry, intact, normal color Course Vital Signs Temperature 98.2 F 07/23/16 14:29 Pulse Rate 93 07/23/16 14:29 Respiratory Rate 22 07/23/16 14:29 Blood Pressure 167/83 07/23/16 14:29 O2 Sat by Pulse Oximetry 93 L 07/23/16 14:29 Temperature 98.2 F 07/23/16 14:29 Pulse Rate 91 07/23/16 20:52 Respiratory Rate 16 07/23/16 20:52 Blood Pressure 166/91 07/23/16 20:52 O2 Sat by Pulse Oximetry 100 07/23/16 20:52 Oxygen Delivery Oxygen Delivery Room Air Shortness of Breath/Dyspnea - Differential Diagnosis Likely: acute exacerbation of chronic obstructive airways disease, congestive heart failure, pneumonia, pulmonary embolism - Medical Records Medical records reviewed: Yes I reviewed the patient's medical records. - Lab Data Lab results reviewed: Yes I reviewed the patient's lab results. Result diagrams: 07/23/16 17:14 07/23/16 17:14 Lab Results 07/23/16 07/23/16 07/23/16 Range/Units 14:54 16:38 17:14 WBC 26.5 H (4.3-11.1) K/mcL RBC 3.76 L (3.82-4.97) M/mcL Hgb 11.5 (11.5-15.4) g/dL Hct 37.0 (35.3-44.9) % MCV 98.4 (83.0-100.0) fL MCH 30.6 (28.0-33.3) pg MCHC 31.1 L (31.6-35.5) g/dL RDW 14.2 (11.5-14.5) % Plt Count 268 (140-400) K/mcL MPV 10.0 (9.4-12.4) fL Immature Gran % 2.5 (0-4) % Seg Neutrophils % 88.9 % Lymphocytes % 3.5 % Monocytes % 4.9 % Eosinophils % 0.0 % Basophils % 0.2 % Neutrophils # 23.6 H (1.6-8.9) K/mcL Lymphocytes # 0.9 (0.6-4.6) K/mcL Monocytes # 1.3 (0.0-1.3) K/mcL Eosinophils # 0.0 (0.0-0.6) K/mcL Basophils # 0.1 (0.0-0.2) K/mcL Reactive Lymphocytes Present A (Not Present) Immature Plt Fraction 3.2 (1.1-6.1) % PT (9.4-12.1) Seconds INR APTT (26.0-36.0) Seconds Sodium (136-145) mEq/L Potassium (3.5-4.5) mEq/L Chloride (98-109) mEq/L Carbon Dioxide (19-29) mEq/L BUN (7-20) mg/dL Creatinine (0.57-1.11) mg/dL Est GFR ( Amer) (> 60) Est GFR (Non-Af Amer) (> 60) BUN/Creatinine Ratio (6-26) Glucose (70-99) mg/dL Calculated Osmolality (280-300) Lactic Acid 1.8 (0.5-2.2) mmol/L Calcium (8.6-10.8) mg/dL Total Bilirubin (0.2-1.2) mg/dL AST (5-34) Units/L ALT (0-55) Units/L Alkaline Phosphatase (38-126) Units/L Troponin I (0-0.03) ng/mL B-Natriuretic Peptide (0-100) pg/mL Serum Total Protein (6.0-8.3) g/dL Albumin (3.5-5.0) g/dL Globulin (2.4-3.5) g/dL Albumin/Globulin Ratio (1.1-2.2) Urine Color (Yellow) Urine Clarity (Clear) Urine pH (5.0-8.0) pH Units Ur Specific [place] (1.010-1.025) Urine Protein (Neg-Trace) mg/dL Urine Glucose (UA) (Normal) mg/dL Urine Ketones (Negative) mg/dL Urine Blood (Negative) Urine Nitrite (Negative) Urine Bilirubin (Negative) Urine Urobilinogen (Normal) mg/dL Ur Leukocyte Esterase (Negative) Urine Microscopic RBC (0-3) per hpf Urine Microscopic WBC (0-3) per hpf Ur Squamous Epith Cells (None-Few) per lpf Urine Bacteria (None-Few) per hpf Hyaline Casts (None-Few) per lpf Ur Culture Indicated? (NO) Specimen Rejected Clotted 07/23/16 07/23/16 07/23/16 Range/Units 17:14 17:14 17:14 WBC (4.3-11.1) K/mcL RBC (3.82-4.97) M/mcL Hgb (11.5-15.4) g/dL Hct (35.3-44.9) % MCV (83.0-100.0) fL MCH (28.0-33.3) pg MCHC (31.6-35.5) g/dL RDW (11.5-14.5) % Plt Count (140-400) K/mcL MPV (9.4-12.4) fL Immature Gran % (0-4) % Seg Neutrophils % % Lymphocytes % % Monocytes % % Eosinophils % % Basophils % % Neutrophils # (1.6-8.9) K/mcL Lymphocytes # (0.6-4.6) K/mcL Monocytes # (0.0-1.3) K/mcL Eosinophils # (0.0-0.6) K/mcL Basophils # (0.0-0.2) K/mcL Reactive Lymphocytes (Not Present) Immature Plt Fraction (1.1-6.1) % PT 10.8 (9.4-12.1) Seconds INR 1.0 APTT 22.2 L (26.0-36.0) Seconds Sodium 139 (136-145) mEq/L Potassium 4.6 H (3.5-4.5) mEq/L Chloride 91 L (98-109) mEq/L Carbon Dioxide 38 H (19-29) mEq/L BUN 19 (7-20) mg/dL Creatinine 0.91 (0.57-1.11) mg/dL Est GFR ( Amer) > 60 (> 60) Est GFR (Non-Af Amer) 59 L (> 60) BUN/Creatinine Ratio 21 (6-26) Glucose 175 H (70-99) mg/dL Calculated Osmolality 295 (280-300) Lactic Acid (0.5-2.2) mmol/L Calcium 9.1 (8.6-10.8) mg/dL Total Bilirubin 0.3 (0.2-1.2) mg/dL AST 47 H (5-34) Units/L ALT 51 (0-55) Units/L Alkaline Phosphatase 286 H (38-126) Units/L Troponin I (0-0.03) ng/mL B-Natriuretic Peptide (0-100) pg/mL Serum Total Protein 6.3 (6.0-8.3) g/dL Albumin 2.6 L (3.5-5.0) g/dL Globulin 3.7 H (2.4-3.5) g/dL Albumin/Globulin Ratio 0.7 L (1.1-2.2) Urine Color Yellow (Yellow) Urine Clarity Cloudy A (Clear) Urine pH 5.0 (5.0-8.0) pH Units Ur Specific [place] 1.019 (1.010-1.025) Urine Protein 30 H (Neg-Trace) mg/dL Urine Glucose (UA) Normal (Normal) mg/dL Urine Ketones Negative (Negative) mg/dL Urine Blood Negative (Negative) Urine Nitrite Negative (Negative) Urine Bilirubin Negative (Negative) Urine Urobilinogen Normal (Normal) mg/dL Ur Leukocyte Esterase Large H (Negative) Urine Microscopic RBC 3-5 H (0-3) per hpf Urine Microscopic WBC 30-50 H (0-3) per hpf Ur Squamous Epith Cells Many H (None-Few) per lpf Urine Bacteria None Seen (None-Few) per hpf Hyaline Casts Few (None-Few) per lpf Ur Culture Indicated? YES A (NO) Specimen Rejected 07/23/16 07/23/16 07/23/16 Range/Units 17:14 17:14 17:14 WBC (4.3-11.1) K/mcL RBC (3.82-4.97) M/mcL Hgb (11.5-15.4) g/dL Hct (35.3-44.9) % MCV (83.0-100.0) fL MCH (28.0-33.3) pg MCHC (31.6-35.5) g/dL RDW (11.5-14.5) % Plt Count (140-400) K/mcL MPV (9.4-12.4) fL Immature Gran % (0-4) % Seg Neutrophils % % Lymphocytes % % Monocytes % % Eosinophils % % Basophils % % Neutrophils # (1.6-8.9) K/mcL Lymphocytes # (0.6-4.6) K/mcL Monocytes # (0.0-1.3) K/mcL Eosinophils # (0.0-0.6) K/mcL Basophils # (0.0-0.2) K/mcL Reactive Lymphocytes (Not Present) Immature Plt Fraction (1.1-6.1) % PT (9.4-12.1) Seconds INR APTT (26.0-36.0) Seconds Sodium (136-145) mEq/L Potassium (3.5-4.5) mEq/L Chloride (98-109) mEq/L Carbon Dioxide (19-29) mEq/L BUN (7-20) mg/dL Creatinine (0.57-1.11) mg/dL Est GFR ( Amer) (> 60) Est GFR (Non-Af Amer) (> 60) BUN/Creatinine Ratio (6-26) Glucose (70-99) mg/dL Calculated Osmolality (280-300) Lactic Acid 1.6 (0.5-2.2) mmol/L Calcium (8.6-10.8) mg/dL Total Bilirubin (0.2-1.2) mg/dL AST (5-34) Units/L ALT (0-55) Units/L Alkaline Phosphatase (38-126) Units/L Troponin I 0.07 H* (0-0.03) ng/mL B-Natriuretic Peptide 3267 H (0-100) pg/mL Serum Total Protein (6.0-8.3) g/dL Albumin (3.5-5.0) g/dL Globulin (2.4-3.5) g/dL Albumin/Globulin Ratio (1.1-2.2) Urine Color (Yellow) Urine Clarity (Clear) Urine pH (5.0-8.0) pH Units Ur Specific [place] (1.010-1.025) Urine Protein (Neg-Trace) mg/dL Urine Glucose (UA) (Normal) mg/dL Urine Ketones (Negative) mg/dL Urine Blood (Negative) Urine Nitrite (Negative) Urine Bilirubin (Negative) Urine Urobilinogen (Normal) mg/dL Ur Leukocyte Esterase (Negative) Urine Microscopic RBC (0-3) per hpf Urine Microscopic WBC (0-3) per hpf Ur Squamous Epith Cells (None-Few) per lpf Urine Bacteria (None-Few) per hpf Hyaline Casts (None-Few) per lpf Ur Culture Indicated? (NO) Specimen Rejected - Radiology Data Radiology results reviewed: Yes I reviewed the patient's radiology results. Chest X-Ray 07/23/16 14:34 IMPRESSION: Diffuse congestive heart failure, slightly worse. Size of the effusions is approximately stable D/ / Benjamin Bertrand MD / Benjamin Bertrand MD Interpreting Provider: Benjamin Bertrand MD Chest CTA 07/23/16 18:11 IMPRESSION: No acute pulmonary embolus is appreciated. Moderate bilateral pleural effusions with basilar consolidations. Scattered patchy solid and non solid airspace disease within the upper lobes. Pulmonary edema is suspected. Associated pneumonia also considered. Right middle lobe bronchiectasis. 1.5 cm sized possible solid right renal cortical lesion. Nonemergent follow-up CT scan with renal mass protocol or renal ultrasound is recommended for further evaluation. D/ / Jamie Persaud MD / Jamie Persaud MD Interpreting Provider: Jamie Persaud MD - EKG Data EKG attestation: Yes I reviewed and interpreted this EKG. EKG results narrative: Electrically paced rhythm Critical Care Time Total Critical Care Time: 60 Attestation: Critical care performed: Time is exclusive of separately billable procedures. Time includes: direct patient care, patient reassessment, coordination of patient care, interpretation of data (laboratory data, radiology data, and respiratory data), review of patient's medical records, medical consultation and documentation of patient care. Procedures included in critical care time: Procedures excluded from critical care time:
[2016-07-23 17:31] LABS: Bilirubin,Urine Negative (Negative); Blood,Urine Negative (Negative); Clarity,Urine Cloudy (Clear); Color,Urine Yellow (Yellow); Glucose,Urine (UA) Normal (Normal); Ketones,Urine Negative (Negative); Leukocyte Esterase,Urine Large (Negative); Nitrite,Urine Negative (Negative); Protein,Urine 30 mg/dL (Neg-Trace); Specific Gravity,Urine 1.019 (1.010-1.025); Urobilinogen,Urine Normal (Normal)
[2016-07-23 17:33] LABS: Bacteria,Urine None Seen per hpf (None-Few); Squamous Epithelial Cell,Urine Many per lpf (None-Few); WBC,Urine 30-50 per hpf (0-3)
[2016-07-23 17:36] LABS: Basophils # 0.1 K/mcL (0.0-0.2); Basophils % 0.2 %; Hemoglobin 11.5 g/dL (11.5-15.4); Immature Granulocytes % 2.5 % (0-4); Immature Platelets 3.2 % (1.1-6.1); Lymphocytes # 0.9 K/mcL (0.6-4.6); Lymphocytes % 3.5 %; Mean Corpuscular HGB Conc 31.1 g/dL (31.6-35.5); Mean Corpuscular Hemoglobin 30.6 pg (28.0-33.3); Mean Corpuscular Volume 98.4 fL (83.0-100.0); Monocytes # 1.3 K/mcL (0.0-1.3); Monocytes % 4.9 %; Neutrophils # 23.6 K/mcL (1.6-8.9); Platelet Count 268 K/mcL (140-400); Red Blood Count 3.76 M/mcL (3.82-4.97); Red Cell Distribution Width 14.2 % (11.5-14.5); Segmented Neutrophils % 88.9 %
[2016-07-23 17:41] LABS: Hyaline Casts,Urine Few per lpf (None-Few)
[2016-07-23 17:43] LABS: Alanine Aminotransferase 51 Units/L (0-55); Albumin 2.6 g/dL (3.5-5.0); Albumin/Globulin Ratio 0.7 (1.1-2.2); Alkaline Phosphatase 286 Units/L (38-126); Aspartate Amino Transferase 47 Units/L (5-34); BUN/Creatinine Ratio 21 (6-26); Bilirubin,Total 0.3 mg/dL (0.2-1.2); Blood Urea Nitrogen 19 mg/dL (7-20); Calcium 9.1 mg/dL (8.6-10.8); Carbon Dioxide 38 mEq/L (19-29); Chloride 91 mEq/L (98-109); Globulin 3.7 g/dL (2.4-3.5); Glucose 175 mg/dL (70-99); Osmolality,Calculated 295 (280-300); Potassium 4.6 mEq/L (3.5-4.5); Sodium 139 mEq/L (136-145); Total Protein 6.3 g/dL (6.0-8.3); eGFR For African Americans > 60 (> 60); eGFR For Non-African Americans 59 (> 60)
[2016-07-23 17:52] LABS: Prothrombin Time 10.8 Seconds (9.4-12.1)
[2016-07-23 17:55] LABS: Activated Partial Thrombo Time 22.2 Seconds (26.0-36.0)
[2016-07-23 17:57] LABS: Reactive Lymphocytes Present (Not Present)
[2016-07-23] MEDS ORDERED: Piperacillin/Tazobactam 3.375 GM in D5% in Water (Mini-Bag+) 100 ML IVPB ONE (19:37)
[2016-07-23] MEDS ORDERED: Vancomycin 1,000 MG in D5% in Water 250 ML IVPB ONE (19:37)
[2016-07-23] MEDS ORDERED: Furosemide 40 MG/4 ML VIAL IVP ONE (19:41)
[2016-07-24] MEDS ORDERED: Nitroglycerin 0.4 MG TAB.SUBL SL PRN (01:28)
[2016-07-24] MEDS ORDERED: NON-FORMULARY MEDICATION 1 EACH EACH (Oxygen [Oxygen] 3 L) IN SCH (01:30)
[2016-07-24] MEDS ORDERED: *HR* OxyCODONE Immed Rel 5 MG TABLET PO PRN (01:32)
[2016-07-24] MEDS ORDERED: Benzonatate 100 MG CAPSULE PO PRN (01:34)
[2016-07-24] MEDS ORDERED: Acetaminophen 325 MG TABLET PO PRN ×2 (01:34→03:12)
[2016-07-24] MEDS ORDERED: Naloxone 0.4 MG/ML INJ IVP PRN (01:34)
[2016-07-24] MEDS ORDERED: *HR* Morphine 2 MG/ML SYRINGE IVP PRN (01:34)
[2016-07-24] MEDS ORDERED: Albuterol 2.5 MG/3 ML NEBULIZER IH PRN (01:34)
[2016-07-24] MEDS ORDERED: 0.9 % Sodium Chloride 1,000 ML IVC SCH (01:45)
[2016-07-24] MEDS: ALPRAZolam 1 MG TABLET PO PRN ×4 (01:46→22:02)
--- NOTE | 2016-07-24 01:47 | Internal Med History&Physical ---
Date of Encounter: 07/24/16 Time of Encounter: 01:30 Assessment and Plan (1) Toxic metabolic encephalopathy Status: Acute . (2) Delirium due to conditions classified elsewhere Status: Acute . (3) Demand ischemia of myocardium Status: Acute . (4) Elevated troponin Status: Acute . (5) HCAP (healthcare-associated pneumonia) Status: Acute . (6) MU (acute kidney injury) Status: Acute . (7) Atrial fibrillation Status: Chronic . Qualifiers: Atrial fibrillation type: paroxysmal Qualified Code(s): I48.0 - Paroxysmal atrial fibrillation (8) CAD (coronary artery disease) Status: Chronic . Qualifiers: Coronary Disease-Associated Artery/Lesion type: [place] artery [place] vs. transplanted heart: [place] heart Associated angina: without angina Qualified Code(s): I25.10 - Atherosclerotic heart disease of [place] coronary artery without angina pectoris (9) Malnutrition of moderate degree Status: Chronic . (10) Physical deconditioning Status: Chronic . (11) Anxiety Status: Acute . (12) COPD (chronic obstructive pulmonary disease) Status: Chronic . Qualifiers: COPD type: unspecified COPD Qualified Code(s): J44.9 - Chronic obstructive pulmonary disease, unspecified (13) Chronic pain Status: Chronic . Qualifiers: Chronic pain type: chronic pain syndrome Qualified Code(s): G89.4 - Chronic pain syndrome (14) Functional quadriplegia Status: Chronic . (15) Hypertension Status: Chronic . Qualifiers: Hypertension type: essential hypertension Qualified Code(s): I10 - Essential (primary) hypertension (16) Altered mental status Status: Resolved . Qualifiers: Altered mental status type: transient alteration of awareness Qualified Code(s): R40.4 - Transient alteration of awareness (17) UTI (urinary tract infection) Status: Acute . Qualifiers: Urinary tract infection type: acute cystitis Hematuria presence: without hematuria Qualified Code(s): N30.00 - Acute cystitis without hematuria (18) Right renal mass Status: Acute . (19) Acute and chronic respiratory failure Status: Acute . Qualifiers: Respiratory failure complication: hypercapnia Qualified Code(s): J96.22 - Acute and chronic respiratory failure with hypercapnia (20) Congestive heart failure (CHF) Status: Acute . Qualifiers: Congestive heart failure type: combined Congestive heart failure chronicity : acute on chronic Qualified Code(s): I50.43 - Acute on chronic combined systolic (congestive) and diastolic (congestive) heart failure (21) Hx of polymyalgia rheumatica Status: Chronic . (22) Fibromyalgia affecting multiple sites Status: Chronic . (23) At risk for accident in home Status: Acute . (24) At risk for activity intolerance Status: Acute . (25) At risk for acute confusion Status: Acute . (26) At risk for acute ischemic cardiac event Status: Acute . (27) At risk for adverse drug event Status: Acute . (28) Bronchiectasis with (acute) exacerbation Status: Acute . Internal Medicine - H&P: HPI Chief complaint: Altered mental status Admitted From: Emergency Dept Plans for Post Hospital Care: Home History of present illness: Ms. Schulte is a 86 year old female with medical history significant for hypertension, dyslipidemia, CAD/CABG, diastolicCHF, atrial fibrillation/PPM, GERD, depression and anxiety, hypothyroidism, glaucoma, end- stage COPD- emphysema, chronic respiratory failure continuous home oxygen dependent, allergic rhinitis, iron deficiency, osteoarthritis, osteoporosis, polymyalgia rheumatica /chr corticosteroid usage, chr pain syndrome/persona, fibromyalgia, diffuse SCCs/AKs, vitamin D deficiency, functional quadriplegia, nonsmoker. The patient was visited and interviewed and examined. Patient presented mildly encephalopathic. Lethargic. Frail. Inattentive. in acute respiratory distress. An unreliable historian of current circumstances and events. Patient is admitted to [facility] via the emergency department she presented via EMS services up some home with concerns of alteration in mental status. Family report once daily of decline in mental status had been witnessed. The complaints of shortness of breath. Complaints of generalized weakness lack of appetite. Complaints of subjective fevers and chills. Findings in the ED: Temperature 98.2 pulse 93 respirations 16-22 BP 167 /80-93. CBC 26.5 hemoglobin 11.5 platelets 268,000. Differential showed an increase in neutrophils. Reactive lymphocytes present. Lactic acid 1.8. PT 10.8 INR 1.0 PTT 22.2. Metabolic panel potassium 4.6 chloride 91. Carbon dioxide 38. BUN 19 creatinine 0.91 every 4 59. Glucose 175 osmolality 295. AST 47. Alkaline phosphatase 286. Albumin 2.6 total 6.3. Urinalysis finds large protein. Large leukocyte esterase. 5 RBC. 50 WBC. Many epithelial cells. Casts. Troponin 0.07. Natruretic peptide 3267. Lactic acid 1.6. EKG electrically paced rhythm. O2 saturation 93-100% room air. portable chest x- ray demonstrated previous congestive heart failure. Cardiac device and sternal wires noted. Cardiomegaly seen. Left greater than right pleural effusion with diffuse edema. Areas of atelectasis and consolidation. Degenerative changes of bone. CT angiogram of chest demonstrated no acute pulmonary embolus. Moderate bilateral pleural effusions with basilar consolidations. Scattered patchy solid and nonsolid airspace disease within upper lobes. Pulmonary edema. Associated pneumonia. No lobe atelectasis and bronchiectasis. 1.5 cm solid right renal cortical lesion. Follow-up recommended. Cumulative laboratory and radiographic data base was reviewed, considered and discussed. Pertinent ancillary medical records including ECW and PCI documentation was reviewed and considered. Given the patient's presenting concerns, past medical history, clinical findings and symptoms, she is admitted at this time will undergo further evaluation and disposition. Orders were written as per the computerized physician order puller system.......................................................................... .................... Consultative opinion and will be sought as clinical circumstances justify. manager environmental services/case management to assist in progressive discharge planning needs. Wound care consultation. Pain management needs will be addressed. Laboratory and radiographic data base will be updated as appropriate. Studies include: Cultures of blood and urine and sputum, CPK, LDH, ammonia, UA, UDS, cardiac injury panel, BNP, metabolic and hematologic panel, magnesium, phosphorus, ionized calcium, thyroid panel, lipid profile, A1c, C-peptide, CRP, sedimentation rate, respiratory infection profile, respiratory virus panel, blood gas, lactic acid, serologies, etc. Precautions: Aspiration, fall, delirium protocol/surveillance initiated. Telemetry with continuous hemodynamic monitoring and pulse oximetry initiated. Orthostatic vital signs. Empiric antibiotic coverage (HCAP): Intravenous vancomycin, Zosyn, Levaquin pending culture data. Special studies: CTA chest, chest x-ray, telemetry, EKG, dedicated CT renal study, bladder scan, postvoid residual,. Pulmonary toilet: Incentive spirometry, aerosol bronchodilator, mucolytic, antitussive, supplemental oxygen. Corticosteroid therapy. CPAP/BiPAP supplemental oxygen delivery. Aerosol Mucomyst therapy. Fluid and electrolyte repletion efforts will proceed. Careful attention to fluid balance and renal recovery will be emphasized. Avoidance of nephrotoxic exposure and adverse drug drug interaction in the setting of impaired renal function will be monitored closely. Acute coronary syndrome protocol/surveillance initiated. DVT and PUD prophylaxis initiated: PPI therapy, intermittent pneumatic cuffs. Subcutaneous heparin. Early ambulation will be encouraged. Immunization updates recommended. Influenza and pneumococcal vaccinations as part of ongoing preventative healthcare recommendations strongly recommended. Smoking cessation counseling briefly addressed. Patient is a nonsmoker per recent medical record entries and family validation. Advanced care directive discussion briefly addressed. Patient does not declare any healthcare restrictions at this time as per recent medical record entries and family validation. Cardiovascular risk appraisal and cardiovascular risk reduction efforts will be emphasized. Physical and occupational therapy consulted to evaluate/assess patient's functional capacity and progress mobility as her circumstances permit. Nutrition/dietary education counseling may be considered as circumstances justify. Outpatient medication schedules will be reviewed, confirmed and facilitated as appropriate. Reconciliation of home treatments including adjustments, substitutions and reintroduction into the treatment regimen will address necessary maintenance therapies for chronic pre-existing medical conditions. Plan of care has been reviewed and discussed in detail with the patient's family. Questions addressed. Hospital course will depend on clinical findings, treatment response and potential consultative interventions. Patient is at risk for further acute clinical decline and morbidity due to her age, chief complaints, frailty and comorbid conditions. Condition is serious. Prognosis is guarded. CODE STATUS is full. (Patient was recently hospitalized at [facility] 07/04/2016 to 07/11/2016. Dismissal diagnoses included: acute on chronic hypoxic-hypercapneic respiratory failure;HCA-Pneumonia vs. CA-pneumonia; functional quadriplegia (bedridden>2yrs ) with dependence on caregiver; severe, uncontrolled generalized anxiety disorder/depression; MU/CKD; UTI; sacral pressure wound; FTT in adult with protein caloric malnutrition. Upon discharge acute medical concerns were stabilized patient once again at her baseline medical status although debilitated. 24-hour [id number] care is provided to in the home setting. Outpatient outreach provided to assist in establishing primary care provider within the week of discharge. Appointment however was not completed.) Past Med Surg Social Fam HX - Past Medical History Source: old records reviewed Medical history: arthritis (Osteoarthritis. Chronic back pain. 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 Bronchiectasis.), coronary artery disease, fibromyalgia, GERD, GI bleed (C. difficile colitis. Upper GI bleed blood loss anemia. 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 Actinic keratoses.), osteoporosis, RA (Polymyalgia rheumatica with chronic use of systemic steroids.), renal disease, thyroid disease, venous stasis, other (Parkinson's disease unspecified.) Psychiatric history: anxiety, depression, other - Past Surgical History Surgical History: cancer surgery, coronary bypass (CABG), other, pacemaker - Social History Smoking Status: Never smoker Smokeless Tobacco Status: No Alcohol use: none Drug use: none Occupational status: retired, disabled Current living situation: With Family Activity Level: Wheelchair bound, Bed bound, Mostly sedentary Recent Out of Country Travel Within the Last 8 Weeks: No - Family History Mother Living Status: Cause of : stroke Father Living Status: Hx Family Cancer: Yes Internal Medicine - H&P: Meds Ascorbic Acid [Vitamin C] 1,000 mg PO DAILY 07/04/16 [History] Brimonidine Tartrate/Timolol [Combigan 0.2%-0.5% Eye Drops] 1 drop BOTH EYES BID 07/04/16 [History] Brinzolamide 1% [Azopt] 1 drop BOTH EYES QID 07/04/16 [History] Candesartan Cilexetil [Atacand] 4 mg PO DAILY 07/04/16 [History] Cholecalciferol (D-3) [Vitamin D] 1,000 unit PO DAILY 07/04/16 [History] Cyanocobalamin (Vitamin B-12) [Vitamin B12] 1,000 mcg PO DAILY 07/04/16 [History ] Cyclosporine [Restasis] 1 each BOTH EYES BID 07/04/16 [History] Docusate [Colace] 100 mg PO BID 07/04/16 [History] Ferrous Sulfate 325 mg PO DAILY 07/04/16 [History] Fluticasone Propionate Nasal [Flonase] 100 mcg NS DAILY 07/04/16 [History] Fluticasone/Salmeterol [Advair 250-50 Diskus] 1 each IH BID 07/04/16 [History] Furosemide [Lasix] 20 mg PO DAILY 07/04/16 [History] Latanoprost [Xalatan] 1 drop BOTH EYES HS 07/04/16 [History] Levalbuterol HCl [Xopenex Neb] 1.25 mg IH QID 07/04/16 [History] Levothyroxine [Synthroid] 100 mcg PO DAILY 07/04/16 [History] Metoprolol XL (24 HR) Succ [Toprol Xl] 50 mg PO DAILY 07/04/16 [History] Nitroglycerin 0.3 mg SL Q5MIN PRN 07/04/16 [History] Nystatin/Triamcinolone CRM [Mycolog] 1 appl TP Q48H 07/04/16 [History] Omeprazole/Sodium Bicarbonate [Zegerid 40 mg Capsule] 1 each PO DAILY 07/04/16 [ History] Sertraline [Zoloft] 50 mg PO DAILY 07/04/16 [History] Sodium Chloride for inhalation [Nebusal] 4 ml IH BID 07/04/16 [History] Ubidecarenone [Coenzyme Q10] 200 mg PO DAILY 07/04/16 [History] Vit C/E/Zn/Coppr/Lutein/Zeaxan [Preservision Areds 2 Softgel] 2 cap PO DAILY 06/08 [History] Alprazolam [Xanax 1 MG Tablet] 1 mg PO TID PRN #21 tablet 07/11/16 [Rx] Aspirin Enteric Coated [Aspirin EC] 81 mg PO DAILY #30 tablet. 07/11/16 [Rx] Atorvastatin [Lipitor] 40 mg PO HS #30 tablet 07/11/16 [Rx] GuaiFENesin ER [Mucinex] 600 mg PO BID #10 tbbp.12hr 07/11/16 [Rx] Magnesium Oxide [Mag-Ox] 400 mg PO BID #28 tablet 07/11/16 [Rx] OxyCODONE/APAP 10/325 [Percocet 10/325 MG] 1 each PO Q6HR PRN #30 tablet [Rx] Oxygen 3 l IN CONT #1 each 07/11/16 [Rx] PredniSONE 10 mg PO DAILY #56 tablet 07/11/16 [Rx] Silvasorb 1 appl TP DAILY #1 tube 07/11/16 [Rx] Furosemide [Lasix] 20 mg PO DAILY #30 tablet 07/27/16 [Rx] Levofloxacin [Levaquin] 250 mg PO DAILY #3 tablet 07/27/16 [Rx] Allergies escitalopram [From Lexapro] Allergy (Verified 07/04/16 15:41) See Comments sulfamethoxazole [From Bactrim] Allergy (Verified 07/04/16 15:41) See Comments trimethoprim [From Bactrim] Allergy (Verified 07/04/16 15:41) See Comments ROS unobtainable: due to mental status All Systems PM: A 10-system review of systems was performed and is negative for pertinent findings except as documented above in the HPI. The patient presents with acute encephalopathy and delirium. She is an unreliable historian of cervical cyst. Detail to collected from EMS and attending staff triage family members and medical records. - Constitutional Constitutional: as per HPI - EENT Eyes: as per HPI Ears: as per HPI Nose, mouth and throat: as per HPI - Cardiovascular Cardiovascular ROS IM: as per HPI - Respiratory Respiratory: as per HPI - Gastrointestinal Gastrointestinal: as per HPI - Genitourinary Genitourinary: as per HPI - Musculoskeletal Musculoskeletal ROS IM: as per HPI - Integumentary Integumentary IM: as per HPI - Neurological Neurological ROS: as per HPI - Psychiatric Psychiatric: as per HPI - Endocrine Endocrine IM: as per HPI - Hematologic/Lymphatic Hematologic/Lymphatic: as per HPI - Allergic/Immunologic Allergic/Immunologic: as per HPI - Constitutional Vitals: Temp Pulse Resp BP Pulse Ox 97.4 F L 70 16 153/82 99 07/23/16 22:35 07/23/16 22:35 07/23/16 22:35 07/23/16 22:35 07/23/16 22:35 General appearance: Present: cachectic, A&O X 1, disheveled, obese, severe distress. Absent: cooperative, answers questions appropriately - Head Head exam: Present: atraumatic, normocephalic - Eye Eye exam: Present: PERRL, conjuntiva pink, sclera anicteric Pupils: Present: normal accommodation, PERRL - ENT ENT exam: Present: mucous membranes dry, normal external ear exam, normal oropharynx - Neck Neck exam general surgery: Present: full ROM, supple, trachea midline. Absent: lymphadenopathy, tenderness, nuchal rigidity - Respiratory Respiratory exam: Present: accessory muscle use, chest wall tenderness, decreased breath sounds, respiratory distress, rhonchi, wheezes, tachypnea. Absent: CTAB, rales - Cardiovascular Cardiovascular exam: Present: distant heart sounds, RRR, +S1, +S2. Absent: diastolic murmur, gallop, rubs, systolic murmur - GI/Abdominal GI/Abdominal exam: Present: diminished bowel sounds, soft, no peritoneal signs. Absent: distended, tenderness - Extremities Exam Extremities exam: Present: full ROM, tenderness, warm, radial pulses palpable and symetrical. Absent: calf tenderness, cyanotic, pedal edema - Neurological Exam Neurological exam: Present: alert, altered, CN II-XII intact, motor sensory deficit. Absent: oriented X3, pronater drift, facial droop, speech deficit - Expanded Neurological Exam Neurological exam expanded: Present: ataxia, inattentive, protecting the airway. Absent: expressive aphasia, receptive aphasia Patient oriented to: Present: person. Absent: place, time Speech: Present: garbled Coma Scale Eye Opening: Spontaneous Coma Scale Motor Response: Withdraws to Pain Coma Scale Verbal Response: Confused Coma Scale Total: 12 - Psychiatric Psychiatric exam: Present: agitated, flat affect - Skin Skin exam: Present: cyanosis, dry, intact, warm. Absent: petechiae, rash, urticaria, vesicles Internal Med - H&P Results - Labs CBC & Chem 7: 07/27/16 04:20 07/27/16 04:20 - Impressions Vital Signs Temp Pulse Resp BP Pulse Ox 07/23/16 22:35 97.4 F L 70 16 153/82 99 07/23/16 21:33 18 160/84 07/23/16 20:52 91 16 166/91 100 07/23/16 19:32 98 20 165/91 100 07/23/16 18:45 92 20 155/98 100 07/23/16 18:15 79 20 162/84 100 07/23/16 17:59 72 16 148/93 99 07/23/16 17:08 73 16 141/71 100 07/23/16 16:02 102 16 142/107 95 07/23/16 15:31 73 22 157/73 93 L 07/23/16 14:57 80 16 173/68 94 L 07/23/16 14:53 16 93 L 07/23/16 14:34 93 L 07/23/16 14:29 98.2 F 93 22 167/83 93 L Intake and Output 07/23/16 07/23/16 07/24/16 15:59 23:59 07:59 Output Total 800 / 800 Balance -800 / -800 Output: Catheter 800 / 800 Other: Weight 63.049 kg 66.5 kg Short CBC 07/23/16 Range/Units 17:14 WBC 26.5 H (4.3-11.1) K/mcL Hgb 11.5 (11.5-15.4) g/dL Hct 37.0 (35.3-44.9) % Plt Count 268 (140-400) K/mcL Neutrophils # 23.6 H (1.6-8.9) K/mcL BMP 07/23/16 Range/Units 17:14 Sodium 139 (136-145) mEq/L Potassium 4.6 H (3.5-4.5) mEq/L Chloride 91 L (98-109) mEq/L Carbon Dioxide 38 H (19-29) mEq/L BUN 19 (7-20) mg/dL Creatinine 0.91 (0.57-1.11) mg/dL Glucose 175 H (70-99) mg/dL Calcium 9.1 (8.6-10.8) mg/dL Cardiac Enzymes 07/23/16 Range/Units 17:14 Troponin I 0.07 H* (0-0.03) ng/mL Liver Function 07/23/16 Range/Units 17:14 Total Bilirubin 0.3 (0.2-1.2) mg/dL AST 47 H (5-34) Units/L ALT 51 (0-55) Units/L Alkaline Phosphatase 286 H (38-126) Units/L Albumin 2.6 L (3.5-5.0) g/dL Urine 07/23/16 Range/Units 17:14 Urine Color Yellow (Yellow) Urine Clarity Cloudy A (Clear) Urine pH 5.0 (5.0-8.0) pH Units Ur Specific Reasnor 1.019 (1.010-1.025) Urine Protein 30 H (Neg-Trace) mg/dL Urine Glucose (UA) Normal (Normal) mg/dL Abnormal lab results WBC 26.5 K/mcL (4.3-11.1) H 07/23/16 17:14 RBC 3.76 M/mcL (3.82-4.97) L 07/23/16 17:14 MCHC 31.1 g/dL (31.6-35.5) L 07/23/16 17:14 Neutrophils # 23.6 K/mcL (1.6-8.9) H 07/23/16 17:14 Reactive Lymphocytes Present (Not Present) A 07/23/16 17:14 APTT 22.2 Seconds (26.0-36.0) L 07/23/16 17:14 Potassium 4.6 mEq/L (3.5-4.5) H 07/23/16 17:14 Chloride 91 mEq/L (98-109) L 07/23/16 17:14 Carbon Dioxide 38 mEq/L (19-29) H 07/23/16 17:14 Est GFR (Non-Af Amer) 59 (> 60) L 07/23/16 17:14 Glucose 175 mg/dL (70-99) H 07/23/16 17:14 AST 47 Units/L (5-34) H 07/23/16 17:14 Alkaline Phosphatase 286 Units/L (38-126) H 07/23/16 17:14 Troponin I 0.07 ng/mL (0-0.03) H* 07/23/16 17:14 B-Natriuretic Peptide 3267 pg/mL (0-100) H 07/23/16 17:14 Albumin 2.6 g/dL (3.5-5.0) L 07/23/16 17:14 Globulin 3.7 g/dL (2.4-3.5) H 07/23/16 17:14 Albumin/Globulin Ratio 0.7 (1.1-2.2) L 07/23/16 17:14 Urine Clarity Cloudy (Clear) A 07/23/16 17:14 Urine Protein 30 mg/dL (Neg-Trace) H 07/23/16 17:14 Ur Leukocyte Esterase Large (Negative) H 07/23/16 17:14 Urine Microscopic RBC 3-5 per hpf (0-3) H 07/23/16 17:14 Urine Microscopic WBC 30-50 per hpf (0-3) H 07/23/16 17:14 Ur Squamous Epith Cells Many per lpf (None-Few) H 07/23/16 17:14 Ur Culture Indicated? YES (NO) A 07/23/16 17:14 Allergies Allergy/AdvReac Type Severity Reaction Status Date / Time escitalopram [From Lexapro] Allergy See Verified 07/04/16 15:41 Comments sulfamethoxazole Allergy See Verified 07/04/16 15:41 [From Bactrim] Comments trimethoprim [From Bactrim] Allergy See Verified 07/04/16 15:41 Comments Laboratory Results WBC 26.5 K/mcL (4.3-11.1) H 07/23/16 17:14 RBC 3.76 M/mcL (3.82-4.97) L 07/23/16 17:14 Hgb 11.5 g/dL (11.5-15.4) 07/23/16 17:14 Hct 37.0 % (35.3-44.9) 07/23/16 17:14 MCV 98.4 fL (83.0-100.0) 07/23/16 17:14 MCH 30.6 pg (28.0-33.3) 07/23/16 17:14 MCHC 31.1 g/dL (31.6-35.5) L 07/23/16 17:14 RDW 14.2 % (11.5-14.5) 07/23/16 17:14 Plt Count 268 K/mcL (140-400) 07/23/16 17:14 MPV 10.0 fL (9.4-12.4) 07/23/16 17:14 Immature Gran % 2.5 % (0-4) 07/23/16 17:14 Seg Neutrophils % 88.9 % 07/23/16 17:14 Lymphocytes % 3.5 % 07/23/16 17:14 Monocytes % 4.9 % 07/23/16 17:14 Eosinophils % 0.0 % 07/23/16 17:14 Basophils % 0.2 % 07/23/16 17:14 Neutrophils # 23.6 K/mcL (1.6-8.9) H 07/23/16 17:14 Lymphocytes # 0.9 K/mcL (0.6-4.6) 07/23/16 17:14 Monocytes # 1.3 K/mcL (0.0-1.3) 07/23/16 17:14 Eosinophils # 0.0 K/mcL (0.0-0.6) 07/23/16 17:14 Basophils # 0.1 K/mcL (0.0-0.2) 07/23/16 17:14 Reactive Lymphocytes Present (Not Present) A 07/23/16 17:14 Immature Plt Fraction 3.2 % (1.1-6.1) 07/23/16 17:14 PT 10.8 Seconds (9.4-12.1) 07/23/16 17:14 INR 1.0 07/23/16 17:14 APTT 22.2 Seconds (26.0-36.0) L 07/23/16 17:14 Sodium 139 mEq/L (136-145) 07/23/16 17:14 Potassium 4.6 mEq/L (3.5-4.5) H 07/23/16 17:14 Chloride 91 mEq/L (98-109) L 07/23/16 17:14 Carbon Dioxide 38 mEq/L (19-29) H 07/23/16 17:14 BUN 19 mg/dL (7-20) 07/23/16 17:14 Creatinine 0.91 mg/dL (0.57-1.11) 07/23/16 17:14 Est GFR ( Amer) > 60 (> 60) 07/23/16 17:14 Est GFR (Non-Af Amer) 59 (> 60) L 07/23/16 17:14 BUN/Creatinine Ratio 21 (6-26) 07/23/16 17:14 Glucose 175 mg/dL (70-99) H 07/23/16 17:14 Calculated Osmolality 295 (280-300) 07/23/16 17:14 Lactic Acid 1.6 mmol/L (0.5-2.2) 07/23/16 17:14 Calcium 9.1 mg/dL (8.6-10.8) 07/23/16 17:14 Total Bilirubin 0.3 mg/dL (0.2-1.2) 07/23/16 17:14 AST 47 Units/L (5-34) H 07/23/16 17:14 ALT 51 Units/L (0-55) 07/23/16 17:14 Alkaline Phosphatase 286 Units/L (38-126) H 07/23/16 17:14 Troponin I 0.07 ng/mL (0-0.03) H* 07/23/16 17:14 B-Natriuretic Peptide 3267 pg/mL (0-100) H 07/23/16 17:14 Serum Total Protein 6.3 g/dL (6.0-8.3) 07/23/16 17:14 Albumin 2.6 g/dL (3.5-5.0) L 07/23/16 17:14 Globulin 3.7 g/dL (2.4-3.5) H 07/23/16 17:14 Albumin/Globulin Ratio 0.7 (1.1-2.2) L 07/23/16 17:14 Urine Color Yellow (Yellow) 07/23/16 17:14 Urine Clarity Cloudy (Clear) A 07/23/16 17:14 Urine pH 5.0 pH Units (5.0-8.0) 07/23/16 17:14 Ur Specific Reasnor 1.019 (1.010-1.025) 07/23/16 17:14 Urine Protein 30 mg/dL (Neg-Trace) H 07/23/16 17:14 Urine Glucose (UA) Normal mg/dL (Normal) 07/23/16 17:14 Urine Ketones Negative mg/dL (Negative) 07/23/16 17:14 Urine Blood Negative (Negative) 07/23/16 17:14 Urine Nitrite Negative (Negative) 07/23/16 17:14 Urine Bilirubin Negative (Negative) 07/23/16 17:14 Urine Urobilinogen Normal mg/dL (Normal) 07/23/16 17:14 Ur Leukocyte Esterase Large (Negative) H 07/23/16 17:14 Urine Microscopic RBC 3-5 per hpf (0-3) H 07/23/16 17:14 Urine Microscopic WBC 30-50 per hpf (0-3) H 07/23/16 17:14 Ur Squamous Epith Cells Many per lpf (None-Few) H 07/23/16 17:14 Urine Bacteria None Seen per hpf (None-Few) 07/23/16 17:14 Hyaline Casts Few per lpf (None-Few) 07/23/16 17:14 Ur Culture Indicated? YES (NO) A 07/23/16 17:14 Specimen Rejected Clotted 07/23/16 16:38 Impressions Chest X-Ray 07/23/16 14:34 IMPRESSION: Diffuse congestive heart failure, slightly worse. Size of the effusions is approximately stable D/ / Benjamin Bertrand MD / Benjamin Bertrand MD Interpreting Provider: Benjamin Bertrand MD Chest CTA 07/23/16 18:11 IMPRESSION: No acute pulmonary embolus is appreciated. Moderate bilateral pleural effusions with basilar consolidations. Scattered patchy solid and non solid airspace disease within the upper lobes. Pulmonary edema is suspected. Associated pneumonia also considered. Right middle lobe bronchiectasis. 1.5 cm sized possible solid right renal cortical lesion. Nonemergent follow-up CT scan with renal mass protocol or renal ultrasound is recommended for further evaluation. D/ / Jamie Persaud MD / Jamie Persaud MD Interpreting Provider: Jamie Persaud MD
[2016-07-24] MEDS ORDERED: Vancomycin 1,000 MG in D5% in Water 250 ML IVPB SCH (02:00)
[2016-07-24] MEDS ORDERED: Ipratropium Neb 0.5 MG NEBULIZER IH PRN (02:08)
[2016-07-24] MEDS: *HR* OxyCODONE/APAP 10/325 TABLET PO PRN ×4 (03:47→23:59)
[2016-07-24 04:21] LABS: Hematocrit 32.6 % (35.3-44.9); Hemoglobin 10.5 g/dL (11.5-15.4); Immature Platelets 2.9 % (1.1-6.1); Mean Corpuscular HGB Conc 32.2 g/dL (31.6-35.5); Mean Corpuscular Hemoglobin 31.2 pg (28.0-33.3); Mean Corpuscular Volume 96.7 fL (83.0-100.0); Red Blood Count 3.37 M/mcL (3.82-4.97); Red Cell Distribution Width 14.4 % (11.5-14.5)
[2016-07-24 04:44] LABS: Alanine Aminotransferase 37 Units/L (0-55); Albumin 2.4 g/dL (3.5-5.0); Albumin/Globulin Ratio 0.7 (1.1-2.2); Alkaline Phosphatase 220 Units/L (38-126); Aspartate Amino Transferase 30 Units/L (5-34); BUN/Creatinine Ratio 23 (6-26); Bilirubin,Total 0.3 mg/dL (0.2-1.2); Blood Urea Nitrogen 19 mg/dL (7-20); C-Reactive Protein 59 mg/L (Less than 5); Chloride 88 mEq/L (98-109); Chol/HDL Ratio 3.6 (0-4.9); Cholesterol 151 mg/dL (< 200); Globulin 3.5 g/dL (2.4-3.5); Glucose 88 mg/dL (70-99); HDL Cholesterol 42 mg/dL (40-59); LDL Cholesterol,Calculated 78 mg/dL (0-99); Magnesium 1.9 mg/dL (1.6-2.6); Osmolality,Calculated 286 (280-300); Phosphorous 3.3 mg/dL (2.3-4.7); Potassium 3.8 mEq/L (3.5-4.5); Sodium 137 mEq/L (136-145); Total Protein 5.9 g/dL (6.0-8.3); Triglycerides 156 mg/dL (< 150); eGFR For African Americans > 60 (> 60); eGFR For Non-African Americans > 60 (> 60)
[2016-07-24 04:49] LABS: Carbon Dioxide 41 mEq/L (19-29)
[2016-07-24] MEDS ORDERED: Ipratropium/Albuterol Neb 3 ML IH SCH (05:00)
[2016-07-24] MEDS ORDERED: Levofloxacin 750 MG/150 ML 750 MG/150 ML BAG IVPB SCH ×3 (06:00→09:00)
[2016-07-24] MEDS: Levalbuterol Neb 1.25 MG/3 ML IH SCH ×2 (06:19→11:30)
[2016-07-24] MEDS: Ondansetron 4 MG/2 ML VIAL IVP PRN ×2 (06:39→22:03)
[2016-07-24] MEDS: Ascorbic Acid 500 MG TABLET PO SCH (08:44)
[2016-07-24] MEDS: Magnesium Oxide 400 MG TABLET PO SCH ×2 (08:46→20:47)
[2016-07-24] MEDS: Aspirin Enteric Coated 81 MG Tablet PO SCH (08:46)
[2016-07-24] MEDS: Metoprolol XL (24 HR) Succ 50 MG TAB.ER.24H PO SCH (08:46)
[2016-07-24] MEDS: Piperacillin/Tazobactam 3.375 GM in D5% in Water (Mini-Bag+) 100 ML IVPB SCH ×3 (08:47→23:58)
[2016-07-24] MEDS: predniSONE 10 MG TABLET PO SCH (08:50)
[2016-07-24] MEDS: Silvasorb 44.4 ML TUBE TP SCH (08:52)
[2016-07-24] MEDS: Brinzolamide 1% 10 ML BOTTLE BOTH EYES SCH ×4 (08:53→20:55)
[2016-07-24] MEDS ORDERED: COENZYME Q10 200 MG PO SCH (09:00)
[2016-07-24] MEDS: *HR* Heparin 5,000 UNIT/ML VIAL SQ SCH ×3 (09:07→22:03)
[2016-07-24] MEDS: Furosemide 20 MG/2 ML VIAL IVP SCH ×2 (09:07→20:46)
[2016-07-24] MEDS ORDERED: Sodium Chloride for inhalation 3 ML VIAL IH SCH (10:00)
[2016-07-24] MEDS ORDERED: Budesonide/Formoterol 80/4.5 MDI IH SCH (10:00)
[2016-07-24] MEDS ORDERED: Levalbuterol Neb 1.25 MG/3 ML IH PRN ×2 (14:38→15:27)
--- NOTE | 2016-07-24 18:38 | Internal Med Progress Note ---
Date of Encounter: 07/24/16 Time of Encounter: 09:00 - Assessment and plan (1) Pneumonia Current Visit: Yes Status: Acute Assessment and plan: Patient noted to have shortness of breath, hypoxia and leukocytosis. Chest x- ray cannot rule out underlying pneumonia. Continue broad-spectrum IV antibiotics due to her recent hospitalization-IV Levaquin, Zosyn and vancomycin at this time. Follow up blood, urine and sputum cultures. Qualifiers: Pneumonia type: due to unspecified organism Laterality: bilateral Lung location: lower lobe of lung Qualified Code(s): J18.9 - Pneumonia, unspecified organism (2) Altered mental status Current Visit: Yes Status: Resolved Assessment and plan: Likely related to underlying infection and hypoxemia. Currently at baseline mental status. Qualifiers: Altered mental status type: transient alteration of awareness Qualified Code(s): R40.4 - Transient alteration of awareness (3) CHF (congestive heart failure) Current Visit: Yes Status: Acute Assessment and plan: Patient noted to have elevated B-type natriuretic peptide, slight troponin leak along with chest x-ray showing pulmonary venous congestion and pulmonary edema. Discontinue IV fluids and Start IV Lasix at low dose along with fluid restriction, strict urine output monitoring and daily weights. Continue beta reyna, ARB. Echocardiogram done during her previous hospitalization about 2 weeks back shows significantly decreased ejection fraction 25-30% with global left ventricular hypokinesis. Evaluated by cardiology at the time and given her poor baseline functional status, advanced age and recent workup at [facility], recommended medical management. Continue telemetry monitoring and troponin trending at this time. Qualifiers: Congestive heart failure type: systolic Congestive heart failure chronicity : acute Qualified Code(s): I50.21 - Acute systolic (congestive) heart failure (4) Elevated troponin Current Visit: Yes Status: Acute Assessment and plan: Likely related to demand ischemia from underlying infection and systolic dysfunction. Continue to trend troponins at this time. (5) CAD (coronary artery disease) Current Visit: Yes Status: Chronic Qualifiers: Coronary Disease-Associated Artery/Lesion type: [place] artery [place] vs. transplanted heart: [place] heart Associated angina: without angina Qualified Code(s): I25.10 - Atherosclerotic heart disease of [place] coronary artery without angina pectoris (6) COPD (chronic obstructive pulmonary disease) Current Visit: Yes Status: Chronic Assessment and plan: Not noted to be in acute exacerbation. Continue supplemental oxygen, bronchodilators. Qualifiers: COPD type: unspecified COPD Qualified Code(s): J44.9 - Chronic obstructive pulmonary disease, unspecified (7) Chronic pain Current Visit: Yes Status: Chronic Assessment and plan: Patient noted to have multiple complaints involving generalized body aches and pains all over due to underlying chronic pain syndrome and fibromyalgia. Continue home medications. Qualifiers: Chronic pain type: chronic pain syndrome Qualified Code(s): G89.4 - Chronic pain syndrome (8) Hx of polymyalgia rheumatica Current Visit: Yes Status: Chronic (9) Hypertension Current Visit: Yes Status: Chronic Qualifiers: Hypertension type: essential hypertension Qualified Code(s): I10 - Essential (primary) hypertension (10) Physical deconditioning Current Visit: Yes Status: Chronic Assessment and plan: Patient noted to have home health services at home, which will be resumed at time of discharge. Not agreeable to being placed in an extended care facility. (11) Depression Current Visit: Yes Status: Chronic Qualifiers: Depression Type: unspecified Qualified Code(s): F32.9 - Major depressive disorder, single episode, unspecified - Subjective Interval history: Reports nausea. Has multiple complaints, most of which are chronic, like body aches all over, feeling really sick and weak and tired. No chest pain, shortness of breath, abdominal pain or vomiting. - Constitutional Vitals: Temp Pulse Resp BP Pulse Ox 98.1 F 101 17 101/62 98 07/24/16 15:37 07/24/16 15:37 07/24/16 15:37 07/24/16 15:37 07/24/16 15:37 General appearance: Present: A&O X 3, answers questions appropriately - Head Head exam: Present: atraumatic, normocephalic - Neck Neck exam general surgery: Present: supple, trachea midline. Absent: lymphadenopathy - Respiratory Respiratory exam: Present: rales (Bibasal crackles). Absent: accessory muscle use, rhonchi, wheezes - Cardiovascular Cardiovascular exam: Present: RRR, +S1, +S2. Absent: diastolic murmur, gallop, rubs, systolic murmur - GI/Abdominal GI/Abdominal exam: Present: normal bowel sounds, soft, no peritoneal signs. Absent: distended, tenderness - Extremities Exam Extremities exam: Present: pedal edema, warm, radial pulses palpable and symetrical. Absent: calf tenderness, cyanotic - Neurological Exam Neurological exam: Present: CN II-XII intact, oriented X3, no focal deficits ( Diffusely decreased motor power in bilateral lower extremities). Absent: pronater drift, facial droop, speech deficit - Skin Skin exam: Present: dry, intact Internal Medicine: Result - Labs CBC & Chem 7: 07/26/16 03:45 07/26/16 03:45 Labs: Cardiac Enzymes 07/24/16 Range/Units 14:03 Troponin I 0.08 H* (0-0.03) ng/mL - ABG Interpretation ABG results: PT/INR, D-dimer PT 10.8 Seconds (9.4-12.1) 07/23/16 17:14 Consult Discharge Plan - Plan Referrals: NO,PCP [Primary Care Provider] -
[2016-07-24] MEDS: Vancomycin 1,000 MG in D5% in Water 250 ML IVPB SCH (20:45)
[2016-07-24] MEDS: Latanoprost 2.5 ML BOTTLE BOTH EYES SCH (20:55)
[2016-07-24] MEDS: Budesonide/Formoterol 80/4.5 MDI IH SCH (21:30)
[2016-07-25 03:53] LABS: Basophils % 0.2 %; Eosinophils # 0.1 K/mcL (0.0-0.6); Eosinophils % 0.6 %; Hematocrit 29.3 % (35.3-44.9); Hemoglobin 9.4 g/dL (11.5-15.4); Immature Granulocytes % 1.6 % (0-4); Immature Platelets 2.8 % (1.1-6.1); Lymphocytes # 2.9 K/mcL (0.6-4.6); Lymphocytes % 17.6 %; Mean Corpuscular HGB Conc 32.1 g/dL (31.6-35.5); Mean Corpuscular Volume 96.7 fL (83.0-100.0); Mean Platelet Volume 9.9 fL (9.4-12.4); Monocytes # 0.8 K/mcL (0.0-1.3); Monocytes % 4.8 %; Neutrophils # 12.5 K/mcL (1.6-8.9); Platelet Count 199 K/mcL (140-400); Red Blood Count 3.03 M/mcL (3.82-4.97); Red Cell Distribution Width 14.5 % (11.5-14.5); Segmented Neutrophils % 75.2 %
[2016-07-25 04:03] LABS: BUN/Creatinine Ratio 16 (6-26); Blood Urea Nitrogen 17 mg/dL (7-20); Calcium 8.5 mg/dL (8.6-10.8); Chloride 85 mEq/L (98-109); Glucose 77 mg/dL (70-99); Osmolality,Calculated 278 (280-300); Potassium 3.6 mEq/L (3.5-4.5); Sodium 134 mEq/L (136-145); eGFR For African Americans > 60 (> 60); eGFR For Non-African Americans 50 (> 60)
[2016-07-25 04:10] LABS: Carbon Dioxide 40 mEq/L (19-29)
[2016-07-25] MEDS: ALPRAZolam 1 MG TABLET PO PRN ×3 (04:45→17:59)
[2016-07-25] MEDS: *HR* OxyCODONE/APAP 10/325 TABLET PO PRN ×4 (06:14→20:34)
[2016-07-25] MEDS: Ondansetron 4 MG/2 ML VIAL IVP PRN (06:15)
[2016-07-25] MEDS: Budesonide/Formoterol 80/4.5 MDI IH SCH ×2 (07:59→20:22)
[2016-07-25] MEDS ORDERED: Levofloxacin 750 MG/150 ML 750 MG/150 ML BAG IVPB SCH ×2 (09:00→13:00)
[2016-07-25] MEDS: Piperacillin/Tazobactam 3.375 GM in D5% in Water (Mini-Bag+) 100 ML IVPB SCH ×3 (09:14→23:19)
[2016-07-25] MEDS: *HR* Heparin 5,000 UNIT/ML VIAL SQ SCH ×3 (09:17→23:21)
[2016-07-25] MEDS: predniSONE 10 MG TABLET PO SCH (09:17)
[2016-07-25] MEDS: Furosemide 20 MG/2 ML VIAL IVP SCH ×2 (09:18→20:26)
[2016-07-25] MEDS: Magnesium Oxide 400 MG TABLET PO SCH ×2 (09:20→20:33)
[2016-07-25] MEDS: Metoprolol XL (24 HR) Succ 50 MG TAB.ER.24H PO SCH (09:20)
[2016-07-25] MEDS: Ascorbic Acid 500 MG TABLET PO SCH (09:20)
[2016-07-25] MEDS: Aspirin Enteric Coated 81 MG Tablet PO SCH (09:20)
[2016-07-25] MEDS: Silvasorb 44.4 ML TUBE TP SCH (09:32)
[2016-07-25] MEDS: Brinzolamide 1% 10 ML BOTTLE BOTH EYES SCH ×4 (09:32→20:33)
--- NOTE | 2016-07-25 11:20 | Internal Med Progress Note ---
Date of Encounter: 07/25/16 Time of Encounter: 11:18 - Assessment and plan (1) HCAP (healthcare-associated pneumonia) Current Visit: Yes Status: Acute Assessment and plan: Patient is noted to be improving. Preliminary blood, urine and sputum cultures remained negative. Continue broad-spectrum IV antibiotics until final culture results-Levaquin, Zosyn and vancomycin. Continue supplemental oxygen as needed. Up-to-date on influenza immunization. (2) Altered mental status Current Visit: Yes Status: Resolved Qualifiers: Altered mental status type: transient alteration of awareness Qualified Code(s): R40.4 - Transient alteration of awareness (3) CHF (congestive heart failure) Current Visit: Yes Status: Acute Assessment and plan: Noted to have significant urine output with IV Lasix and at least 2-3 pound weight loss. Patient remains asymptomatic and at baseline oxygen requirements. Continue IV Lasix at low dose along with fluid restriction, strict urine output monitoring and daily weights. Continue beta reyna, ARB. Echocardiogram done during her previous hospitalization about 2 weeks back shows significantly decreased ejection fraction 25-30% with global left ventricular hypokinesis. Serum troponin was noted to be adynamic, around 0.09. Qualifiers: Congestive heart failure type: systolic Congestive heart failure chronicity : acute Qualified Code(s): I50.21 - Acute systolic (congestive) heart failure (4) Elevated troponin Current Visit: Yes Status: Acute Assessment and plan: Likely related to demand ischemia from underlying infection and systolic dysfunction. Troponins stable. (5) CAD (coronary artery disease) Current Visit: Yes Status: Chronic Qualifiers: Coronary Disease-Associated Artery/Lesion type: [place] artery [place] vs. transplanted heart: [place] heart Associated angina: without angina Qualified Code(s): I25.10 - Atherosclerotic heart disease of [place] coronary artery without angina pectoris (6) COPD (chronic obstructive pulmonary disease) Current Visit: Yes Status: Chronic Assessment and plan: Not noted to be in acute exacerbation. Continue supplemental oxygen, bronchodilators. Qualifiers: COPD type: unspecified COPD Qualified Code(s): J44.9 - Chronic obstructive pulmonary disease, unspecified (7) Chronic pain Current Visit: Yes Status: Chronic Assessment and plan: Patient noted to have multiple complaints involving generalized body aches and pains all over due to underlying chronic pain syndrome and fibromyalgia. Increase Percocet to every 4 hourly when necessary and according to her home regimen. Qualifiers: Chronic pain type: chronic pain syndrome Qualified Code(s): G89.4 - Chronic pain syndrome (8) Hx of polymyalgia rheumatica Current Visit: Yes Status: Chronic (9) Hypertension Current Visit: Yes Status: Chronic Qualifiers: Hypertension type: essential hypertension Qualified Code(s): I10 - Essential (primary) hypertension (10) Physical deconditioning Current Visit: Yes Status: Chronic (11) Depression Current Visit: Yes Status: Chronic Qualifiers: Depression Type: unspecified Qualified Code(s): F32.9 - Major depressive disorder, single episode, unspecified - Subjective Interval history: Reports- "You can't let me in here. I cannot reach Kleenex, cannot reach water, cannot lift up my arm, I'm shaking all over, I'm legally blind, cannot see what time it is, please help me, please help me!!" Has multiple chronic complaints; no nausea, vomiting, chest pain, cough, shortness of breath today; not interested in knowing her daily plan of care and clinical improvement; - Constitutional Vitals: Temp Pulse Resp BP Pulse Ox 97.9 F 76 16 109/65 98 07/25/16 07:28 07/25/16 07:28 07/25/16 08:01 07/25/16 07:28 07/25/16 08:01 General appearance: Present: A&O X 2, answers questions appropriately - Respiratory Respiratory exam: Present: rales (B/L coarse crackles posteriorly). Absent: accessory muscle use, rhonchi, wheezes - Cardiovascular Cardiovascular exam: Present: RRR, +S1, +S2. Absent: diastolic murmur, gallop, rubs, systolic murmur - Extremities Exam Extremities exam: Present: pedal edema, warm, radial pulses palpable and symetrical. Absent: calf tenderness, cyanotic Internal Medicine: Result - Labs CBC & Chem 7: 07/26/16 03:45 07/26/16 03:45 Labs: Short CBC 07/25/16 Range/Units 03:43 WBC 16.6 H (4.3-11.1) K/mcL Hgb 9.4 L (11.5-15.4) g/dL Hct 29.3 L (35.3-44.9) % Plt Count 199 (140-400) K/mcL Neutrophils # 12.5 H (1.6-8.9) K/mcL BMP 07/25/16 03:43 Sodium 134 L Potassium 3.6 Chloride 85 L Carbon Dioxide 40 H* BUN 17 Creatinine 1.04 Glucose 77 Calcium 8.5 L Cardiac Enzymes 07/24/16 Range/Units 14:03 Troponin I 0.08 H* (0-0.03) ng/mL - ABG Interpretation ABG results: PT/INR, D-dimer PT 10.8 Seconds (9.4-12.1) 07/23/16 17:14 - VTE Documentation of Mechanical Device: Intermittent pneumatic compression device Consult Discharge Plan - Plan Referrals: NO,PCP [Primary Care Provider] -
[2016-07-25] MEDS ORDERED: Levofloxacin 500 MG/100 ML 500 MG/100 ML BAG IVPB SCH (13:00)
[2016-07-25] MEDS: Vancomycin 1,000 MG in D5% in Water 250 ML IVPB SCH (20:31)
[2016-07-25] MEDS: Latanoprost 2.5 ML BOTTLE BOTH EYES SCH (20:33)
[2016-07-26] MEDS: *HR* OxyCODONE/APAP 10/325 TABLET PO PRN ×6 (00:29→23:09)
[2016-07-26] MEDS: ALPRAZolam 1 MG TABLET PO PRN ×3 (01:13→19:57)
[2016-07-26 04:00] LABS: Basophils % 0.2 %; Eosinophils # 0.4 K/mcL (0.0-0.6); Eosinophils % 2.6 %; Hematocrit 27.6 % (35.3-44.9); Hemoglobin 9.1 g/dL (11.5-15.4); Immature Granulocytes % 1.2 % (0-4); Lymphocytes % 19.7 %; Mean Corpuscular Hemoglobin 31.2 pg (28.0-33.3); Mean Corpuscular Volume 94.5 fL (83.0-100.0); Mean Platelet Volume 9.6 fL (9.4-12.4); Monocytes # 0.6 K/mcL (0.0-1.3); Platelet Count 178 K/mcL (140-400); Red Blood Count 2.92 M/mcL (3.82-4.97); Red Cell Distribution Width 14.4 % (11.5-14.5); Segmented Neutrophils % 72.3 %
[2016-07-26 04:22] LABS: Calcium 8.3 mg/dL (8.6-10.8); Potassium 3.7 mEq/L (3.5-4.5)
[2016-07-26] MEDS: *HR* Heparin 5,000 UNIT/ML VIAL SQ SCH ×3 (06:10→23:09)
[2016-07-26] MEDS: Budesonide/Formoterol 80/4.5 MDI IH SCH ×2 (08:01→20:11)
[2016-07-26] MEDS: predniSONE 10 MG TABLET PO SCH (09:10)
[2016-07-26] MEDS: Ascorbic Acid 500 MG TABLET PO SCH (09:11)
[2016-07-26] MEDS: Magnesium Oxide 400 MG TABLET PO SCH ×2 (09:12→19:57)
[2016-07-26] MEDS: Furosemide 20 MG/2 ML VIAL IVP SCH (09:12)
[2016-07-26] MEDS: Aspirin Enteric Coated 81 MG Tablet PO SCH (09:12)
[2016-07-26] MEDS: Brinzolamide 1% 10 ML BOTTLE BOTH EYES SCH ×4 (09:12→20:01)
[2016-07-26] MEDS: Piperacillin/Tazobactam 3.375 GM in D5% in Water (Mini-Bag+) 100 ML IVPB SCH (09:12)
[2016-07-26] MEDS: Metoprolol XL (24 HR) Succ 50 MG TAB.ER.24H PO SCH (09:13)
[2016-07-26] MEDS: Silvasorb 44.4 ML TUBE TP SCH (09:13)
--- NOTE | 2016-07-26 13:22 | Internal Med Progress Note ---
Date of Encounter: 07/26/16 Time of Encounter: 12:10 - Assessment and plan (1) HCAP (healthcare-associated pneumonia) Current Visit: Yes Status: Acute Assessment and plan: Patient is noted to be improving. Improving leukocytosis. Blood, urine and sputum cultures remained negative. Continue IV Levaquin and hold vancomycin and Zosyn at this time. Continue supplemental oxygen as needed. Up-to-date on influenza immunization. (2) Altered mental status Current Visit: Yes Status: Resolved Qualifiers: Altered mental status type: transient alteration of awareness Qualified Code(s): R40.4 - Transient alteration of awareness (3) CHF (congestive heart failure) Current Visit: Yes Status: Acute Assessment and plan: Improving clinically. Noted to have acute kidney injury, likely related to the use of IV Lasix. Review of previous medical records indicate that the patient had similar episode during previous admission. Stop IV Lasix and resume home dose of 20 mg by mouth twice daily. Continue fluid restriction, strict urine output monitoring and daily weights. Continue beta reyna, ARB. Echocardiogram done during her previous hospitalization about 2 weeks back shows significantly decreased ejection fraction 25-30% with global left ventricular hypokinesis. Serum troponin was noted to be adynamic, around 0.09. Qualifiers: Congestive heart failure type: systolic Congestive heart failure chronicity : acute Qualified Code(s): I50.21 - Acute systolic (congestive) heart failure (4) Elevated troponin Current Visit: Yes Status: Acute (5) CAD (coronary artery disease) Current Visit: Yes Status: Chronic Qualifiers: Coronary Disease-Associated Artery/Lesion type: [place] artery [place] vs. transplanted heart: [place] heart Associated angina: without angina Qualified Code(s): I25.10 - Atherosclerotic heart disease of [place] coronary artery without angina pectoris (6) COPD (chronic obstructive pulmonary disease) Current Visit: Yes Status: Chronic Qualifiers: COPD type: unspecified COPD Qualified Code(s): J44.9 - Chronic obstructive pulmonary disease, unspecified (7) Chronic pain Current Visit: Yes Status: Chronic Qualifiers: Chronic pain type: chronic pain syndrome Qualified Code(s): G89.4 - Chronic pain syndrome (8) Hx of polymyalgia rheumatica Current Visit: Yes Status: Chronic (9) Hypertension Current Visit: Yes Status: Chronic Qualifiers: Hypertension type: essential hypertension Qualified Code(s): I10 - Essential (primary) hypertension (10) Physical deconditioning Current Visit: Yes Status: Chronic (11) Depression Current Visit: Yes Status: Chronic Qualifiers: Depression Type: unspecified Qualified Code(s): F32.9 - Major depressive disorder, single episode, unspecified - Subjective Interval history: Reports not feeling too well, no specific c/o- chest pain, shortness of breath but feels as though she has fluid in her throat; no fever, chills; - Constitutional Vitals: Temp Pulse Resp BP Pulse Ox 98.4 F 78 15 114/58 98 07/26/16 11:54 07/26/16 11:54 07/26/16 11:54 07/26/16 11:54 07/26/16 11:54 General appearance: Present: A&O X 2, answers questions appropriately - Respiratory Respiratory exam: Present: rales (bibasal inspiratory crackles+). Absent: accessory muscle use, rhonchi, wheezes - Cardiovascular Cardiovascular exam: Present: RRR, +S1, +S2. Absent: diastolic murmur, gallop, rubs, systolic murmur - GI/Abdominal GI/Abdominal exam: Present: normal bowel sounds, soft, no peritoneal signs. Absent: distended, tenderness - Extremities Exam Extremities exam: Present: pedal edema, warm, radial pulses palpable and symetrical. Absent: calf tenderness, cyanotic - Neurological Exam Neurological exam: Present: CN II-XII intact, oriented X3, no focal deficits ( diffusely decreased motor power in B/L LE). Absent: pronater drift, facial droop, speech deficit Internal Medicine: Result - Labs CBC & Chem 7: 07/26/16 03:45 07/26/16 03:45 Labs: Short CBC 07/26/16 Range/Units 03:45 WBC 15.2 H (4.3-11.1) K/mcL Hgb 9.1 L (11.5-15.4) g/dL Hct 27.6 L (35.3-44.9) % Plt Count 178 (140-400) K/mcL Neutrophils # 11.0 H (1.6-8.9) K/mcL BMP 07/26/16 03:45 Sodium 131 L Potassium 3.7 Chloride 83 L Carbon Dioxide 37 H BUN 15 Creatinine 1.17 H Glucose 77 Calcium 8.3 L - ABG Interpretation ABG results: PT/INR, D-dimer PT 10.8 Seconds (9.4-12.1) 07/23/16 17:14 - VTE Documentation of Mechanical Device: Intermittent pneumatic compression device Consult Discharge Plan - Plan Referrals: NO,PCP [Primary Care Provider] -
[2016-07-26] MEDS: Latanoprost 2.5 ML BOTTLE BOTH EYES SCH (20:01)
[2016-07-27] MEDS: *HR* OxyCODONE/APAP 10/325 TABLET PO PRN ×2 (03:12→09:49)
[2016-07-27 04:32] LABS: Basophils % 0.2 %; Eosinophils # 0.1 K/mcL (0.0-0.6); Eosinophils % 0.5 %; Hematocrit 27.7 % (35.3-44.9); Hemoglobin 9.2 g/dL (11.5-15.4); Immature Granulocytes % 1.5 % (0-4); Lymphocytes # 2.4 K/mcL (0.6-4.6); Lymphocytes % 18.5 %; Mean Corpuscular HGB Conc 33.2 g/dL (31.6-35.5); Mean Corpuscular Hemoglobin 30.9 pg (28.0-33.3); Mean Platelet Volume 9.8 fL (9.4-12.4); Monocytes # 0.4 K/mcL (0.0-1.3); Monocytes % 2.7 %; Platelet Count 190 K/mcL (140-400); Red Blood Count 2.98 M/mcL (3.82-4.97); Red Cell Distribution Width 14.3 % (11.5-14.5); Segmented Neutrophils % 76.6 %
[2016-07-27 04:44] LABS: Calcium 8.8 mg/dL (8.6-10.8); Magnesium 1.7 mg/dL (1.6-2.6); Potassium 3.7 mEq/L (3.5-4.5)
[2016-07-27] MEDS: ALPRAZolam 1 MG TABLET PO PRN ×2 (05:27→10:56)
[2016-07-27] MEDS ORDERED: Furosemide 20 MG TABLET PO SCH (09:00)
[2016-07-27] MEDS: Metoprolol XL (24 HR) Succ 50 MG TAB.ER.24H PO SCH (09:50)
[2016-07-27] MEDS: Magnesium Oxide 400 MG TABLET PO SCH (09:50)
[2016-07-27] MEDS: predniSONE 10 MG TABLET PO SCH (09:50)
[2016-07-27] MEDS: Ascorbic Acid 500 MG TABLET PO SCH (09:50)
[2016-07-27] MEDS: Aspirin Enteric Coated 81 MG Tablet PO SCH (09:50)
[2016-07-27] MEDS: Silvasorb 44.4 ML TUBE TP SCH (09:51)
[2016-07-27] MEDS: *HR* Heparin 5,000 UNIT/ML VIAL SQ SCH (09:55)
[2016-07-27] MEDS: Brinzolamide 1% 10 ML BOTTLE BOTH EYES SCH ×2 (09:55→10:02)
[2016-07-27 10:52] VITALS: BP 111/54
--- NOTE | 2016-07-27 11:32 | Discharge Summary ---
Date of Encounter: 07/27/16 Time of Encounter: 11:21 - Discharge Diagnosis (1) HCAP (healthcare-associated pneumonia) Priority: Primary Status: Acute (2) Altered mental status Priority: Primary Status: Resolved Qualifiers: Altered mental status type: transient alteration of awareness Qualified Code(s): R40.4 - Transient alteration of awareness (3) CHF (congestive heart failure) Priority: Primary Status: Acute Qualifiers: Congestive heart failure type: systolic Congestive heart failure chronicity : acute Qualified Code(s): I50.21 - Acute systolic (congestive) heart failure (4) Elevated troponin Priority: Primary Status: Acute (5) CAD (coronary artery disease) Priority: Secondary Status: Chronic Qualifiers: Coronary Disease-Associated Artery/Lesion type: [place] artery [place] vs. transplanted heart: [place] heart Associated angina: without angina Qualified Code(s): I25.10 - Atherosclerotic heart disease of [place] coronary artery without angina pectoris (6) COPD (chronic obstructive pulmonary disease) Priority: Secondary Status: Chronic Qualifiers: COPD type: unspecified COPD Qualified Code(s): J44.9 - Chronic obstructive pulmonary disease, unspecified (7) Chronic pain Priority: Secondary Status: Chronic Qualifiers: Chronic pain type: chronic pain syndrome Qualified Code(s): G89.4 - Chronic pain syndrome (8) Hx of polymyalgia rheumatica Priority: Secondary Status: Chronic (9) Hypertension Priority: Secondary Status: Chronic Qualifiers: Hypertension type: essential hypertension Qualified Code(s): I10 - Essential (primary) hypertension (10) Physical deconditioning Priority: Secondary Status: Chronic (11) Depression Priority: Secondary Status: Chronic Qualifiers: Depression Type: unspecified Qualified Code(s): F32.9 - Major depressive disorder, single episode, unspecified - Discharge Medications Prescriptions: Furosemide [Lasix] 20 mg PO DAILY #30 tablet Levofloxacin [Levaquin] 250 mg PO DAILY #3 tablet Home Medications: Ascorbic Acid [Vitamin C] 1,000 mg PO DAILY 07/04/16 [History] Brimonidine Tartrate/Timolol [Combigan 0.2%-0.5% Eye Drops] 1 drop BOTH EYES BID 07/04/16 [History] Brinzolamide 1% [Azopt] 1 drop BOTH EYES QID 07/04/16 [History] Candesartan Cilexetil [Atacand] 4 mg PO DAILY 07/04/16 [History] Cholecalciferol (D-3) [Vitamin D] 1,000 unit PO DAILY 07/04/16 [History] Cyanocobalamin (Vitamin B-12) [Vitamin B12] 1,000 mcg PO DAILY 07/04/16 [History ] Cyclosporine [Restasis] 1 each BOTH EYES BID 07/04/16 [History] Docusate [Colace] 100 mg PO BID 07/04/16 [History] Ferrous Sulfate 325 mg PO DAILY 07/04/16 [History] Fluticasone Propionate Nasal [Flonase] 100 mcg NS DAILY 07/04/16 [History] Fluticasone/Salmeterol [Advair 250-50 Diskus] 1 each IH BID 07/04/16 [History] Furosemide [Lasix] 20 mg PO DAILY 07/04/16 [History] Latanoprost [Xalatan] 1 drop BOTH EYES HS 07/04/16 [History] Levalbuterol HCl [Xopenex Neb] 1.25 mg IH QID 07/04/16 [History] Levothyroxine [Synthroid] 100 mcg PO DAILY 07/04/16 [History] Metoprolol XL (24 HR) Succ [Toprol Xl] 50 mg PO DAILY 07/04/16 [History] Nitroglycerin 0.3 mg SL Q5MIN PRN 07/04/16 [History] Nystatin/Triamcinolone CRM [Mycolog] 1 appl TP Q48H 07/04/16 [History] Omeprazole/Sodium Bicarbonate [Zegerid 40 mg Capsule] 1 each PO DAILY 07/04/16 [ History] Sertraline [Zoloft] 50 mg PO DAILY 07/04/16 [History] Sodium Chloride for inhalation [Nebusal] 4 ml IH BID 07/04/16 [History] Ubidecarenone [Coenzyme Q10] 200 mg PO DAILY 07/04/16 [History] Vit C/E/Zn/Coppr/Lutein/Zeaxan [Preservision Areds 2 Softgel] 2 cap PO DAILY 06/08 [History] Alprazolam [Xanax 1 MG Tablet] 1 mg PO TID PRN #21 tablet 07/11/16 [Rx] Aspirin Enteric Coated [Aspirin EC] 81 mg PO DAILY #30 tablet. 07/11/16 [Rx] Atorvastatin [Lipitor] 40 mg PO HS #30 tablet 07/11/16 [Rx] GuaiFENesin ER [Mucinex] 600 mg PO BID #10 tbbp.12hr 07/11/16 [Rx] Magnesium Oxide [Mag-Ox] 400 mg PO BID #28 tablet 07/11/16 [Rx] OxyCODONE/APAP 10/325 [Percocet 10/325 MG] 1 each PO Q6HR PRN #30 tablet [Rx] Oxygen 3 l IN CONT #1 each 07/11/16 [Rx] PredniSONE 10 mg PO DAILY #56 tablet 07/11/16 [Rx] Silvasorb 1 appl TP DAILY #1 tube 07/11/16 [Rx] Furosemide [Lasix] 20 mg PO DAILY #30 tablet 07/27/16 [Rx] Levofloxacin [Levaquin] 250 mg PO DAILY #3 tablet 07/27/16 [Rx] Allergies/Adverse Reactions: Allergies escitalopram [From Lexapro] Allergy (Verified 07/04/16 15:41) See Comments sulfamethoxazole [From Bactrim] Allergy (Verified 07/04/16 15:41) See Comments trimethoprim [From Bactrim] Allergy (Verified 07/04/16 15:41) See Comments Date of admission: 07/24/16 13:33 Primary care physician: PCP NO Consults: 07/26/16 10:27 Consult to Occupational Therapy [CONS] Routine Comment: Evaluate, develop and implement POC Consult to Physical Therapy [CONS] Routine Comment: Evaluate, develop and implement POC Discharging clinician: Dulce Hidalgo Anticipated date of discharge: 07/27/16 - Patient Status Disposition: Home Health Service Condition: Fair Functional capacity at discharge: bed bound Overall status at discharge: patient is progressing back to baseline - Discharge Instructions Instructions: Furosemide (By mouth), Levofloxacin (By mouth), Pneumonia (DC) Follow Up With: NO,PCP [Primary Care Provider] - - Diet and Activity Activity: as per physical therapy, wear oxygen at all times Diet: low fat, low cholesterol, low salt diet (fluid restriction to 1.2L/day) Hospital course: Ms. Schulte is a 86 year old female with the above medical problems, admitted with altered mental status, cough and respiratory distress. Patient was noted to have acute on chronic systolic CHF and had a recent hospitalization with the same complaints. Patient also has a very poor baseline functional status with chronic pain syndrome, depression and dependence for minor activities like reaching for water, moving her arms etc. Patient was started on fluid restriction, IV diuretics, urine output monitoring and daily weights. She was noted to have significant urine output on this regimen and some weight loss, however she had acute kidney injury likely related to the use of IV Lasix. On day 3, Lasix was switched to low-dose oral form and her serum creatinine began to improve. She is also noted to have hyponatremia, which is also likely related to the use of IV diuretics and may take some time to stabilize. She remained asymptomatic and had no mental status changes or cardiopulmonary symptoms while in the hospital except complaints related to chronic pain, generalized fatigue and depression. She was also noted to have slight troponin leak, which remained adynamic and most likely related to her acute CHF. She was evaluated by cardiology during her previous hospitalization and given her multiple other hospitalizations at various facilities including [facility] and have poor baseline functional status, she was recommended to be on medical management. Her troponins are now trending down and she never had any chest pain while in the hospital. She was also noted to have leukocytosis at the time of admission and she was started on broad-spectrum IV antibiotics for possible healthcare associated pneumonia as chest x-ray could not rule out underlying infiltrates. Blood, urine and sputum cultures remained negative and antibiotics will be escalated. Her oxygen requirements are currently at baseline and she is medically stable for discharge home, with reinstatement of home health services. Patient refuses to be placed in extended care facility. - Time Spent with Patient Total time spent providing and/or coordinating discharge services: Greater than 30 minutes (45 min) - Constitutional Vitals: Temp Pulse Resp BP Pulse Ox 97.6 F 95 16 111/54 100 07/27/16 10:50 07/27/16 10:50 07/27/16 10:50 07/27/16 10:50 07/27/16 10:50 General appearance: Present: A&O X 2, answers questions appropriately - Respiratory Respiratory exam: Present: rales (dry B/L crackles). Absent: accessory muscle use, rhonchi, wheezes - Cardiovascular Cardiovascular exam: Present: RRR, +S1, +S2. Absent: diastolic murmur, gallop, rubs, systolic murmur - VTE Documentation of Mechanical Device: Intermittent pneumatic compression device
--- NOTE | 2016-07-27 11:35 | Physician Discharge Referral ---
Home Health/Hosp Referral Info Transfer to: Home Health Attending Provider: Dulce Hidalgo Provider in Charge Post Discharge: PCP - Diagnosis (1) HCAP (healthcare-associated pneumonia) Priority: Primary Status: Acute (2) Altered mental status Priority: Primary Status: Resolved (3) CHF (congestive heart failure) Priority: Primary Status: Acute (4) Elevated troponin Priority: Primary Status: Acute (5) CAD (coronary artery disease) Priority: Secondary Status: Chronic (6) COPD (chronic obstructive pulmonary disease) Priority: Secondary Status: Chronic (7) Chronic pain Priority: Secondary Status: Chronic (8) Hx of polymyalgia rheumatica Priority: Secondary Status: Chronic (9) Hypertension Priority: Secondary Status: Chronic (10) Physical deconditioning Priority: Secondary Status: Chronic (11) Depression Priority: Secondary Status: Chronic - Respiratory Orders Oxygen / L per min (2-3L/min via NC) Smoking Cessation: Smoking cessation has been advised. For more information, call the [facility] Quit Line at 8-689-ULML-NOW. - Diet/Nutrition Diet/Nutrition Orders: No Added Salt (LENORE), Cardiac - Activity Activity Orders: Up ad nickie - Services Needed Following services are medically necessary services: Nursing, Physical Therapy, Occupational Therapy - Transfer Medications Prescriptions: Furosemide [Lasix] 20 mg PO DAILY #30 tablet Levofloxacin [Levaquin] 250 mg PO DAILY #3 tablet Home Medications: Ascorbic Acid [Vitamin C] 1,000 mg PO DAILY 07/04/16 [History] Brimonidine Tartrate/Timolol [Combigan 0.2%-0.5% Eye Drops] 1 drop BOTH EYES BID 07/04/16 [History] Brinzolamide 1% [Azopt] 1 drop BOTH EYES QID 07/04/16 [History] Candesartan Cilexetil [Atacand] 4 mg PO DAILY 07/04/16 [History] Cholecalciferol (D-3) [Vitamin D] 1,000 unit PO DAILY 07/04/16 [History] Cyanocobalamin (Vitamin B-12) [Vitamin B12] 1,000 mcg PO DAILY 07/04/16 [History ] Cyclosporine [Restasis] 1 each BOTH EYES BID 07/04/16 [History] Docusate [Colace] 100 mg PO BID 07/04/16 [History] Ferrous Sulfate 325 mg PO DAILY 07/04/16 [History] Fluticasone Propionate Nasal [Flonase] 100 mcg NS DAILY 07/04/16 [History] Fluticasone/Salmeterol [Advair 250-50 Diskus] 1 each IH BID 07/04/16 [History] Furosemide [Lasix] 20 mg PO DAILY 07/04/16 [History] Latanoprost [Xalatan] 1 drop BOTH EYES HS 07/04/16 [History] Levalbuterol HCl [Xopenex Neb] 1.25 mg IH QID 07/04/16 [History] Levothyroxine [Synthroid] 100 mcg PO DAILY 07/04/16 [History] Metoprolol XL (24 HR) Succ [Toprol Xl] 50 mg PO DAILY 07/04/16 [History] Nitroglycerin 0.3 mg SL Q5MIN PRN 07/04/16 [History] Nystatin/Triamcinolone CRM [Mycolog] 1 appl TP Q48H 07/04/16 [History] Omeprazole/Sodium Bicarbonate [Zegerid 40 mg Capsule] 1 each PO DAILY 07/04/16 [ History] Sertraline [Zoloft] 50 mg PO DAILY 07/04/16 [History] Sodium Chloride for inhalation [Nebusal] 4 ml IH BID 07/04/16 [History] Ubidecarenone [Coenzyme Q10] 200 mg PO DAILY 07/04/16 [History] Vit C/E/Zn/Coppr/Lutein/Zeaxan [Preservision Areds 2 Softgel] 2 cap PO DAILY 06/08 [History] Alprazolam [Xanax 1 MG Tablet] 1 mg PO TID PRN #21 tablet 07/11/16 [Rx] Aspirin Enteric Coated [Aspirin EC] 81 mg PO DAILY #30 tablet. 07/11/16 [Rx] Atorvastatin [Lipitor] 40 mg PO HS #30 tablet 07/11/16 [Rx] GuaiFENesin ER [Mucinex] 600 mg PO BID #10 tbbp.12hr 07/11/16 [Rx] Magnesium Oxide [Mag-Ox] 400 mg PO BID #28 tablet 07/11/16 [Rx] OxyCODONE/APAP 10/325 [Percocet 10/325 MG] 1 each PO Q6HR PRN #30 tablet [Rx] Oxygen 3 l IN CONT #1 each 07/11/16 [Rx] PredniSONE 10 mg PO DAILY #56 tablet 07/11/16 [Rx] Silvasorb 1 appl TP DAILY #1 tube 07/11/16 [Rx] Furosemide [Lasix] 20 mg PO DAILY #30 tablet 07/27/16 [Rx] Levofloxacin [Levaquin] 250 mg PO DAILY #3 tablet 07/27/16 [Rx] Allergies/Adverse Reactions: Allergies escitalopram [From Lexapro] Allergy (Verified 07/04/16 15:41) See Comments sulfamethoxazole [From Bactrim] Allergy (Verified 07/04/16 15:41) See Comments trimethoprim [From Bactrim] Allergy (Verified 07/04/16 15:41) See Comments Certification: Further, I certify that my clinical findings support that this patient is homebound (i.e. absences from home require considerable and taxing effort and are for medical reasons or congregational services or infrequently or short duration when for other reasons) because: Homebound Reason: Patient requires assistance of a person or device to safely leave home, Leaving home requires considerable and taxing effort due to condition, Severity of cardiac or pulmonary status limits activity tolerance Attestation: My signature below is to certify that this patient is under my care and that I, or nurse practitioner, or a physician's administrative personal assistant working with me, has a face-to -face encounter with this patient.
[2016-07-27] MEDS: Budesonide/Formoterol 80/4.5 MDI IH SCH (11:42)
[2016-07-27] MEDS ORDERED: Aminoglycoside Consult 1 EACH MC ONE (15:14)
== END 2016-07-27 15:15 | disposition home health service (06) | DRG 291 ==
LOC: 2ANU 14:28 → EMEROO 14:28 → SUATTDRO 21:21 → 2ANU 21:39
PROVIDERS: ADMIT Pediatrics; ATTEND Internal Medicine